=== PATIENT | male | born 1960 | race Hispanic/Latino ===

== ENCOUNTER 2016-07-17 11:05 | Emergency (ER) | payer SELFPAY ==
--- NOTE | 2016-07-17 11:41 | XRay Report ---
CHEST XRAY, 2 VIEWS: History: Shortness of breath. Findings: There is mild diffuse interstitial coarsening. The lungs are hyperexpanded but clear. No infiltrate, pleural fluid or pneumothorax is detected. The cardiac silhouette and pulmonary vasculature are within normal limits for technique. The bony thorax is unremarkable. IMPRESSION: Changes consistent with COPD. No acute cardiopulmonary process.
[2016-07-17 12:02] LABS: Basophils % (Auto) 0.7 % (0.0-1.8); Eosinophils % (Auto) 0.7 % (0.0-4.3); Hematocrit 52.5 % (35.5-45.6); Hemoglobin 17.2 gm/dl (11.8-15.2); Mean Corpuscular HGB Conc 33 % (32-34); Mean Corpuscular Hemoglobin 31 pg (28-32); Mean Corpuscular Volume 95 fl (84-94); Platelet Count 179 K/mm3 (140-440); Red Blood Count 5.54 M/mm3 (3.65-5.03); Red Cell Distribution Width 13.6 % (13.2-15.2); White Blood Count 4.6 K/mm3 (4.5-11.0)
[2016-07-17 12:12] LABS: Anion Gap 21 mmol/L; Blood Urea Nitrogen 8 mg/dL (9-20); Calcium 9.7 mg/dL (8.4-10.2); Carbon Dioxide 27 mmol/L (22-30); Chloride 93.1 mmol/L (98-107); Glucose 100 mg/dL (75-100); Potassium 4.7 mmol/L (3.6-5.0); Sodium 136 mmol/L (137-145)
[2016-07-17] MEDS ORDERED: DUONEB 0.5 MG-3 MG/3 ML SOLN IH ONE (17:40)
--- NOTE | 2016-07-17 17:43 | Emergency Department Report ---
HPI - General Chief Complaint: Dyspnea/Respdistress Time Seen by Provider: 07/17/16 17:26 - HPI HPI: This is a 55-year-old male who presents to the emergency department with complaint of acute on chronic shortness of breath. Has been going on for the past 1.5 years but has worsened over the past few months. Over the past few days patient is also complaining of some intermittent palpitations. He complains of his bilateral legs being "on fire." He has some intermittent chest pain when he takes deep breaths. Patient is a chronic tobacco smoker. He denies any illicit drug use or alcohol abuse. He does not have a primary care doctor. He has a past medical history of hypertension but is not on any medications for it. No recent travel or sick contacts at home. He denies any fever, nausea, vomiting, back pain. He has not taken anything for symptoms prior to presentation. ED Past Medical Hx - Past Medical History Hx Hypertension: Yes - Surgical History Additional Surgical History: murmur - Social History Smoking Status: Current Every Day Smoker Substance Use Type: None - Medications Home Medications: Home Medications Medication Instructions Recorded Confirmed Last Taken Type ALBUTEROL Inhaler [ProAir HFA 2 puff IH QID PRN #1 inhalation 07/17/16 Unknown Rx Inhaler] Aspirin [Aspirin BABY CHEW TAB] 81 mg PO QDAY 07/17/16 07/17/16 Unknown History Gabapentin [Neurontin] 300 mg PO BID #40 cap 07/17/16 Unknown Rx predniSONE [Deltasone] 20 mg PO QDAY #5 tab 07/17/16 Unknown Rx ED Review of Systems ROS: Stated complaint: EH Other details as noted in HPI Comment: All other systems reviewed and negative Constitutional: denies: chills, fever Eyes: denies: eye pain, eye discharge, vision change ENT: denies: ear pain, throat pain Respiratory: cough, shortness of breath Cardiovascular: palpitations. denies: edema Gastrointestinal: denies: abdominal pain, nausea, diarrhea Genitourinary: denies: urgency, dysuria Musculoskeletal: denies: back pain, joint swelling Skin: denies: rash, lesions Neurological: denies: headache, weakness, paresthesias Physical Exam - Physical Exam Vital Signs: Vital Signs 07/17/16 11:18 Temperature 97.4 F L Pulse Rate 90 Respiratory 26 H Rate Blood Pressure 149/115 O2 Sat by Pulse 91 Oximetry Physical Exam: GENERAL: The patient is well-developed well-nourished. HEENT: Normocephalic. Atraumatic. Extraocular motions are intact. Patient has moist mucous membranes. Pupils equal reactive to light bilaterally. NECK: Supple. Trachea is midline. CHEST/LUNGS: Mild wheezing throughout the chest. No cough heard during examination. Mild tachypnea but no accessory muscle use. There is no respiratory distress noted. HEART/CARDIOVASCULAR: Regular. There is no tachycardia. There is no gallop rub or murmur. ABDOMEN: Abdomen is soft, nontender. Patient has normal bowel sounds. There is no abdominal distention. SKIN: Skin is warm and dry. NEURO: The patient is awake, alert, and oriented. The patient is cooperative. The patient has no focal neurologic deficits. The patient has normal speech. MUSCULOSKELETAL: There is no tenderness or deformity. There is no limitation range of motion. There is no evidence of acute injury. ED Course Vital Signs 07/17/16 11:18 Temperature 97.4 F L Pulse Rate 90 Respiratory 26 H Rate Blood Pressure 149/115 O2 Sat by Pulse 91 Oximetry - ABG Interpretation Ph: 7.4 PCO2: 43 PO2: 65 Bicarbonate: 26 Interpretation: other (hypoxia) ED Medical Decision Making - Lab Data Result diagrams: 07/17/16 11:38 07/17/16 11:38 - EKG Data -: EKG Interpreted by [place] EKG shows normal: sinus rhythm, axis, intervals, QRS complexes, ST-T waves Rate: normal - EKG Data When compared to previous EKG there are: previous EKG unavailable Interpretation: normal EKG - Radiology Data Radiology results: image reviewed interpreted by me: Chest x-ray shows some hyperinflation of the lungs and flattening of the diaphragms consistent with COPD. No obvious pneumonia, pleural effusions and no pneumothorax. - Medical Decision Making This is a 55-year-old male who presents to the emergency department with complaint of acute on chronic shortness of breath as well as some burning sensation of the lower extremities. The burning sensation appears most consistent with some peripheral neuropathy. He has good cap refill and has good pedal pulses. There is no obvious rash. Patient's lungs have some mild wheezing throughout the chest that he does not appear to be in any respiratory distress. Patient had a EKG that did not show any signs of ST elevation NH or dysrhythmia. Chest x-ray appeared most consistent with COPD. ABG shows hypoxia or hypoxemia but no significant hypercapnia. Patient had a negative d- dimer so no CT of the chest was necessary. He was given a breathing treatment and some steroids and upon reevaluation he is feeling improved. Patient had some mild hypoxia when he first arrived with a pulse ox of 92% on room air. However his oxygenation improved without oxygen supplementation. Due to the patient's significant tobacco abuse history, his chest x-ray appearance and the rest of his ED course, the patient appears as if he could have COPD. However he does not appear to be in any acute distress and does not require admission at this time. He will be given a prescription for albuterol inhaler, steroids and some Neurontin for his probable peripheral neuropathy. He was given multiple primary care clinics for follow-up. He will return to the ER with any worsening of symptoms or any acute distress. - Differential Diagnosis COPD, asthma, PE, CHF, pneumonia Critical Care Time: No Critical care attestation.: If time is entered above; I have spent that time in minutes in the direct care of this critically ill patient, excluding procedure time. ED Disposition Clinical Impression: Neuropathy, Tobacco abuse COPD (chronic obstructive pulmonary disease) Qualifiers: COPD type: unspecified COPD Qualified Code(s): J44.9 - Chronic obstructive pulmonary disease, unspecified Disposition: DISCHARGED TO HOME OR SELFCARE Is pt being admited?: No Condition: Stable Instructions: Chronic Obstructive Pulmonary Disease (ED), Peripheral Neuropathy (ED) Additional Instructions: Please follow-up with a primary care doctor in the next few days. Return to the emergency department with any worsening of your symptoms or any acute distress. Prescriptions: ALBUTEROL Inhaler [ProAir HFA Inhaler] 2 puff IH QID PRN #1 inhalation PRN Reason: Shortness Of Breath Gabapentin [Neurontin] 300 mg PO BID #40 cap predniSONE [Deltasone] 20 mg PO QDAY #5 tab Referrals: PRIMARY CARE, [Primary Care Provider] - 3-5 Days [facility] [Outside] - 3-5 Days [facility] [Outside] - 3-5 Days [facility] [Outside] - 3-5 Days [facility] [Outside] - 3-5 Days Time of Disposition: 20:16
[2016-07-17 21:28] VITALS: BP 134/95
[2016-07-18 10:16] LABS: ISTAT Base Excess 2; ISTAT DEVICE 0; ISTAT HCO3 26.4; ISTAT PCO2 42.9 (35-45); ISTAT PH 7.397 (7.35-7.45); ISTAT PO2 65 (80-105); ISTAT SO2 92; ISTAT TCO2 28
== END 2016-07-17 20:25 | disposition home or self-care (01) ==
LOC: ED 11:05
DX: J44.9 Chronic obstructive pulmonary disease, unspecified (principal); G62.9 Polyneuropathy, unspecified; F17.200 Nicotine dependence, unspecified, uncomplicated; I10 Essential (primary) hypertension
CPT/HCPCS: 36415; 71020; 80048; 82803; 84484; 85025; 85379; 93005; 93010; 94640

== ENCOUNTER 2016-12-27 11:54 | Emergency (ER) | payer MEDICAID ==
[2016-12-27 12:40] LABS: Basophils % (Auto) 0.7 % (0.0-1.8); Eosinophils % (Auto) 0.2 % (0.0-4.3); Hematocrit 47.4 % (35.5-45.6); Hemoglobin 16.3 gm/dl (11.8-15.2); Mean Corpuscular HGB Conc 34 % (32-34); Mean Corpuscular Hemoglobin 33 pg (28-32); Mean Corpuscular Volume 95 fl (84-94); Platelet Count 152 K/mm3 (140-440); Red Blood Count 5.01 M/mm3 (3.65-5.03); Red Cell Distribution Width 13.3 % (13.2-15.2); White Blood Count 5.4 K/mm3 (4.5-11.0)
[2016-12-27 12:49] LABS: INR 1.11 (0.87-1.13)
[2016-12-27 12:50] LABS: Partial Thromboplastin Time 30.3 Sec. (24.2-36.6)
[2016-12-27 12:57] LABS: Anion Gap 18 mmol/L; BUN/Creatinine Ratio 8.75; Blood Urea Nitrogen 7 mg/dL (9-20); Calcium 9.2 mg/dL (8.4-10.2); Carbon Dioxide 28 mmol/L (22-30); Chloride 91.8 mmol/L (98-107); Glucose 127 mg/dL (75-100); Sodium 134 mmol/L (137-145)
[2016-12-27] MEDS ORDERED: NACL ONE (13:12)
--- NOTE | 2016-12-27 13:41 | XRay Report ---
AP CHEST: HISTORY: chest pain The lungs are hyperinflated. No evidence for infiltrate, pleural effusion or pneumothorax. Normal heart and mediastinal structures. Normal bony thorax. IMPRESSION: Emphysema.
--- NOTE | 2016-12-27 14:21 | Cat Scan Report ---
CT angiography of the chest including 3-D reconstructed images. History: Chest pain and shortness of breath. Findings: There is no evidence of pulmonary emboli. The lungs are free of acute infiltrates. No pulmonary nodules are seen. Centrilobular emphysematous changes are seen especially in the upper lobes. There is no pleural fluid. Impression: No evidence of pulmonary emboli. 2. COPD.
--- NOTE | 2016-12-27 15:28 | Emergency Department Report ---
HPI - General Chief Complaint: Chest Pain Time Seen by Provider: 12/27/16 12:38 - HPI HPI: Chest pain Onset 5 days prior to evaluation, onset while at rest, the pain is relieved with otc meds. patient states the pain does not get worse with exertion , or coughing, patient states no nausea/vomiting, no diaphoresis, no shortness of breath, no leg swelling, no recent prolong travel, no recent trauma. Associated Pain (0=none, 10=severe) Location: mid chest Radiation: none Severity now (0-10): 2 Severity at worst (0-10): 3 Duration: 5 minutes Characterized as: sharp. Pertinent PMH no <-- Coronary Disease no <-- Cerebrovascular disease no <-- Diabetes Mellitus no <-- Peptic Ulcer or GERD no <-- Chest injury or overuse Pertinent Medications: no <-- Aspirin was taken today no <-- Nitroglycerin ED Past Medical Hx - Past Medical History Previous Medical History?: Yes Hx Hypertension: Yes Hx COPD: Yes Additional medical history: A Fib - Surgical History Additional Surgical History: murmur - Social History Smoking Status: Current Every Day Smoker Substance Use Type: None - Medications Home Medications: Home Medications Medication Instructions Recorded Confirmed Last Taken Type ALBUTEROL Inhaler [ProAir HFA 2 puff IH QID PRN #1 inhalation 07/17/16 12/27/16 Unknown Rx Inhaler] Aspirin [Aspirin BABY CHEW TAB] 81 mg PO QDAY 07/17/16 12/27/16 12/27/16 History Acetaminophen [Non-Aspirin Pain 1,000 mg PO BID 12/27/16 12/27/16 12/26/16 History Relief] Fluticasone/Salmeterol [Advair 1 puff IH BID 12/27/16 12/27/16 Unknown History Diskus 250-50 mcg] Ketorolac [Toradol] 10 mg PO Q6H PRN #20 tablet 12/27/16 Unknown Rx Metoprolol [Lopressor] 12.5 mg PO BID 12/27/16 12/27/16 12/27/16 History Tiotropium Br/Olodaterol HCl 2 puff IH DAILY 12/27/16 12/27/16 Unknown History [Stiolto Respimat Inhal [place]] ED Review of Systems ROS: Stated complaint: CHEST PAIN Other details as noted in HPI Comment: All other systems reviewed and negative Constitutional: no symptoms reported Eyes: as per HPI ENT: as per HPI Respiratory: no symptoms reported Cardiovascular: chest pain Physical Exam - Physical Exam Vital Signs: Vital Signs 12/27/16 12/27/16 12/27/16 12:05 12:12 12:15 Temperature 97.8 F Pulse Rate 68 Respiratory 18 Rate Blood Pressure 133/84 133/84 133/84 O2 Sat by Pulse 98 98 Oximetry 12/27/16 12/27/16 12/27/16 12:31 12:45 13:00 Temperature Pulse Rate 65 70 Respiratory 20 20 Rate Blood Pressure 122/74 122/74 107/76 O2 Sat by Pulse 99 96 97 Oximetry 12/27/16 13:15 Temperature Pulse Rate 69 Respiratory 19 Rate Blood Pressure 107/76 O2 Sat by Pulse 97 Oximetry Physical Exam: Physical Exam: - General Limitations: No Limitations General appearance: alert, in no apparent distress, obese - Head Head exam: Present: atraumatic, normocephalic - Eye Eye exam: Present: normal appearance - ENT ENT exam: Present: mucous membranes moist - Neck Neck exam: Present: normal inspection - Respiratory Respiratory exam: Present: normal lung sounds bilaterally. Absent: respiratory distress - Cardiovascular Cardiovascular Exam: Present: normal rhythm, tachycardia. Absent: systolic murmur, diastolic murmur, rubs, gallop - GI/Abdominal GI/Abdominal exam: Present: soft, normal bowel sounds - Extremities Exam Extremities exam: Present: normal inspection - Back Exam Back exam: Present: normal inspection - Neurological Exam Neurological exam: Present: alert, oriented X3 - Psychiatric Psychiatric exam: normal affect and mood - Skin Skin exam: Present: warm, dry, intact, normal color. Absent: rash ED Course Vital Signs 12/27/16 12/27/16 12/27/16 12:05 12:12 12:15 Temperature 97.8 F Pulse Rate 68 Respiratory 18 Rate Blood Pressure 133/84 133/84 133/84 O2 Sat by Pulse 98 98 Oximetry 12/27/16 12/27/16 12/27/16 12:31 12:45 13:00 Temperature Pulse Rate 65 70 Respiratory 20 20 Rate Blood Pressure 122/74 122/74 107/76 O2 Sat by Pulse 99 96 97 Oximetry 12/27/16 13:15 Temperature Pulse Rate 69 Respiratory 19 Rate Blood Pressure 107/76 O2 Sat by Pulse 97 Oximetry ED Medical Decision Making - Lab Data Result diagrams: 12/27/16 12:24 12/27/16 12:24 Critical care attestation.: If time is entered above; I have spent that time in minutes in the direct care of this critically ill patient, excluding procedure time. ED Disposition Clinical Impression: Chest pain Qualifiers: Chest pain type: other chest pain Qualified Code(s): R07.89 - Other chest pain Disposition: - TO HOME OR SELFCARE Is pt being admited?: No Does the pt Need Aspirin: No Condition: Stable Instructions: Chest Pain (ED) Prescriptions: Ketorolac [Toradol] 10 mg PO Q6H PRN #20 tablet PRN Reason: Pain Referrals: PRIMARY CARE, [Primary Care Provider] - 3-5 Days
[2016-12-27 15:38] VITALS: BP 110/84
== END 2016-12-27 15:36 | disposition home or self-care (01) ==
LOC: ED 11:54
DX: R07.89 Other chest pain (principal); I10 Essential (primary) hypertension; F17.200 Nicotine dependence, unspecified, uncomplicated; J44.9 Chronic obstructive pulmonary disease, unspecified; Z79.82 Long term (current) use of aspirin
CPT/HCPCS: 36415; 71010; 71275; 80048; 84484; 85025; 85610; 85730; 93005; 93010; 99285; Q9967

== ENCOUNTER 2017-05-30 22:09 | Emergency (ER) | payer MEDICAID ==
[2017-05-31 02:28] LABS: Basophils % (Auto) 0.3 % (0.0-1.8); Eosinophils # (Auto) 0.1 K/mm3 (0.0-0.4); Eosinophils % (Auto) 0.7 % (0.0-4.3); Hematocrit 45.8 % (35.5-45.6); Hemoglobin 15.4 gm/dl (11.8-15.2); Lymphocytes # (Auto) 1.6 K/mm3 (1.2-5.4); Lymphocytes % (Auto) 22.5 % (13.4-35.0); Mean Corpuscular HGB Conc 34 % (32-34); Mean Corpuscular Hemoglobin 33 pg (28-32); Mean Corpuscular Volume 98 fl (84-94); Monocytes # (Auto) 0.5 K/mm3 (0.0-0.8); Monocytes % (Auto) 6.9 % (0.0-7.3); Platelet Count 145 K/mm3 (140-440); Red Blood Count 4.68 M/mm3 (3.65-5.03)
[2017-05-31 02:45] LABS: Alanine Aminotransferase 12 units/L (7-56); Albumin 4.6 g/dL (3.9-5); BUN/Creatinine Ratio 10; Blood Urea Nitrogen 8 mg/dL (9-20); Calcium 9.4 mg/dL (8.4-10.2); Hemolysis Index 39; Lipase 36 units/L (13-60)
[2017-05-31 03:14] LABS: Bilirubin,Urine NEG (Negative); Blood,Urine NEG (Negative); Color,Urine Yellow (Yellow); Mucus,Urine 1+ /HPF; Nitrite,Urine NEG (Negative); Protein,Urine <15 mg/dL mg/dL (Negative)
--- NOTE | 2017-05-31 07:21 | Emergency Department Report ---
ED Abdominal Pain HPI - General Chief Complaint: Abdominal Pain Stated Complaint: ABD PAIN Time Seen by Provider: 05/31/17 07:17 Source: patient, EMS Mode of arrival: Stretcher Limitations: Other - History of Present Illness Initial Comments: Patient has had recurrent episodes of abdominal pain for months. Seen [facility] for the same. He's had a recent colonoscopy that showed diverticulosis. He's been told he had an enlarged prostate. The abdomen pain was in the periumbilical to supraumbilical region. It was associated with a "knot" that is not visible now. Patient admitted that he did have a panic attack. He was breathing fast and short of breath despite his home oxygen. He states he's had a recent negative CT rule out pulmonary embolism and no issue found in his upper abdomen and apparently he is not having any symptoms at this time. The episode lasted for minutes. - Related Data Home Medications Medication Instructions Recorded Confirmed Last Taken Aspirin [Aspirin BABY CHEW TAB] 81 mg PO QDAY 07/17/16 03/09/17 03/08/17 Acetaminophen [Non-Aspirin Pain 500 mg PO BID 12/27/16 03/09/17 03/08/17 Relief] Fluticasone/Salmeterol [Advair 1 puff IH BID 12/27/16 03/09/17 03/09/17 Diskus 250-50 mcg] Metoprolol [Lopressor] 12.5 mg PO BID 12/27/16 03/09/17 03/09/17 Tiotropium Br/Olodaterol HCl 2 puff IH DAILY 12/27/16 03/09/17 03/08/17 [Stiolto Respimat Inhal [place]] Advair 250-50 Diskus 250 mcg INHALATION BID 03/09/17 03/09/17 03/09/17 Ventolin HFA 2 puff INHALATION PRN PRN 03/09/17 03/09/17 03/08/17 Previous Rx's Medication Instructions Recorded Last Taken Type Ketorolac [Toradol] 10 mg PO Q6H PRN #20 tablet 12/27/16 Unknown Rx traMADol [Ultram] 50 mg PO Q6HR PRN #10 tablet 05/31/17 Unknown Rx Allergies Allergy/AdvReac Type Severity Reaction Status Date / Time No Known Allergies Allergy Verified 03/08/17 14:16 ED Review of Systems ROS: Stated complaint: ABD PAIN Other details as noted in HPI ED Past Medical Hx - Past Medical History Hx Hypertension: Yes Hx COPD: Yes Additional medical history: A Fib - Surgical History Additional Surgical History: murmur - Social History Smoking Status: Current Every Day Smoker Substance Use Type: None - Medications Home Medications: Home Medications Medication Instructions Recorded Confirmed Last Taken Type Aspirin [Aspirin BABY CHEW TAB] 81 mg PO QDAY 07/17/16 03/09/17 03/08/17 History Acetaminophen [Non-Aspirin Pain 500 mg PO BID 12/27/16 03/09/17 03/08/17 History Relief] Fluticasone/Salmeterol [Advair 1 puff IH BID 12/27/16 03/09/17 03/09/17 History Diskus 250-50 mcg] Ketorolac [Toradol] 10 mg PO Q6H PRN #20 tablet 12/27/16 03/09/17 Unknown Rx Metoprolol [Lopressor] 12.5 mg PO BID 12/27/16 03/09/17 03/09/17 History Tiotropium Br/Olodaterol HCl 2 puff IH DAILY 12/27/16 03/09/17 03/08/17 History [Stiolto Respimat Inhal [place]] Advair 250-50 Diskus 250 mcg INHALATION BID 03/09/17 03/09/17 03/09/17 History Ventolin HFA 2 puff INHALATION PRN PRN 03/09/17 03/09/17 03/08/17 History traMADol [Ultram] 50 mg PO Q6HR PRN #10 tablet 05/31/17 Unknown Rx ED Physical Exam - General Limitations: Other ED Course Vital Signs 05/31/17 05/31/17 05/31/17 00:43 01:17 06:40 Temperature 98.0 F 98 F Pulse Rate 97 H 97 H 95 H Respiratory 18 18 20 Rate Blood Pressure 133/92 133/92 O2 Sat by Pulse 96 98 Oximetry 05/31/17 05/31/17 05/31/17 06:46 07:00 07:15 Temperature Pulse Rate 89 78 77 Respiratory 18 18 16 Rate Blood Pressure 124/73 114/85 115/79 O2 Sat by Pulse 96 Oximetry - Reevaluation(s) Reevaluation #1: Prior EKG was reviewed and it was completely normal. Patient is appropriate for outpatient follow-up 05/31/17 07:44 ED Medical Decision Making - Lab Data Result diagrams: 05/31/17 01:40 05/31/17 01:40 Laboratory Results - last 24 hr 05/31/17 05/31/17 05/31/17 01:40 01:40 Unknown WBC 7.1 RBC 4.68 Hgb 15.4 H Hct 45.8 H MCV 98 H MCH 33 H MCHC 34 RDW 13.0 L Plt Count 145 Lymph % (Auto) 22.5 [place] % (Auto) 6.9 Eos % (Auto) 0.7 Baso % (Auto) 0.3 Lymph # 1.6 [place] # 0.5 Eos # 0.1 Baso # 0.0 Seg Neutrophils % 69.6 Seg Neutrophils # 4.9 Sodium 138 Potassium 5.1 H Chloride 97.4 L Carbon Dioxide 30 Anion Gap 16 BUN 8 L Creatinine 0.8 Estimated GFR > 60 BUN/Creatinine Ratio 10 Glucose 96 Calcium 9.4 Total Bilirubin 0.40 AST 18 ALT 12 Alkaline Phosphatase 59 Total Protein 7.1 Albumin 4.6 Albumin/Globulin Ratio 1.8 Lipase 36 Urine Color Yellow Urine Turbidity Clear Urine pH 6.0 Ur Specific [place] 1.023 Urine Protein <15 mg/dl Urine Glucose (UA) Neg Urine Ketones Neg Urine Blood Neg Urine Nitrite Neg Urine Bilirubin Neg Urine Urobilinogen 4.0 Ur Leukocyte Esterase Neg Urine WBC (Auto) 1.0 Urine RBC (Auto) 3.0 U Epithel Cells (Auto) < 1.0 Urine Mucus 1+ - EKG Data -: EKG Interpreted by [place] EKG shows normal: sinus rhythm, axis, intervals, QRS complexes, ST-T waves Rate: normal - EKG Data Interpretation: nonspecific ST-T wave amisha, other (biatrial abnormality) Critical care attestation.: If time is entered above; I have spent that time in minutes in the direct care of this critically ill patient, excluding procedure time. ED Disposition Clinical Impression: Abdominal pain Qualifiers: Abdominal location: periumbilical Qualified Code(s): R10.33 - Periumbilical pain Disposition: - TO HOME OR SELFCARE Is pt being admited?: No Does the pt Need Aspirin: No Condition: Stable Instructions: Abdominal Pain (ED) Additional Instructions: Return any acute change or additional symptoms as needed. Follow-up with your usual physicians. Prescriptions: traMADol [Ultram] 50 mg PO Q6HR PRN #10 tablet PRN Reason: Pain Referrals: [facility] [Provider Group] - 3-5 Days [facility] [Provider Group] - 3-5 Days WANDA PANIAGUA MD [Primary Care Provider] - 24 Hours Time of Disposition: 08:04
[2017-05-31 09:29] VITALS: BP 125/79
== END 2017-05-31 09:38 | disposition home or self-care (01) ==
LOC: ED 22:09
DX: R10.33 Periumbilical pain (principal); Z79.82 Long term (current) use of aspirin; I10 Essential (primary) hypertension; J44.9 Chronic obstructive pulmonary disease, unspecified; I48.91 Unspecified atrial fibrillation; F17.200 Nicotine dependence, unspecified, uncomplicated
CPT/HCPCS: 36415; 80053; 81001; 83690; 85025; 93005; 93010; 99284

== ENCOUNTER 2017-06-28 08:49 | Outpatient (CLI) | payer MEDICAID ==
[2017-06-28 09:32] LABS: Blood Urea Nitrogen 10 mg/dL (9-20)
--- NOTE | 2017-06-28 22:22 | Cat Scan Report ---
FINAL REPORT PROCEDURE: CT ABDOMEN PELVIS W CON TECHNIQUE: Computerized axial tomography of the abdomen and pelvis was performed after the IV injection of iodinated nonionic contrast. HISTORY: ABDOMINAL PAIN COMPARISON: No prior studies are available for comparison. FINDINGS: Moderate degree centrilobular emphysematous changes are noted involving bilateral lungs. Liver, spleen and adrenal glands are within normal limits. Right kidney is unremarkable. Left kidney demonstrates irregular areas of scarring in the upper and mid portions. There is no obstructive uropathy. Urinary bladder is partially distended with normal outlines. Aorta is of normal caliber. There is no free fluid or free air. Gallbladder is unremarkable. Small bowel loops are within normal limits. Appendix is not distinctly visualized. There are no inflammatory changes in the right lower quadrant. IMPRESSION: This study is limited due to paucity of intra-abdominal fat. No acute intra-abdominal or pelvic pathology.
== END 2017-06-28 08:50 | disposition home or self-care (01) ==
LOC: CT 08:49
PROVIDERS: ATTEND Specialist
DX: N32.89 Other specified disorders of bladder (principal); J98.4 Other disorders of lung
CPT/HCPCS: 36415; 74177; 82565; 84520; Q9967

== ENCOUNTER 2017-11-06 09:46 | Inpatient (IN) | payer MEDICAID ==
[2017-11-06] MEDS ORDERED: ATROVENT IH ONE (10:40)
[2017-11-06] MEDS ORDERED: PROVENTIL IH ONE (10:40)
[2017-11-06 10:49] LABS: Basophils % (Auto) 0.7 % (0.0-1.8); Eosinophils % (Auto) 0.4 % (0.0-4.3); Hematocrit 43.5 % (35.5-45.6); Hemoglobin 14.8 gm/dl (11.8-15.2); Lymphocytes # (Auto) 0.9 K/mm3 (1.2-5.4); Lymphocytes % (Auto) 17.7 % (13.4-35.0); Mean Corpuscular HGB Conc 34 % (32-34); Mean Corpuscular Hemoglobin 33 pg (28-32); Mean Corpuscular Volume 97 fl (84-94); Monocytes # (Auto) 0.4 K/mm3 (0.0-0.8); Monocytes % (Auto) 8.5 % (0.0-7.3); Platelet Count 175 K/mm3 (140-440); Red Blood Count 4.48 M/mm3 (3.65-5.03); Red Cell Distribution Width 12.8 % (13.2-15.2)
[2017-11-06 11:02] LABS: BUN/Creatinine Ratio 14; Blood Urea Nitrogen 10 mg/dL (9-20); Calcium 9.4 mg/dL (8.4-10.2); Hemolysis Index 9
--- NOTE | 2017-11-06 11:59 | XRay Report ---
PA and lateral chest: SOB The lungs are hyperinflated but clear. No nodules and no infiltrates. The heart is normal in size. No vascular congestion. No obvious change compared to prior exam of December 27, 2016. Impression: COPD. No acute findings noted.
--- NOTE | 2017-11-06 12:13 | Emergency Department Report ---
ED General Adult HPI - General Chief complaint: Dyspnea/Respdistress Stated complaint: EH Time Seen by Provider: 11/06/17 10:04 Source: patient, EMS Mode of arrival: Stretcher Limitations: No Limitations - History of Present Illness Initial comments: Patient presents to [facility] department with increased shortness of breath 2 weeks. Patient states that his O2 machine at home has not been functioning correctly. Patient denies chest pain, Celestino-Pen, headache. Patient endorses that his shortness of breath is worse with exertion. -: Gradual Radiation: non-radiation Severity scale (0 -10): 0 Consistency: constant Improves with: none Worsens with: none Associated Symptoms: denies other symptoms Treatments Prior to Arrival: none - Related Data Home Medications Medication Instructions Recorded Confirmed Last Taken Aspirin [Aspirin BABY CHEW TAB] 81 mg PO QDAY 07/17/16 03/09/17 03/08/17 Acetaminophen [Non-Aspirin Pain 500 mg PO BID 12/27/16 03/09/17 03/08/17 Relief] Fluticasone/Salmeterol [Advair 1 puff IH BID 12/27/16 03/09/17 03/09/17 Diskus 250-50 mcg] Metoprolol [Lopressor] 12.5 mg PO BID 12/27/16 03/09/17 03/09/17 Tiotropium Br/Olodaterol HCl 2 puff IH DAILY 12/27/16 03/09/17 03/08/17 [Stiolto Respimat Inhal [place]] Advair 250-50 Diskus 250 mcg INHALATION BID 03/09/17 03/09/17 03/09/17 Ventolin HFA 2 puff INHALATION PRN PRN 03/09/17 03/09/17 03/08/17 Previous Rx's Medication Instructions Recorded Last Taken Type Ketorolac [Toradol] 10 mg PO Q6H PRN #20 tablet 12/27/16 Unknown Rx traMADol [Ultram] 50 mg PO Q6HR PRN #10 tablet 05/31/17 Unknown Rx Allergies Allergy/AdvReac Type Severity Reaction Status Date / Time No Known Allergies Allergy Verified 11/06/17 10:03 ED Review of Systems ROS: Stated complaint: EH Other details as noted in HPI Comment: All other systems reviewed and negative Constitutional: denies: chills, fever Eyes: denies: eye pain, eye discharge, vision change ENT: denies: ear pain, throat pain Respiratory: shortness of breath. denies: cough, wheezing Cardiovascular: denies: chest pain, palpitations Endocrine: no symptoms reported Gastrointestinal: denies: abdominal pain, nausea, diarrhea Genitourinary: denies: urgency, dysuria Musculoskeletal: denies: back pain, joint swelling, arthralgia Skin: denies: rash, lesions Neurological: denies: headache, weakness, paresthesias Psychiatric: denies: anxiety, depression Hematological/Lymphatic: denies: easy bleeding, easy bruising ED Past Medical Hx - Past Medical History Previous Medical History?: Yes Hx Hypertension: Yes Hx COPD: Yes Additional medical history: A Fib. AAA - Surgical History Additional Surgical History: murmur - Social History Smoking Status: Current Every Day Smoker Substance Use Type: None - Medications Home Medications: Home Medications Medication Instructions Recorded Confirmed Last Taken Type Aspirin [Aspirin BABY CHEW TAB] 81 mg PO QDAY 07/17/16 03/09/17 03/08/17 History Acetaminophen [Non-Aspirin Pain 500 mg PO BID 12/27/16 03/09/17 03/08/17 History Relief] Fluticasone/Salmeterol [Advair 1 puff IH BID 12/27/16 03/09/17 03/09/17 History Diskus 250-50 mcg] Ketorolac [Toradol] 10 mg PO Q6H PRN #20 tablet 12/27/16 03/09/17 Unknown Rx Metoprolol [Lopressor] 12.5 mg PO BID 12/27/16 03/09/17 03/09/17 History Tiotropium Br/Olodaterol HCl 2 puff IH DAILY 12/27/16 03/09/17 03/08/17 History [Stiolto Respimat Inhal [place]] Advair 250-50 Diskus 250 mcg INHALATION BID 03/09/17 03/09/17 03/09/17 History Ventolin HFA 2 puff INHALATION PRN PRN 03/09/17 03/09/17 03/08/17 History traMADol [Ultram] 50 mg PO Q6HR PRN #10 tablet 05/31/17 Unknown Rx ED Physical Exam - General Limitations: No Limitations General appearance: alert, in no apparent distress - Head Head exam: Present: atraumatic, normocephalic - Eye Eye exam: Present: normal appearance, PERRL - ENT ENT exam: Present: mucous membranes moist - Neck Neck exam: Present: normal inspection - Respiratory Respiratory exam: Present: respiratory distress, wheezes (and expiratory wheezing), other (mouth respiratory distress with diminished breath sounds) - Cardiovascular Cardiovascular Exam: Present: regular rate, normal rhythm. Absent: systolic murmur, diastolic murmur, rubs, gallop - GI/Abdominal GI/Abdominal exam: Present: soft, normal bowel sounds - Rectal Rectal exam: Present: deferred - Extremities Exam Extremities exam: Present: normal inspection - Back Exam Back exam: Present: normal inspection - Neurological Exam Neurological exam: Present: alert, oriented X3 - Psychiatric Psychiatric exam: Present: normal affect, normal mood - Skin Skin exam: Present: warm, dry, intact, normal color. Absent: rash ED Course Vital Signs 11/06/17 10:00 Pulse Rate 84 Respiratory 16 Rate Blood Pressure 130/89 O2 Sat by Pulse 94 Oximetry ED Medical Decision Making - Lab Data Result diagrams: 11/06/17 10:35 11/06/17 10:35 - Medical Decision Making Patient received a breathing treatment with albuterol and Atrovent and status post breathing treatment to patient began having more difficulty with breathing and use necessity muscles to breathe along with tripoding. At this time ABG was done and the patient was placed on BiPAP Critical care attestation.: If time is entered above; I have spent that time in minutes in the direct care of this critically ill patient, excluding procedure time. ED Disposition Clinical Impression: Respiratory distress Disposition: OP ADMIT IP TO THIS HOSP Is pt being admited?: Yes Does the pt Need Aspirin: No Condition: Fair Referrals: PRIMARY CARE,MD [Primary Care Provider] - 3-5 Days Time of Disposition: 12:45
[2017-11-06] MEDS ORDERED: XOPENEX IH PRN (22:18)
[2017-11-06] MEDS ORDERED: SODIUM CHLORIDE FLUSH SYRINGE 10 ML IV PRN (22:36)
[2017-11-06] MEDS ORDERED: TYLENOL PO PRN ×2 (22:36→22:40)
[2017-11-06] MEDS ORDERED: PROVENTIL IH PRN (22:36)
[2017-11-06] MEDS ORDERED: ATROVENT IH PRN (22:36)
[2017-11-06] MEDS ORDERED: MORPHINE IV PRN (22:36)
[2017-11-06] MEDS ORDERED: PERCOCET 5/325 PO PRN (22:36)
[2017-11-06] MEDS ORDERED: ZOFRAN IV PRN (22:36)
[2017-11-06] MEDS ORDERED: ULTRAM PO PRN (22:40)
[2017-11-06] MEDS ORDERED: PROAIR IH PRN (22:40)
[2017-11-06] MEDS ORDERED: NON-FORMULARY (Budesoni/Formotero 160-4.5(Nf) 2 PUFF) IH SCH (22:45)
--- NOTE | 2017-11-06 22:50 | Event Note ---
Date: 11/06/17 See dictated history and physical the reports Acute respiratory failure with hypercarbia COPD exacerbation
[2017-11-06] MEDS: DUONEB *Not for PRN Use IH SCH (22:55)
[2017-11-06] MEDS ORDERED: CALCIUM GLUCONATE 2,000 MG in NACL 0.9% 100 ML IV ONE (22:56)
[2017-11-06] MEDS ORDERED: CALCIUM CHLORIDE 1,000 MG in NACL 0.9% 100 ML IV ONE (23:15)
[2017-11-06] MEDS: LOPRESSOR PO SCH (23:41)
[2017-11-06] MEDS: PLETAL PO SCH (23:42)
--- NOTE | 2017-11-06 23:42 | History and Physical Report ---
Room number is 492. CHIEF COMPLAINT: Increasing shortness of breath for 2 weeks. HISTORY OF PRESENT ILLNESS: A 57-year-old male with history of COPD, still smoking, comes in for shortness of breath for 2 weeks' duration. The patient states that his oxygen machine at home is not functioning. The patient has been having cough productive of mucoid sputum. No fever or chills. Worsening shortness of breath over the last 2 weeks, today it is more and feels that he is not getting enough oxygen. No recent travel. Not using his oxygen machine properly. Exacerbating factor is his oxygen machine. PAST MEDICAL HISTORY: Significant for COPD, hypertension, peripheral arterial disease, atrial fibrillation and aortic aneurysm. SOCIAL HISTORY: Smokes a half a pack a day. PAST SURGICAL HISTORY: None. FAMILY HISTORY: Hypertension. REVIEW OF SYSTEMS: Significant for increasing shortness of breath and wheezing and cough productive of mucoid sputum. Otherwise, review of systems negative. A 14-point review of systems done. PHYSICAL EXAMINATION: GENERAL: Middle-aged male, cooperative during examination. VITAL SIGNS: Blood pressure 99/66, temperature is 98.8, respiratory rate is 22. Initial sats were low, which has improved with oxygen. Initial sats in the mid 80s, improved to 96 with oxygen and BiPAP machine. 84 was oxygen saturation at 12:30 p.m. HEENT: Unremarkable. Pupils equal and reactive. NECK: Supple. Accessory muscles of respiration are prominent. LUNGS: Scattered rhonchi bilaterally. Diminished air entry. Severe rhonchi on the posterior side. CARDIOVASCULAR: S1, S2 heard. No gallop, no murmur, no rub. Apical impulse in left fifth intercostal space and midclavicular line. ABDOMEN: Soft and benign. No hepatosplenomegaly. No guarding, no rigidity. Hernial orifices are normal. EXTREMITIES: Good pedal pulses. No pedal edema. CENTRAL NERVOUS SYSTEM: Alert and oriented x 4, nonfocal exam. SKIN: Normal. LABORATORY DATA: Significant for white count of 5100, H and H is 14.8 and 43.5, platelet count is 175,000. ABG significant for pH of 7.274, pCO2 of 77.4, pO2 of 116, bicarbonate of 35.9. Sodium is 138, potassium is 5.2, chloride is 95.7, bicarbonate is 34, BUN and creatinine 10 and 0.7. Chest x-ray shows COPD. Emphysematous lungs. Lungs are hyperinflated. No acute findings. EKG: Atrial fibrillation. ASSESSMENT AND PLAN: 1. Acute respiratory failure secondary to hypercarbia and hypoxia. The patient initiated on IV Solu-Medrol, IV Levaquin and DuoNebs p.r.n. 2. Acute chronic obstructive pulmonary disease exacerbation. Same as above. IV Solu-Medrol, IV Levaquin and DuoNebs. 3. Peripheral arterial disease. Continue Pletal. 4. Hypertension. Continue metoprolol. 5. Hyperkalemia. Calcium gluconate given. Should correct with IV fluids. Recheck potassium in the morning. 6. Deep venous thrombosis prophylaxis. Heparin 5000 q. 12h. JOB# [id number] SANTANA/LAURA
[2017-11-06] MEDS: HEPARIN SUB-Q SCH (23:43)
[2017-11-07] MEDS: MUCINEX ER PO SCH ×3 (00:57→21:15)
[2017-11-07] MEDS: DUONEB *Not for PRN Use IH SCH ×5 (01:38→21:23)
[2017-11-07] MEDS: BROVANA NEBU IH SCH ×3 (01:39→21:23)
[2017-11-07] MEDS: PULMICORT IH SCH ×3 (01:39→21:23)
[2017-11-07 07:26] LABS: Basophils % (Auto) 0.3 % (0.0-1.8); Eosinophils % (Auto) 0.5 % (0.0-4.3); Hematocrit 42.3 % (35.5-45.6); Hemoglobin 14.2 gm/dl (11.8-15.2); Lymphocytes # (Auto) 1.2 K/mm3 (1.2-5.4); Lymphocytes % (Auto) 17.5 % (13.4-35.0); Mean Corpuscular HGB Conc 34 % (32-34); Mean Corpuscular Hemoglobin 33 pg (28-32); Mean Corpuscular Volume 98 fl (84-94); Monocytes # (Auto) 0.7 K/mm3 (0.0-0.8); Monocytes % (Auto) 9.6 % (0.0-7.3); Platelet Count 177 K/mm3 (140-440); Red Blood Count 4.32 M/mm3 (3.65-5.03); Red Cell Distribution Width 12.8 % (13.2-15.2)
[2017-11-07 07:58] LABS: Alanine Aminotransferase 12 units/L (7-56); Albumin 4.7 g/dL (3.9-5); BUN/Creatinine Ratio 16; Blood Urea Nitrogen 11 mg/dL (9-20); Calcium 9.8 mg/dL (8.4-10.2); Hemolysis Index 3
[2017-11-07] MEDS ORDERED: SPIRIVA IH SCH (09:00)
[2017-11-07] MEDS: PLETAL PO SCH ×2 (09:33→21:15)
[2017-11-07] MEDS: LOPRESSOR PO SCH ×2 (09:33→21:14)
[2017-11-07] MEDS: HALFPRIN EC PO SCH (09:33)
[2017-11-07] MEDS: PEPCID PO SCH ×2 (09:33→21:15)
[2017-11-07] MEDS: SODIUM CHLORIDE FLUSH SYRINGE 10 ML IV SCH ×2 (09:34→21:14)
[2017-11-07] MEDS: HEPARIN SUB-Q SCH ×3 (09:34→21:19)
[2017-11-07] MEDS ORDERED: LOPRESSOR PO SCH (10:00)
[2017-11-07] MEDS ORDERED: TIOTROPIUM BROMIDE IH SCH (10:00)
[2017-11-07] MEDS ORDERED: LEVAQUIN 750MG/150ML 750 MG/150 ML BAG IV SCH (10:00)
--- NOTE | 2017-11-07 11:54 | Progress Note ---
Assessment and Plan Assessment and plan: Acute hypercapneic respiratory failure. Cont suportive care Acute COPD exacerbation. IV Abx, Duonebs, IV Solumedrol PVD. Cont Pletal HTN. Cont metoprolol Hyperkalemia. Resolved History Interval history: No new issues Hospitalist Physical - Constitutional Vitals: Temp Pulse Resp BP Pulse Ox 97.9 F 107 H 22 120/77 97 11/07/17 09:11 11/07/17 10:00 11/07/17 10:00 11/07/17 09:33 11/07/17 09:11 General appearance: Present: no acute distress, well-nourished - EENT Eyes: Present: PERRL, EOM intact ENT: hearing intact, clear oral mucosa, dentition normal - Neck Neck: Present: supple, normal ROM - Respiratory Respiratory effort: normal Respiratory: bilateral: CTA - Cardiovascular Rhythm: regular Heart Sounds: Present: S1 & S2. Absent: gallop, rub - Extremities Extremities: no ischemia, No edema, Full ROM - Abdominal General gastrointestinal: soft, non-tender, non-distended, normal bowel sounds - Integumentary Integumentary: Present: clear, warm, dry - Neurologic Neurologic: CNII-XII intact, moves all extremities Results - Labs CBC & Chem 7: 11/07/17 07:04 11/07/17 07:04 Labs: Laboratory Last Values WBC 7.1 K/mm3 (4.5-11.0) 11/07/17 07:04 RBC 4.32 M/mm3 (3.65-5.03) 11/07/17 07:04 Hgb 14.2 gm/dl (11.8-15.2) 11/07/17 07:04 Hct 42.3 % (35.5-45.6) 11/07/17 07:04 MCV 98 fl (84-94) H 11/07/17 07:04 MCH 33 pg (28-32) H 11/07/17 07:04 MCHC 34 % (32-34) 11/07/17 07:04 RDW 12.8 % (13.2-15.2) L 11/07/17 07:04 Plt Count 177 K/mm3 (140-440) 11/07/17 07:04 Lymph % (Auto) 17.5 % (13.4-35.0) 11/07/17 07:04 [place] % (Auto) 9.6 % (0.0-7.3) H 11/07/17 07:04 Eos % (Auto) 0.5 % (0.0-4.3) 11/07/17 07:04 Baso % (Auto) 0.3 % (0.0-1.8) 11/07/17 07:04 Lymph # 1.2 K/mm3 (1.2-5.4) 11/07/17 07:04 [place] # 0.7 K/mm3 (0.0-0.8) 11/07/17 07:04 Eos # 0.0 K/mm3 (0.0-0.4) 11/07/17 07:04 Baso # 0.0 K/mm3 (0.0-0.1) 11/07/17 07:04 Seg Neutrophils % 72.1 % (40.0-70.0) H 11/07/17 07:04 Seg Neutrophils # 5.1 K/mm3 (1.8-7.7) 11/07/17 07:04 POC ABG pH 7.274 (7.35-7.45) L 11/06/17 11:42 POC ABG pCO2 77.4 (35-45) H 11/06/17 11:42 POC ABG pO2 116 (80-105) H 11/06/17 11:42 POC ABG HCO3 35.9 11/06/17 11:42 POC ABG Total CO2 38 11/06/17 11:42 POC ABG O2 Sat 98 11/06/17 11:42 POC ABG Base Excess 9 11/06/17 11:42 FiO2 28 % 11/06/17 11:42 Sodium 142 mmol/L (137-145) 11/07/17 07:04 Potassium 4.1 mmol/L (3.6-5.0) D 11/07/17 07:04 Chloride 97.2 mmol/L (98-107) L 11/07/17 07:04 Carbon Dioxide 34 mmol/L (22-30) H 11/07/17 07:04 Anion Gap 15 mmol/L 11/07/17 07:04 BUN 11 mg/dL (9-20) 11/07/17 07:04 Creatinine 0.7 mg/dL (0.8-1.5) L 11/07/17 07:04 Estimated GFR > 60 ml/min 11/07/17 07:04 BUN/Creatinine Ratio 16 % 11/07/17 07:04 Glucose 117 mg/dL (75-100) H 11/07/17 07:04 Hemoglobin A1c 5.6 % (4-6) 11/06/17 23:01 Calcium 9.8 mg/dL (8.4-10.2) 11/07/17 07:04 Total Bilirubin 0.30 mg/dL (0.1-1.2) 11/07/17 07:04 AST 15 units/L (5-40) 11/07/17 07:04 ALT 12 units/L (7-56) 11/07/17 07:04 Alkaline Phosphatase 55 units/L (35-129) 11/07/17 07:04 Total Protein 6.7 g/dL (6.3-8.2) 11/07/17 07:04 Albumin 4.7 g/dL (3.9-5) 11/07/17 07:04 Albumin/Globulin Ratio 2.4 % 11/07/17 07:04
[2017-11-07] MEDS ORDERED: HABITROL TD ONE (16:50)
[2017-11-08] MEDS: DUONEB *Not for PRN Use IH SCH ×2 (01:41→10:38)
[2017-11-08 06:20] LABS: Basophils % (Auto) 0.2 % (0.0-1.8); Hemoglobin 13.7 gm/dl (11.8-15.2); Lymphocytes # (Auto) 0.5 K/mm3 (1.2-5.4); Lymphocytes % (Auto) 9.5 % (13.4-35.0); Mean Corpuscular HGB Conc 33 % (32-34); Mean Corpuscular Hemoglobin 32 pg (28-32); Mean Corpuscular Volume 96 fl (84-94); Monocytes # (Auto) 0.3 K/mm3 (0.0-0.8); Monocytes % (Auto) 5.9 % (0.0-7.3); Platelet Count 179 K/mm3 (140-440); Red Blood Count 4.25 M/mm3 (3.65-5.03); Red Cell Distribution Width 13.1 % (13.2-15.2)
[2017-11-08 06:49] LABS: BUN/Creatinine Ratio 20; Blood Urea Nitrogen 14 mg/dL (9-20); Calcium 9.4 mg/dL (8.4-10.2); Hemolysis Index 6
--- NOTE | 2017-11-08 09:11 | Discharge Summary ---
Providers - Providers Date of Admission: 11/06/17 13:47 Date of discharge: 11/08/17 Attending physician: BRIAN MCCANN Primary care physician: RAMSEY GEIGER MD Hospitalization Reason for admission: copd Condition: Fair Hospital course: This is a 57-year-old male with significant past medical history COPD, peripheral vascular disease and hypertension who presented with acute hyper Respiratory failure secondary to acute COPD exacerbation. Patient was treated with IV antibiotics, breathing treatments and IV steroids. Patient has significant improvement and return back to his baseline rest or status. Patient is on home oxygen and will be discharged with prescriptions for steroids by mouth antibiotics. Dedicated discharge time 32 minutes. Disposition: DC-01 TO HOME OR SELFCARE Time spent for discharge: 32 - Discharge Diagnoses (1) Acute hypercapnic respiratory failure Status: Acute (2) COPD exacerbation Status: Acute (3) Respiratory distress Status: Acute Core Measure Documentation - Palliative Care Palliative Care/ Comfort Measures: Not Applicable - Core Measures Any of the following diagnoses?: none Exam - Constitutional Vitals: Temp Pulse Resp BP Pulse Ox 98.6 F 85 18 126/72 94 11/08/17 07:56 11/08/17 07:56 11/08/17 07:56 11/08/17 07:56 11/08/17 07:56 General appearance: Present: no acute distress, well-nourished - EENT Eyes: Present: PERRL ENT: hearing intact, clear oral mucosa - Neck Neck: Present: supple, normal ROM - Respiratory Respiratory effort: normal Respiratory: bilateral: CTA - Cardiovascular Heart Sounds: Present: S1 & S2. Absent: rub, click - Extremities Extremities: pulses symmetrical, No edema Peripheral Pulses: within normal limits - Abdominal General gastrointestinal: Present: soft, non-tender, non-distended, normal bowel sounds Male genitourinary: Present: normal - Integumentary Integumentary: Present: clear, warm, dry - Musculoskeletal Musculoskeletal: gait normal, strength equal bilaterally - Psychiatric Psychiatric: appropriate mood/affect, intact judgment & insight - Neurologic Neurologic: CNII-XII intact, moves all extremities Plan Activity: no restrictions Weight Bearing Status: Full Weight Bearing Diet: regular Follow up with: PRIMARY CARE, [Primary Care Provider] - 3-5 Days Prescriptions: ALBUTEROL NEB's [Proventil 0.083% NEBS] 2.5 mg IH Q6H PRN #30 nebu PRN Reason: Wheezing Albuterol Sulfate [Proventil Hfa] 2 puff IH QID PRN #30 hfa.aer.ad PRN Reason: Shortness Of Breath Budesoni/Formotero 160-4.5(Nf) [Symbicort 160-4.5 (Nf)] 2 puff IH BID #30 inha Cilostazol [Pletal] 100 mg PO BID #60 tablet Levofloxacin [Levaquin TAB] 750 mg PO Q24HR #7 tablet methylPREDNISolone [Medrol] 4 mg PO QAM #1 tab.ds.pk Metoprolol [Lopressor TAB] 12.5 mg PO BID #60 tablet Nitroglycerin [Nitrostat] 0.4 mg SL Q5M PRN #30 tablet PRN Reason: Chest Pain Tiotropium [place] [Spiriva Respimat] 4 puff IH DAILY #30 mist.inhal
[2017-11-08] MEDS ORDERED: LEVAQUIN PO SCH (10:00)
[2017-11-08] MEDS: MUCINEX ER PO SCH (10:35)
[2017-11-08] MEDS: PLETAL PO SCH (10:35)
[2017-11-08] MEDS: HALFPRIN EC PO SCH (10:35)
[2017-11-08] MEDS: HEPARIN SUB-Q SCH (10:37)
[2017-11-08] MEDS: LOPRESSOR PO SCH (10:37)
[2017-11-08] MEDS: PULMICORT IH SCH (10:39)
[2017-11-08] MEDS: BROVANA NEBU IH SCH (10:39)
[2017-11-08 12:24] VITALS: BP 114/78
== END 2017-11-08 13:00 | disposition home or self-care (01) | DRG 189 ==
LOC: ED 09:46 → 4A 13:47
PROVIDERS: ADMIT Internal Medicine; ATTEND Hospitalist
PROC: 4A033R1 Measurement of Arterial Saturation, Peripheral, Percutaneous Approach (ICD-10-PCS; principal; 2017-11-06)
DX: J96.02 Acute respiratory failure with hypercapnia (principal); J44.1 Chronic obstructive pulmonary disease with (acute) exacerbation; I10 Essential (primary) hypertension; J96.01 Acute respiratory failure with hypoxia; I71.4 Abdominal aortic aneurysm, without rupture; I48.91 Unspecified atrial fibrillation; F17.210 Nicotine dependence, cigarettes, uncomplicated; I73.9 Peripheral vascular disease, unspecified; E87.5 Hyperkalemia; Z79.82 Long term (current) use of aspirin; Z79.899 Other long term (current) drug therapy; Z82.49 Family history of ischemic heart disease and other diseases of the circulatory system
CPT/HCPCS: 36415; 71046; 80048; 80053; 82803; 83036; 85025; 93005; 93010; 94640; 94760; J0610; J1644; J1956; J2920; J2930

== ENCOUNTER 2018-12-07 16:57 | Inpatient (IN) | payer MEDICAID ==
--- NOTE | 2018-12-07 17:49 | Emergency Department Report ---
ED Chest Pain HPI - General Chief Complaint: Dyspnea/Respdistress Stated Complaint: EH Time Seen by Provider: 12/07/18 17:27 Source: patient Mode of arrival: Ambulatory Limitations: No Limitations - History of Present Illness Initial Comments: 58 yo M with hx COPD presents to ED with complaint of right sided chest pain since yesterday. Pt thinks he may have pneumonia. Reports fever and chills, pleuritic pain on the right side, nausea and vomiting. Patient states he gave himself a breathing treatment prior to ED arrival. Called EMS for transport. Did not receive a neb treatment from them. Pt denies cough, leg pain or swelling. PCP/ Pulm: Shawn WEBSTER Complaint: chest pain -: days(s) (2) Onset: during rest Pain Location: right chest Pain Radiation: back Severity: moderate Quality: sharp Consistency: intermittent Improves With: nothing Worsens With: inspiration re: nausea, vomting Other Symptoms: fever. denies: cough, leg swelling - Related Data Home Medications Medication Instructions Recorded Confirmed Last Taken Acetaminophen [Acetaminophen TAB] 1,000 mg PO TID PRN 11/06/17 03/19/18 11/05/17 Aspirin [Adult Low Dose Aspirin EC] 81 mg PO DAILY 11/06/17 03/19/18 11/06/17 Previous Rx's Medication Instructions Recorded Last Taken Type traMADol [Ultram 50 MG tab] 50 mg PO Q6HR PRN #10 tablet 05/31/17 Unknown Rx ALBUTEROL NEB's [Proventil 0.083% 2.5 mg IH Q6H PRN #30 nebu 11/08/17 Unknown Rx NEBS] Albuterol Sulfate [Proventil Hfa] 2 puff IH QID PRN #30 hfa.aer.ad 11/08/17 Unknown Rx Budesoni/Formotero 160-4.5(Nf) 2 puff IH BID #30 inha 11/08/17 Unknown Rx [Symbicort 160-4.5 (Nf)] Cilostazol [Pletal] 100 mg PO BID #60 tablet 11/08/17 Unknown Rx Metoprolol [Lopressor TAB] 12.5 mg PO BID #60 tablet 11/08/17 Unknown Rx Nitroglycerin [Nitrostat] 0.4 mg SL Q5M PRN #30 tablet 11/08/17 Unknown Rx Tiotropium [place] [Spiriva 4 puff IH DAILY #30 mist.inhal 11/08/17 Unknown Rx Respimat] Azithromycin [Zithromax TAB] 500 mg PO QDAY #4 tablet 03/20/18 Unknown Rx Prednisone [predniSONE 5 mg (6-Day 5 mg PO .TAPER #1 tab.ds.pk 03/20/18 Unknown Rx Pack, 21 Tabs)] guaiFENesin ER [Mucinex ER] 600 mg PO BID #14 tablet 03/20/18 Unknown Rx Allergies Allergy/AdvReac Type Severity Reaction Status Date / Time No Known Allergies Allergy Verified 03/18/18 12:33 Heart Score - HEART Score History: Slightly suspicious EKG: Normal Age: 45-65 Risk factors: 1-2 risk factors Troponin: 1-3x normal limit HEART Score: 3 ED Review of Systems ROS: Stated complaint: EH Other details as noted in HPI Comment: All other systems reviewed and negative Constitutional: chills, fever Respiratory: shortness of breath. denies: cough Cardiovascular: chest pain Gastrointestinal: nausea, vomiting Musculoskeletal: other (denies leg pain or swelling) ED Past Medical Hx - Past Medical History Hx Hypertension: Yes Hx Congestive Heart Failure: No Hx Diabetes: No Hx Asthma: No (bronchitis) Hx COPD: Yes Additional medical history: A Fib. AAA - Surgical History Hx Appendectomy: Yes Additional Surgical History: murmur - Social History Smoking Status: Never Smoker Substance Use Type: None - Medications Home Medications: Home Medications Medication Instructions Recorded Confirmed Last Taken Type traMADol [Ultram 50 MG tab] 50 mg PO Q6HR PRN #10 tablet 05/31/17 03/19/18 Unknown Rx Acetaminophen [Acetaminophen TAB] 1,000 mg PO TID PRN 11/06/17 03/19/18 11/05/17 History Aspirin [Adult Low Dose Aspirin EC] 81 mg PO DAILY 11/06/17 03/19/18 11/06/17 History ALBUTEROL NEB's [Proventil 0.083% 2.5 mg IH Q6H PRN #30 nebu 11/08/17 03/19/18 Unknown Rx NEBS] Albuterol Sulfate [Proventil Hfa] 2 puff IH QID PRN #30 hfa.aer.ad 11/08/17 03/19/18 Unknown Rx Budesoni/Formotero 160-4.5(Nf) 2 puff IH BID #30 inha 11/08/17 03/19/18 Unknown Rx [Symbicort 160-4.5 (Nf)] Cilostazol [Pletal] 100 mg PO BID #60 tablet 11/08/17 03/19/18 Unknown Rx Metoprolol [Lopressor TAB] 12.5 mg PO BID #60 tablet 11/08/17 03/19/18 Unknown Rx Nitroglycerin [Nitrostat] 0.4 mg SL Q5M PRN #30 tablet 11/08/17 03/19/18 Unknown Rx Tiotropium [place] [Spiriva 4 puff IH DAILY #30 mist.inhal 11/08/17 03/19/18 Unknown Rx Respimat] Azithromycin [Zithromax TAB] 500 mg PO QDAY #4 tablet 03/20/18 Unknown Rx Prednisone [predniSONE 5 mg (6-Day 5 mg PO .TAPER #1 tab.ds.pk 03/20/18 Unknown Rx Pack, 21 Tabs)] guaiFENesin ER [Mucinex ER] 600 mg PO BID #14 tablet 03/20/18 Unknown Rx ED Physical Exam - General Limitations: No Limitations General appearance: alert, in no apparent distress - Head Head exam: Present: atraumatic, normocephalic - Eye Eye exam: Present: normal appearance, PERRL, EOMI - ENT ENT exam: Present: mucous membranes moist - Neck Neck exam: Present: normal inspection - Respiratory Respiratory exam: Present: normal lung sounds bilaterally. Absent: respiratory distress - Cardiovascular Cardiovascular Exam: Present: normal rhythm, tachycardia - GI/Abdominal GI/Abdominal exam: Present: soft. Absent: distended, tenderness - Extremities Exam Extremities exam: Present: normal inspection. Absent: pedal edema, calf tenderness - Neurological Exam Neurological exam: Present: alert, oriented X3 - Psychiatric Psychiatric exam: Present: normal affect, normal mood - Skin Skin exam: Present: warm, dry, intact, normal color ED Course Vital Signs 12/07/18 12/07/18 12/07/18 17:07 18:46 19:48 Temperature 98.5 F Pulse Rate 115 H 107 H Respiratory 16 16 Rate Blood Pressure 126/76 Blood Pressure 127/73 [Left] O2 Sat by Pulse 95 97 95 Oximetry 12/07/18 12/07/18 12/07/18 20:00 20:16 20:30 Temperature Pulse Rate Respiratory Rate Blood Pressure 131/75 131/75 131/75 Blood Pressure [Left] O2 Sat by Pulse 98 97 95 Oximetry 12/07/18 12/07/18 12/07/18 20:46 21:48 22:04 Temperature 100.1 F H Pulse Rate 103 H Respiratory Rate Blood Pressure 131/75 131/75 Blood Pressure [Left] O2 Sat by Pulse 96 92 Oximetry 12/07/18 12/07/18 12/07/18 22:16 22:30 22:46 Temperature Pulse Rate 137 H 135 H 125 H Respiratory 22 19 23 Rate Blood Pressure 143/81 114/74 112/74 Blood Pressure [Left] O2 Sat by Pulse 94 94 94 Oximetry 12/07/18 12/07/18 23:38 23:47 Temperature 99.7 F H Pulse Rate 126 H Respiratory 26 H Rate Blood Pressure 112/74 Blood Pressure [Left] O2 Sat by Pulse 93 Oximetry ED Medical Decision Making - Lab Data Result diagrams: 12/07/18 18:08 12/07/18 18:08 - EKG Data -: EKG Interpreted by [place] EKG shows normal: sinus rhythm, axis, intervals, QRS complexes, ST-T waves Rate: tachycardia (rate 109) - EKG Data Interpretation: no acute changes - Radiology Data Radiology results: report reviewed, image reviewed - Medical Decision Making 58 yo M w/ COPD presents to ED with right sided pleuritic chest pain x 1 day. Initially afebrile here in the ED. Mildly elevated WBCs at 13. CXR shows RUL infiltrate. Lactic acid normal. D-dimer elevated, so CTA Chest was obtained which was negative for PE. Pt given rocephin and azithromycin. Not hypoxic or in any resp distress. After being in the ED for several hours, pt then became tachycardic into the 120s-130s. Temp was checked and found to be 100.1, for which tylenol and 1L bolus IV fluids were given. Repeat temp was 99.7, however, pt remains tachycardic, so will admit to hospitalist for pneumonia and persistent tachycardia. - Differential Diagnosis PE, pneumonia, COPD, ACS Critical care attestation.: If time is entered above; I have spent that time in minutes in the direct care of this critically ill patient, excluding procedure time. ED Disposition Clinical Impression: Pneumonia, Tachycardia Disposition: DC- OP ADMIT IP TO THIS HOSP Is pt being admited?: Yes Condition: Stable Instructions: Bacterial Pneumonia (ED) Referrals: YAYO JOSE MD [Primary Care Provider] - 3-5 Days Time of Disposition: 23:41
--- NOTE | 2018-12-07 18:22 | XRay Report ---
CHEST 1 VIEW INDICATION: right chest pain. COMPARISON: 03/18/2018 FINDINGS: Support devices: None. Heart: Within normal limits. Lungs: Diffuse, chronic appearing interstitial disease. Focal parenchymal disease in the right upper lobe is very suggestive of pneumonia. Pleura: No significant pleural effusion. No pneumothorax. Additional findings: None. IMPRESSION: 1. Right upper lobe pneumonia. Signer Name: Gopal Ramos MD Signed: 12/07/2018 6:17 PM Workstation Name: [id number]
[2018-12-07 18:34] LABS: Basophils % (Auto) 0.3 % (0.0-1.8); Eosinophils % (Auto) 0.1 % (0.0-4.3); Hematocrit 41.9 % (35.5-45.6); Hemoglobin 13.8 gm/dl (11.8-15.2); Lymphocytes # (Auto) 0.9 K/mm3 (1.2-5.4); Lymphocytes % (Auto) 6.4 % (13.4-35.0); Mean Corpuscular HGB Conc 33 % (32-34); Mean Corpuscular Volume 93 fl (84-94); Monocytes # (Auto) 1.2 K/mm3 (0.0-0.8); Monocytes % (Auto) 9.3 % (0.0-7.3); Platelet Count 147 K/mm3 (140-440); Red Blood Count 4.51 M/mm3 (3.65-5.03); Red Cell Distribution Width 14.1 % (13.2-15.2)
[2018-12-07 18:45] LABS: INR 1.2 (0.87-1.13); Partial Thromboplastin Time 28.9 Sec. (24.2-36.6)
[2018-12-07 18:46] LABS: BUN/Creatinine Ratio 9; Blood Urea Nitrogen 9 mg/dL (9-20); Calcium 9.3 mg/dL (8.4-10.2); Hemolysis Index 1
[2018-12-07] MEDS ORDERED: ROCEPHIN/NS 1 GM/50 ML 1 GM/50 ML BAG IV ONE (21:48)
[2018-12-07] MEDS ORDERED: ZITHROMAX PO ONE (21:49)
[2018-12-07] MEDS ORDERED: TYLENOL PO ONE (21:49)
--- NOTE | 2018-12-07 22:03 | Cat Scan Report ---
CTA CHEST WITH IV CONTRAST INDICATION / CLINICAL INFORMATION: right chest pain, elevated d-dimer. TECHNIQUE: Axial CT images were obtained through the chest after injection of 100 mL Omnipaque 350 IV contrast. 3 plane MIP and/or 3D reconstructions were produced. All CT scans at this location are performed usin g CT dose reduction for ALARA by means of automated exposure control. COMPARISON: CT dated 12/27/16 FINDINGS: PULMONARY ARTERIES: No pulmonary emboli. THORACIC AORTA: Borderline ectasia of the ascending thoracic aorta measuring 4.0 cm in diameter. No c hange. No acute abnormality. HEART: No significant abnormality. CORONARY ARTERIES: Mild coronary artery calcification. PLEURA: No pleural effusion. No pneumothorax. LYMPH NODES: No significant adenopathy. LUNGS: Right upper lobe infiltrate likely representing pneumonia. Centrilobular pulmonary emphysema w ith prominence of interstitial lung markings which appear chronic. ADDITIONAL FINDINGS: None. UPPER ABDOMEN: No acute findings. SKELETAL STRUCTURES: No significant osseous abnormality. IMPRESSION: 1. No CT evidence for pulmonary embolism. 2. Right upper lobe pneumonia. 3. Emphysema with chronic interstitial lung disease. Signer Name: Marina Landa MD Signed: 12/07/2018 9:58 PM Workstation Name: [id number]
[2018-12-07] MEDS ORDERED: NACL 0.9% 1000 ML 1,000 ML IV ONE (22:06)
[2018-12-07] MEDS ORDERED: ZOFRAN ONE (22:33)
[2018-12-08] MEDS ORDERED: ZOFRAN IV PRN (00:30)
[2018-12-08] MEDS ORDERED: PROVENTIL IH PRN (00:31)
[2018-12-08] MEDS ORDERED: NITROSTAT SL PRN (00:37)
[2018-12-08] MEDS ORDERED: PREDNISONE 5 MG PO SCH (00:45)
[2018-12-08] MEDS ORDERED: ZOFRAN IV ONE (01:08)
--- NOTE | 2018-12-08 05:45 | History and Physical Report ---
CHIEF COMPLAINT: Fever. Other complaints include shortness of breath, chills, nausea and diarrhea. HISTORY OF PRESENT ILLNESS: The patient is a 58-year-old male who said he has been having fever going on for some days associated with chills and right-sided pleuritic chest pain. There was also history of nausea and diarrhea, but no vomiting. The patient denied history of cough and presented for evaluation. PAST MEDICAL HISTORY: Pertinent for hypertension, COPD on home O2, atrial fibrillation, abdominal aortic aneurysm. PAST SURGICAL HISTORY: Pertinent for appendectomy. FAMILY HISTORY: Reviewed and noncontributory. SOCIAL HISTORY: The patient does not smoke, does not drink alcohol and does not use illicit drugs. MEDICATIONS: The patient is on tramadol 50 mg by mouth every 6 hours, Tylenol 1000 mg by mouth 3 times daily, aspirin 81 mg daily, albuterol nebulizer 2.5 mg every 6 hours and also on albuterol inhaler 2 puffs q.i.d. The patient is also on Symbicort 160/4.5 two puffs by inhalation twice daily, cilostazol 100 mg by mouth twice daily. The patient is also on Lopressor 12.5 mg by mouth daily and Nitrostat 0.4 mg every 5 minutes as needed for chest pain. The patient is on Spiriva 4 puffs by inhalation daily and on Zithromax 500 mg by mouth daily. Also, the patient is on prednisone Dosepak 21 tablets, it is not certain whether the patient is still taking this medication and also the patient is on Mucinex or guaifenesin extended release 600 mg by mouth twice daily. ALLERGIES: There are no known drug allergies. REVIEW OF SYSTEMS: CONSTITUTIONAL: There is fever, there are chills, but no diaphoresis. HEENT: There is no headache or sore throat. CARDIOVASCULAR SYSTEM: There is right-sided pleuritic chest pain, but no orthopnea. RESPIRATORY SYSTEM: Shortness of breath is present. There is no cough. GASTROINTESTINAL SYSTEM: There is nausea, diarrhea, but no vomiting. There is no abdominal pain. NEUROLOGICAL SYSTEM: There is no numbness, no dizziness, no altered mental status. MUSCULOSKELETAL SYSTEM: There is no joint pain or swelling. DERMATOLOGICAL SYSTEM: There is no skin rash or itching. GENITOURINARY SYSTEM: There is no dysuria, hematuria, or flank pain. Rest of system review is normal. PHYSICAL EXAMINATION: GENERAL: At the time of exam, the patient was found to be alert, oriented x 3 and not in acute distress. VITAL SIGNS: At the initial time of presentation showed temperature of 98.5 degree Fahrenheit, pulse of 115, respirations 16, blood pressure 126/76, O2 sat of 95% on room air. HEENT: Showed pupils to be equal, round, reactive to light and accommodating. Extraocular muscles are intact. NECK: Supple with no JVD or carotid bruit. CARDIOVASCULAR SYSTEM: Showed normal first and second heart sounds with no gallops or murmurs. RESPIRATORY SYSTEM: Showed good air entry on both sides of the lungs with no abnormal breath sounds. GASTROINTESTINAL SYSTEM: Showed abdomen to be full, soft, nontender with no organomegaly or rigidity. NEUROLOGICAL: Exam shows no focal deficit. MUSCULOSKELETAL SYSTEM: Showed no joint swelling or tenderness. DERMATOLOGICAL SYSTEM: Showed no skin rash. GENITOURINARY SYSTEM: Showing no costovertebral angle tenderness. PERTINENT LABORATORY AND IMAGING STUDIES: The patient has CBC done with elevated white count and normal hemoglobin as well as normal hematocrit. CBC differential showed elevated segmented neutrophil count of 83.9%. The patient's chemistry showed low sodium of 136, low chloride of 95.2 and rest of chemistry was unremarkable including normal lactic acid. IMAGING STUDIES: The patient had chest x-ray done that shows right upper lobe pneumonia and also the patient has CT angiogram of the chest done that shows right upper lobe pneumonia, no PE. DIAGNOSIS: Right lung pneumonia. PLAN OF CARE: 1. The patient will be admitted to medical floor and will be on IV Zithromax 500 mg daily and IV Rocephin 1 gram daily. Also, the patient will be on DuoNeb q.i.d. and will be on Tylenol 650 mg by mouth every 4 hours for fever and headache and will be on IV Zofran 4 mg every 6 hours for nausea and vomiting. 2. The patient will be on his home medication as shown in the medication reconciliation section. JOB# [id number] OCN/NTS
[2018-12-08] MEDS: BROVANA NEBU IH SCH ×2 (07:28→20:06)
[2018-12-08] MEDS: PULMICORT IH SCH ×2 (07:28→20:06)
[2018-12-08] MEDS: ROBITUSSIN PO PRN (08:00)
[2018-12-08] MEDS: SPIRIVA IH SCH (08:10)
[2018-12-08] MEDS ORDERED: NON-FORMULARY (Budesoni/Formotero 160-4.5(Nf) 2 PUFF) IH SCH (10:00)
[2018-12-08] MEDS ORDERED: SPIRIVA IH SCH (10:00)
[2018-12-08] MEDS ORDERED: TIOTROPIUM BROMIDE IH SCH (10:00)
[2018-12-08] MEDS: ROCEPHIN/NS 1 GM/50 ML 1 GM/50 ML BAG IV SCH (10:42)
[2018-12-08] MEDS: HEPARIN SUB-Q SCH ×2 (10:43→22:42)
[2018-12-08] MEDS: PLETAL PO SCH ×2 (10:43→22:43)
[2018-12-08] MEDS: HALFPRIN EC PO SCH (10:44)
[2018-12-08] MEDS: LOPRESSOR PO SCH ×2 (10:46→22:42)
[2018-12-08] MEDS: ZITHROMAX 500 MG in NACL 0.9% 250ML 250 ML IV SCH (10:57)
[2018-12-08] MEDS: TYLENOL PO PRN (12:51)
[2018-12-08] MEDS: ZOFRAN IV PRN (12:55)
--- NOTE | 2018-12-08 16:37 | Event Note ---
Date: 12/08/18 Patient admitted this am. Imaging concerning for Right lobar Pneumonia. No pulmonary embolisim noted on CTA chest. Will continue abx and current therapy. May need additional fluids and check lactic acid level.
[2018-12-08] MEDS ORDERED: NACL 0.9% 1000 ML 1,000 ML IV ONE (17:00)
[2018-12-09] MEDS: BROVANA NEBU IH SCH ×2 (08:22→19:39)
[2018-12-09] MEDS: SPIRIVA IH SCH (08:22)
[2018-12-09] MEDS: PULMICORT IH SCH ×2 (08:22→19:39)
[2018-12-09] MEDS: ROCEPHIN/NS 1 GM/50 ML 1 GM/50 ML BAG IV SCH (12:11)
[2018-12-09] MEDS: PLETAL PO SCH ×2 (12:12→22:14)
[2018-12-09] MEDS: HALFPRIN EC PO SCH (12:13)
[2018-12-09] MEDS: LOPRESSOR PO SCH ×2 (12:17→22:14)
[2018-12-09] MEDS: HEPARIN SUB-Q SCH ×2 (12:31→22:14)
--- NOTE | 2018-12-09 12:56 | Progress Note ---
Assessment and Plan Assessment and plan: Patient is a a 58-year-old male with past medical history of COPD admitted with sepsis secondary to right lobar pneumonia. CTA: NO PE, BUT NOTED PNEUMONIA Sepsis secondary to Right lobar Pneumonia HTN COPD With mild exacerbation AFIB CHRONIC HYPOXIA AAA GERD PLAN Continue current abx regimen supportive care nebs scheduled and prn anti-tussinex may need chest pt if no improvement monitor additional 24 hrs and if no resolution will obtain ID consult cultures negative till date. dvt/gi prophy History Interval history: Patient has not examined this morning and reports improvement in symptoms although still with pleuritic chest discomfort. No overt effusion noted of the night. He still has cough with yellow phlegm production. Hospitalist Physical - Physical exam Narrative exam: VITAL SIGNS: Reviewed. GENERAL: The patient appears normally developed, Vital signs as documented. HEAD: No signs of head trauma. EYES: Pupils are equal. Extraocular motions intact. EARS: Hearing grossly intact. MOUTH: Oropharynx is normal. NECK: No adenopathy, no JVD. CHEST: Chest with diminished right lobar breath sounds . No wheezes, rales, or rhonchi. CARDIAC: Regular rate and rhythm. S1 and S2, without murmurs, gallops, or rubs. VASCULAR: No Edema. Peripheral pulses normal and equal in all extremities. ABDOMEN: Soft, non tender and non distended. No rebound or guarding, and no masses palpated. Bowel Sounds normal. MUSCULOSKELETAL: Good range of motion of all major joints. Extremities without clubbing, cyanosis or edema. NEUROLOGIC EXAM: Alert and oriented x 3 No focal sensory or strength deficits. Speech normal. Follows commands. PSYCHIATRIC: Mood normal. SKIN: detail exam as documented in skin assessment, warm to touch otherwise - Constitutional Vitals: Temp Pulse Resp BP Pulse Ox 98.6 F 103 H 20 106/67 95 12/09/18 11:41 12/09/18 11:41 12/09/18 11:41 12/09/18 11:41 12/09/18 11:41 Results - Labs CBC & Chem 7: 12/07/18 18:08 12/07/18 18:08 Labs: Laboratory Last Values WBC 13.3 K/mm3 (4.5-11.0) H 12/07/18 18:08 RBC 4.51 M/mm3 (3.65-5.03) 12/07/18 18:08 Hgb 13.8 gm/dl (11.8-15.2) 12/07/18 18:08 Hct 41.9 % (35.5-45.6) 12/07/18 18:08 MCV 93 fl (84-94) 12/07/18 18:08 MCH 31 pg (28-32) 12/07/18 18:08 MCHC 33 % (32-34) 12/07/18 18:08 RDW 14.1 % (13.2-15.2) 12/07/18 18:08 Plt Count 147 K/mm3 (140-440) 12/07/18 18:08 Lymph % (Auto) 6.4 % (13.4-35.0) L 12/07/18 18:08 [place] % (Auto) 9.3 % (0.0-7.3) H 12/07/18 18:08 Eos % (Auto) 0.1 % (0.0-4.3) 12/07/18 18:08 Baso % (Auto) 0.3 % (0.0-1.8) 12/07/18 18:08 Lymph # 0.9 K/mm3 (1.2-5.4) L 12/07/18 18:08 [place] # 1.2 K/mm3 (0.0-0.8) H 12/07/18 18:08 Eos # 0.0 K/mm3 (0.0-0.4) 12/07/18 18:08 Baso # 0.0 K/mm3 (0.0-0.1) 12/07/18 18:08 Seg Neutrophils % 83.9 % (40.0-70.0) H 12/07/18 18:08 Seg Neutrophils # 11.2 K/mm3 (1.8-7.7) H 12/07/18 18:08 PT 14.9 Sec. (12.2-14.9) 12/07/18 18:08 INR 1.20 (0.87-1.13) H 12/07/18 18:08 APTT 28.9 Sec. (24.2-36.6) 12/07/18 18:08 314.63 ng/mlDDU (0-234) H 12/07/18 18:08 Sodium 136 mmol/L (137-145) L 12/07/18 18:08 Potassium 4.7 mmol/L (3.6-5.0) 12/07/18 18:08 Chloride 95.2 mmol/L (98-107) L 12/07/18 18:08 Carbon Dioxide 31 mmol/L (22-30) H 12/07/18 18:08 15 mmol/L 12/07/18 18:08 BUN 9 mg/dL (9-20) 12/07/18 18:08 1.0 mg/dL (0.8-1.5) 12/07/18 18:08 Estimated GFR > 60 ml/min 12/07/18 18:08 9 % 12/07/18 18:08 Glucose 121 mg/dL (75-100) H 12/07/18 18:08 Lactic Acid 0.90 mmol/L (0.7-2.0) 12/07/18 19:54 Calcium 9.3 mg/dL (8.4-10.2) 12/07/18 18:08 0.022 ng/mL (0.00-0.029) 12/07/18 18:08 NT-Pro-B Natriuret Pep 316.9 pg/mL (0-900) 12/07/18 18:08 Active Medications - Current Medications Current Medications: Generic Name Dose Route Start Last Admin Trade Name Freq PRN Reason Stop Dose Admin Acetaminophen 650 mg 12/08/18 00:29 12/08/18 12:51 Tylenol PO 650 mg Q4H PRN Administration Fever >101 Albuterol 2.5 mg 12/08/18 00:31 Proventil IH Q6H PRN Shortness Of Breath Arformoterol Tartrate 15 mcg 12/08/18 08:00 12/09/18 08:22 Brovana Nebu IH 15 mcg Q12HRT JESSICA Administration Aspirin 81 mg 12/08/18 10:00 12/09/18 12:13 Halfprin Ec PO 81 mg DAILY JESSICA Administration Budesonide 1 mg 12/08/18 08:00 12/09/18 08:22 Pulmicort IH 1 mg Q12HRT JESSIAC Administration Cilostazol 100 mg 12/08/18 10:00 12/09/18 12:12 Pletal PO 100 mg BID JESSICA Administration Guaifenesin 200 mg 12/08/18 00:33 12/08/18 08:00 Robitussin PO 200 mg Q4H PRN Administration Cough Heparin Sodium (Porcine) 5,000 unit 12/08/18 10:00 12/09/18 12:31 Heparin SUB-Q 5,000 unit Q12HR JESSICA Administration Ceftriaxone Sodium 1 gm in 50 mls @ 100 mls/hr 12/08/18 10:00 12/09/18 12:11 Rocephin/Ns 1 Gm/50 Ml IV 100 mls/hr Q24HR JESSICA Administration Protocol Azithromycin 500 mg/ Sodium 250 mls @ 250 mls/hr 12/08/18 10:00 12/08/18 10:57 Chloride IV 12/12/18 10:59 250 mls/hr Q24HR JESSICA Administration Protocol Sodium Chloride 1,000 mls @ 999 mls/hr 12/09/18 13:00 Nacl 0.9% 1000 Ml IV 12/09/18 14:00 BOLUS ONE Metoprolol Tartrate 12.5 mg 12/08/18 10:00 12/09/18 12:17 Lopressor PO Not Given BID JESSICA Nitroglycerin 0.4 mg 12/08/18 00:37 Nitrostat SL Q5M PRN Chest Pain Ondansetron HCl 4 mg 12/08/18 09:01 12/08/18 12:55 Zofran IV 4 mg Q4H PRN Administration nausea and vomitng Pantoprazole Sodium 40 mg 12/09/18 13:00 Protonix IV QDAY [facility] Tiotropium [place] 1 puff 12/08/18 09:00 12/09/18 08:22 Spiriva IH 1 puff Q24HRT JESSICA Administration
[2018-12-09] MEDS ORDERED: NACL 0.9% 1000 ML 1,000 ML IV ONE (13:00)
[2018-12-09] MEDS: ZITHROMAX 500 MG in NACL 0.9% 250ML 250 ML IV SCH (14:09)
[2018-12-09] MEDS: PROTONIX IV SCH (14:09)
[2018-12-09] MEDS: ROBITUSSIN PO PRN (17:15)
[2018-12-09] MEDS: TYLENOL PO PRN (18:27)
[2018-12-10 05:58] LABS: Hematocrit 33.4 % (35.5-45.6); Hemoglobin 11.4 gm/dl (11.8-15.2); Mean Corpuscular HGB Conc 34 % (32-34); Mean Corpuscular Volume 92 fl (84-94); Platelet Count 151 K/mm3 (140-440); Red Blood Count 3.64 M/mm3 (3.65-5.03); Red Cell Distribution Width 13.7 % (13.2-15.2)
[2018-12-10 06:17] LABS: BUN/Creatinine Ratio 7; Blood Urea Nitrogen 5 mg/dL (9-20); Calcium 8.4 mg/dL (8.4-10.2); Hemolysis Index 6
[2018-12-10] MEDS: BROVANA NEBU IH SCH ×2 (07:57→21:02)
[2018-12-10] MEDS: PULMICORT IH SCH ×2 (07:57→21:02)
[2018-12-10] MEDS: SPIRIVA IH SCH (08:02)
[2018-12-10] MEDS: ROBITUSSIN PO PRN (08:42)
[2018-12-10] MEDS: ROCEPHIN/NS 1 GM/50 ML 1 GM/50 ML BAG IV SCH (11:08)
[2018-12-10] MEDS: LOPRESSOR PO SCH ×2 (11:09→22:02)
[2018-12-10] MEDS: HEPARIN SUB-Q SCH ×2 (11:09→22:03)
[2018-12-10] MEDS: HALFPRIN EC PO SCH (11:09)
[2018-12-10] MEDS: PROTONIX IV SCH (11:10)
[2018-12-10] MEDS: ZITHROMAX 500 MG in NACL 0.9% 250ML 250 ML IV SCH (12:08)
[2018-12-10] MEDS: ZOFRAN IV PRN (12:26)
[2018-12-10] MEDS: PLETAL PO SCH ×2 (14:03→22:02)
--- NOTE | 2018-12-10 17:06 | Progress Note ---
Assessment and Plan Assessment and plan: Patient is a a 58-year-old male with past medical history of COPD admitted with sepsis secondary to right lobar pneumonia. CTA: NO PE, BUT NOTED PNEUMONIA on RML Sepsis secondary to Right lobar Pneumonia HTN COPD With mild exacerbation AFIB CHRONIC HYPOXIA AAA GERD PLAN Continue current abx regimen supportive care, if no improvement in am, WILL NEED Pulmonary and ID consult cultures remain negative will obtain sputum culture and mycoplasma studies nebs scheduled and prn anti-tussinex chest PT monitor additional 24 hrs and if no resolution will obtain ID consult cultures negative till date. dvt/gi prophy History Interval history: Patient seen and examined this morning still with pleuritic chest discomfort. No overt effusion noted of the night. He still has cough with yellow phlegm production. Hospitalist Physical - Physical exam Narrative exam: VITAL SIGNS: Reviewed. GENERAL: The patient appears normally developed, Vital signs as documented. HEAD: No signs of head trauma. EYES: Pupils are equal. Extraocular motions intact. EARS: Hearing grossly intact. MOUTH: Oropharynx is normal. NECK: No adenopathy, no JVD. CHEST: Chest with diminished right lobar breath sounds . No wheezes, rales, or rhonchi. CARDIAC: Regular rate and rhythm. S1 and S2, without murmurs, gallops, or rubs. VASCULAR: No Edema. Peripheral pulses normal and equal in all extremities. ABDOMEN: Soft, non tender and non distended. No rebound or guarding, and no masses palpated. Bowel Sounds normal. MUSCULOSKELETAL: Good range of motion of all major joints. Extremities without clubbing, cyanosis or edema. NEUROLOGIC EXAM: Alert and oriented x 3 No focal sensory or strength deficits. Speech normal. Follows commands. PSYCHIATRIC: Mood normal. SKIN: detail exam as documented in skin assessment, warm to touch otherwise - Constitutional Vitals: Temp Pulse Resp BP Pulse Ox 98.5 F 109 H 18 104/67 96 12/10/18 12:32 12/10/18 12:32 12/10/18 12:32 12/10/18 12:32 12/10/18 12:32 Results - Labs CBC & Chem 7: 12/10/18 05:35 12/10/18 05:35 Labs: Laboratory Last Values WBC 6.3 K/mm3 (4.5-11.0) 12/10/18 05:35 RBC 3.64 M/mm3 (3.65-5.03) L 12/10/18 05:35 Hgb 11.4 gm/dl (11.8-15.2) L 12/10/18 05:35 Hct 33.4 % (35.5-45.6) L D 12/10/18 05:35 MCV 92 fl (84-94) 12/10/18 05:35 MCH 31 pg (28-32) 12/10/18 05:35 MCHC 34 % (32-34) 12/10/18 05:35 RDW 13.7 % (13.2-15.2) 12/10/18 05:35 Plt Count 151 K/mm3 (140-440) 12/10/18 05:35 Lymph % (Auto) 6.4 % (13.4-35.0) L 12/07/18 18:08 [place] % (Auto) 9.3 % (0.0-7.3) H 12/07/18 18:08 Eos % (Auto) 0.1 % (0.0-4.3) 12/07/18 18:08 Baso % (Auto) 0.3 % (0.0-1.8) 12/07/18 18:08 Lymph # 0.9 K/mm3 (1.2-5.4) L 12/07/18 18:08 [place] # 1.2 K/mm3 (0.0-0.8) H 12/07/18 18:08 Eos # 0.0 K/mm3 (0.0-0.4) 12/07/18 18:08 Baso # 0.0 K/mm3 (0.0-0.1) 12/07/18 18:08 Seg Neutrophils % 83.9 % (40.0-70.0) H 12/07/18 18:08 Seg Neutrophils # 11.2 K/mm3 (1.8-7.7) H 12/07/18 18:08 PT 14.9 Sec. (12.2-14.9) 12/07/18 18:08 INR 1.20 (0.87-1.13) H 12/07/18 18:08 APTT 28.9 Sec. (24.2-36.6) 12/07/18 18:08 314.63 ng/mlDDU (0-234) H 12/07/18 18:08 Sodium 137 mmol/L (137-145) 12/10/18 05:35 Potassium 4.3 mmol/L (3.6-5.0) 12/10/18 05:35 Chloride 96.5 mmol/L (98-107) L 12/10/18 05:35 Carbon Dioxide 31 mmol/L (22-30) H 12/10/18 05:35 14 mmol/L 12/10/18 05:35 BUN 5 mg/dL (9-20) L 12/10/18 05:35 0.7 mg/dL (0.8-1.5) L 12/10/18 05:35 Estimated GFR > 60 ml/min 12/10/18 05:35 7 % 12/10/18 05:35 Glucose 118 mg/dL (75-100) H 12/10/18 05:35 Lactic Acid 0.90 mmol/L (0.7-2.0) 12/07/18 19:54 Calcium 8.4 mg/dL (8.4-10.2) 12/10/18 05:35 0.022 ng/mL (0.00-0.029) 12/07/18 18:08 NT-Pro-B Natriuret Pep 316.9 pg/mL (0-900) 12/07/18 18:08 Active Medications - Current Medications Current Medications: Generic Name Dose Route Start Last Admin Trade Name Freq PRN Reason Stop Dose Admin Acetaminophen 650 mg 12/08/18 00:29 12/09/18 18:27 Tylenol PO 650 mg Q4H PRN Administration Fever >101 Albuterol 2.5 mg 12/08/18 00:31 Proventil IH Q6H PRN Shortness Of Breath Arformoterol Tartrate 15 mcg 12/08/18 08:00 12/10/18 07:57 Brovana Nebu IH 15 mcg Q12HRT JESSICA Administration Aspirin 81 mg 12/08/18 10:00 12/10/18 11:09 Halfprin Ec PO 81 mg DAILY JESSICA Administration Budesonide 0.5 mg 12/09/18 20:00 12/10/18 07:57 Pulmicort IH 0.5 mg Q12HRT JESSICA Administration Cilostazol 100 mg 12/08/18 10:00 12/10/18 14:03 Pletal PO 100 mg BID JESSICA Administration Guaifenesin 200 mg 12/08/18 00:33 12/10/18 08:42 Robitussin PO 200 mg Q4H PRN Administration Cough Heparin Sodium (Porcine) 5,000 unit 12/08/18 10:00 12/10/18 11:09 Heparin SUB-Q 5,000 unit Q12HR JESSICA Administration Ceftriaxone Sodium 1 gm in 50 mls @ 100 mls/hr 12/08/18 10:00 12/10/18 11:08 Rocephin/Ns 1 Gm/50 Ml IV 100 mls/hr Q24HR JESSICA Administration Protocol Azithromycin 500 mg/ Sodium 250 mls @ 250 mls/hr 12/08/18 10:00 12/10/18 12:08 Chloride IV 12/12/18 10:59 250 mls/hr Q24HR JESSICA Administration Protocol Metoprolol Tartrate 12.5 mg 12/08/18 10:00 12/10/18 11:09 Lopressor PO 12.5 mg BID JESSICA Administration Nitroglycerin 0.4 mg 12/08/18 00:37 Nitrostat SL Q5M PRN Chest Pain Ondansetron HCl 4 mg 12/08/18 09:01 12/10/18 12:26 Zofran IV 4 mg Q4H PRN Administration nausea and vomitng Pantoprazole Sodium 40 mg 12/09/18 13:00 12/10/18 11:10 Protonix IV 40 mg QDAY JESSICA Administration Tiotropium [place] 1 puff 12/08/18 09:00 12/10/18 08:02 Spiriva IH 1 puff Q24HRT JESSICA Administration
[2018-12-11] MEDS: PULMICORT IH SCH ×2 (07:30→19:43)
[2018-12-11] MEDS: SPIRIVA IH SCH ×2 (07:30→09:41)
[2018-12-11] MEDS: BROVANA NEBU IH SCH ×2 (07:30→19:43)
[2018-12-11] MEDS: PLETAL PO SCH ×2 (10:16→22:26)
[2018-12-11] MEDS: HALFPRIN EC PO SCH (10:16)
[2018-12-11] MEDS: HEPARIN SUB-Q SCH ×2 (10:16→22:27)
[2018-12-11] MEDS: ROCEPHIN/NS 1 GM/50 ML 1 GM/50 ML BAG IV SCH (10:16)
[2018-12-11] MEDS: LOPRESSOR PO SCH ×2 (10:17→22:27)
[2018-12-11] MEDS: PROTONIX IV SCH (10:26)
[2018-12-11] MEDS: ROBITUSSIN PO PRN ×2 (12:06→20:42)
[2018-12-11] MEDS: ZITHROMAX 500 MG in NACL 0.9% 250ML 250 ML IV SCH (12:08)
--- NOTE | 2018-12-11 12:21 | Progress Note ---
Assessment and Plan Assessment and plan: CTA: NO PE, BUT NOTED PNEUMONIA on RML --Sepsis secondary to Right lobar Pneumonia; Community-acquired pneumonia Continue Rocephin and Zithromax, supportive care Follow-up chest x-ray today, consider pulmonary consult --Acute exacerbation of COPD; oxygen, nebulizers, IV steroids IV antibiotics, inhalation steroids, supportive care --HTN ; moderate control, continue current antihypertensives and When necessary medications --Acute on chronic hypoxic respiratory failure; Multifactorial, secondary to COPD exacerbation, right-sided pneumonia Oxygen titrate O2 sats to more than 90%, nebulizers and antibiotic steroids --Gastroesophageal reflux disease; Protonix --DVT prophylaxis; Lovenox --Full CODE STATUS Monitor closely and adjust management as needed Follow up repeat chest x-ray, consider pulmonary evaluation if no improvement Plan of care reviewed with the patient and his nurse History Interval history: Patient is a a 58-year-old male with past medical history of COPD admitted with sepsis secondary to right lobar pneumonia., Patient is on IV Rocephin and Zithromax, patient continues to have shortness of breath,productive cough and wheezing Patient is alert awake oriented 3 Mild distress, Vital signs reviewed Hospitalist Physical - Constitutional Vitals: Temp Pulse Resp BP Pulse Ox 98.2 F 111 H 20 127/73 91 12/11/18 11:45 12/11/18 11:45 12/11/18 11:45 12/11/18 11:45 12/11/18 11:45 General appearance: Present: mild distress, well-nourished - EENT Eyes: Present: PERRL, EOM intact - Neck Neck: Present: supple, normal ROM - Respiratory Respiratory effort: normal Respiratory: bilateral: diminished, rhonchi, wheezing - Cardiovascular Rhythm: regular Heart Sounds: Present: S1 & S2 - Extremities Extremities: no ischemia, No edema - Abdominal General gastrointestinal: soft, non-tender, non-distended, normal bowel sounds - Integumentary Integumentary: Present: clear, warm - Psychiatric Psychiatric: appropriate mood/affect, cooperative - Neurologic Neurologic: CNII-XII intact, moves all extremities Results - Labs CBC & Chem 7: 12/10/18 05:35 12/10/18 05:35 Labs: Laboratory Last Values WBC 6.3 K/mm3 (4.5-11.0) 12/10/18 05:35 RBC 3.64 M/mm3 (3.65-5.03) L 12/10/18 05:35 Hgb 11.4 gm/dl (11.8-15.2) L 12/10/18 05:35 Hct 33.4 % (35.5-45.6) L D 12/10/18 05:35 MCV 92 fl (84-94) 12/10/18 05:35 MCH 31 pg (28-32) 12/10/18 05:35 MCHC 34 % (32-34) 12/10/18 05:35 RDW 13.7 % (13.2-15.2) 12/10/18 05:35 Plt Count 151 K/mm3 (140-440) 12/10/18 05:35 Lymph % (Auto) 6.4 % (13.4-35.0) L 12/07/18 18:08 [place] % (Auto) 9.3 % (0.0-7.3) H 12/07/18 18:08 Eos % (Auto) 0.1 % (0.0-4.3) 12/07/18 18:08 Baso % (Auto) 0.3 % (0.0-1.8) 12/07/18 18:08 Lymph # 0.9 K/mm3 (1.2-5.4) L 12/07/18 18:08 [place] # 1.2 K/mm3 (0.0-0.8) H 12/07/18 18:08 Eos # 0.0 K/mm3 (0.0-0.4) 12/07/18 18:08 Baso # 0.0 K/mm3 (0.0-0.1) 12/07/18 18:08 Seg Neutrophils % 83.9 % (40.0-70.0) H 12/07/18 18:08 Seg Neutrophils # 11.2 K/mm3 (1.8-7.7) H 12/07/18 18:08 PT 14.9 Sec. (12.2-14.9) 12/07/18 18:08 INR 1.20 (0.87-1.13) H 12/07/18 18:08 APTT 28.9 Sec. (24.2-36.6) 12/07/18 18:08 314.63 ng/mlDDU (0-234) H 12/07/18 18:08 Sodium 137 mmol/L (137-145) 12/10/18 05:35 Potassium 4.3 mmol/L (3.6-5.0) 12/10/18 05:35 Chloride 96.5 mmol/L (98-107) L 12/10/18 05:35 Carbon Dioxide 31 mmol/L (22-30) H 12/10/18 05:35 14 mmol/L 12/10/18 05:35 BUN 5 mg/dL (9-20) L 12/10/18 05:35 0.7 mg/dL (0.8-1.5) L 12/10/18 05:35 Estimated GFR > 60 ml/min 12/10/18 05:35 7 % 12/10/18 05:35 Glucose 118 mg/dL (75-100) H 12/10/18 05:35 POC Glucose 113 (70-105) H 12/11/18 07:36 Lactic Acid 0.90 mmol/L (0.7-2.0) 12/07/18 19:54 Calcium 8.4 mg/dL (8.4-10.2) 12/10/18 05:35 0.022 ng/mL (0.00-0.029) 12/07/18 18:08 NT-Pro-B Natriuret Pep 316.9 pg/mL (0-900) 12/07/18 18:08 Active Medications - Current Medications Current Medications: Generic Name Dose Route Start Last Admin Trade Name Freq PRN Reason Stop Dose Admin Acetaminophen 650 mg 12/08/18 00:29 12/09/18 18:27 Tylenol PO 650 mg Q4H PRN Administration Fever >101 Albuterol 2.5 mg 12/08/18 00:31 Proventil IH Q6H PRN Shortness Of Breath Arformoterol Tartrate 15 mcg 12/08/18 08:00 12/11/18 07:30 Brovana Nebu IH 15 mcg Q12HRT JESSICA Administration Aspirin 81 mg 12/08/18 10:00 12/11/18 10:16 Halfprin Ec PO 81 mg DAILY JESSICA Administration Budesonide 0.5 mg 12/09/18 20:00 12/11/18 07:30 Pulmicort IH 0.5 mg Q12HRT JESSICA Administration Cilostazol 100 mg 12/08/18 10:00 12/11/18 10:16 Pletal PO 100 mg BID JESSICA Administration Guaifenesin 200 mg 12/08/18 00:33 12/11/18 12:06 Robitussin PO 200 mg Q4H PRN Administration Cough Heparin Sodium (Porcine) 5,000 unit 12/08/18 10:00 12/11/18 10:16 Heparin SUB-Q 5,000 unit Q12HR [facility] Administration Ceftriaxone Sodium 1 gm in 50 mls @ 100 mls/hr 12/08/18 10:00 12/11/18 10:16 Rocephin/Ns 1 Gm/50 Ml IV 100 mls/hr Q24HR [facility] Administration Protocol Azithromycin 500 mg/ Sodium 250 mls @ 250 mls/hr 12/08/18 10:00 12/11/18 12:08 Chloride IV 12/12/18 10:59 250 mls/hr Q24HR [facility] Administration Protocol Metoprolol Tartrate 12.5 mg 12/08/18 10:00 12/11/18 10:17 Lopressor PO 12.5 mg BID JESSICA Administration Nitroglycerin 0.4 mg 12/08/18 00:37 Nitrostat SL Q5M PRN Chest Pain Ondansetron HCl 4 mg 12/08/18 09:01 12/10/18 12:26 Zofran IV 4 mg Q4H PRN Administration nausea and vomitng Pantoprazole Sodium 40 mg 12/09/18 13:00 12/11/18 10:26 Protonix IV 40 mg QDAY [facility] Administration Tiotropium [place] 1 puff 12/08/18 09:00 12/11/18 09:41 Spiriva IH Not Given Q24HRT [facility]
--- NOTE | 2018-12-11 12:28 | XRay Report ---
CHEST 2 VIEWS INDICATION / CLINICAL INFORMATION: Follow-up pneumonia. COMPARISON: 12/07/2018. FINDINGS: SUPPORT DEVICES: None. HEART / MEDIASTINUM: No significant abnormality. LUNGS / PLEURA: Patchy consolidation in the right upper and middle lobes has increased significantly. There is a minimal right pleural effusion which is new. The left lung is clear. No pneumothorax. ADDITIONAL FINDINGS: No significant additional findings. IMPRESSION: Increasing right upper and middle lobe pneumonia. Trace right pleural effusion. Signer Name: Bobo Keyes MD Signed: 12/11/2018 12:24 PM Workstation Name: [id number]
[2018-12-11] MEDS ORDERED: VANCOMYCIN/NS 1 GM/250 ML 1 GM/250 ML BAG IV SCH (19:00)
[2018-12-11] MEDS ORDERED: VANCOMYCIN 1,750 MG in NACL 0.9% 500 ML 500 ML IV ONE (19:00)
[2018-12-11] MEDS ORDERED: VANCOMYCIN PHARMACY TO DOSE IV SCH (19:00)
--- NOTE | 2018-12-11 19:25 | Consultation ---
History of Present Illness Consult date: 12/11/18 Reason for consult: dyspnea, cough, chest pain, COPD History of present illness: PULMONARY AND CRITICAL CARE CONSULTATION DR. ALEXIS CRAWFORD THANK YOU FOR ASKING US TO PARTICIPATE IN THE CARE OF THIS PATIENT. 58 yo M with hx COPD presents to ED with complaint of right sided chest pain since yesterday. Pt thinks he may have pneumonia. Reports fever and chills, pleuritic pain on the right side, nausea and vomiting. Patient states he gave himself a breathing treatment prior to ED arrival. Called EMS for transport. Did not receive a neb treatment from them. Pt denies cough, leg pain or s welling. Patient has heavy history of smoking. 2 packsx 45 years. Stopped smoking last march. Denies alcohol or drug abuse. Patient coughing up brown yellow sputum. On 3 litres o2. O2 saturation 94%. Chest xray right upper lobe infiltrate. Angio CT of chest No PE. Right upper lobe infiltrate. Changes of COPD. Past History Past Medical History: CAD, COPD, hypertension, other (PAD.) Medications and Allergies Allergies Allergy/AdvReac Type Severity Reaction Status Date / Time ciprofloxacin Allergy Rash Verified 12/09/18 16:13 Home Medications Medication Instructions Recorded Confirmed Last Taken Type traMADol [Ultram 50 MG tab] 50 mg PO Q6HR PRN #10 tablet 05/31/17 03/19/18 Unknown Rx Acetaminophen [Acetaminophen TAB] 1,000 mg PO TID PRN 11/06/17 03/19/18 11/05/17 History Aspirin [Adult Low Dose Aspirin EC] 81 mg PO DAILY 11/06/17 03/19/18 11/06/17 History ALBUTEROL NEB's [Proventil 0.083% 2.5 mg IH Q6H PRN #30 nebu 11/08/17 03/19/18 Unknown Rx NEBS] Albuterol Sulfate [Proventil Hfa] 2 puff IH QID PRN #30 hfa.aer.ad 11/08/17 03/19/18 Unknown Rx Budesoni/Formotero 160-4.5(Nf) 2 puff IH BID #30 inha 11/08/17 03/19/18 Unknown Rx [Symbicort 160-4.5 (Nf)] Cilostazol [Pletal] 100 mg PO BID #60 tablet 11/08/17 03/19/18 Unknown Rx Metoprolol [Lopressor TAB] 12.5 mg PO BID #60 tablet 11/08/17 03/19/18 Unknown Rx Nitroglycerin [Nitrostat] 0.4 mg SL Q5M PRN #30 tablet 11/08/17 03/19/18 Unknown Rx Tiotropium [place] [Spiriva 4 puff IH DAILY #30 mist.inhal 11/08/17 03/19/18 Unknown Rx Respimat] Azithromycin [Zithromax TAB] 500 mg PO QDAY #4 tablet 03/20/18 Unknown Rx Prednisone [predniSONE 5 mg (6-Day 5 mg PO .TAPER #1 tab.ds.pk 03/20/18 Unknown Rx Pack, 21 Tabs)] guaiFENesin ER [Mucinex ER] 600 mg PO BID #14 tablet 03/20/18 Unknown Rx Active Meds: Active Medications Acetaminophen (Tylenol) 650 mg PO Q4H PRN PRN Reason: Fever >101 Last Admin: 12/09/18 18:27 Dose: 650 mg Documented by: Albuterol (Proventil) 2.5 mg IH Q6H PRN PRN Reason: Shortness Of Breath Arformoterol Tartrate (Brovana Nebu) 15 mcg IH Q12HRT [facility] Last Admin: 12/11/18 07:30 Dose: 15 mcg Documented by: Aspirin (Halfprin Ec) 81 mg PO DAILY [facility] Last Admin: 12/11/18 10:16 Dose: 81 mg Documented by: Budesonide (Pulmicort) 0.5 mg IH Q12HRT [facility] Last Admin: 12/11/18 07:30 Dose: 0.5 mg Documented by: Cilostazol (Pletal) 100 mg PO BID [facility] Last Admin: 12/11/18 10:16 Dose: 100 mg Documented by: Guaifenesin (Robitussin) 200 mg PO Q4H PRN PRN Reason: Cough Last Admin: 12/11/18 12:06 Dose: 200 mg Documented by: Heparin Sodium (Porcine) (Heparin) 5,000 unit SUB-Q Q12HR [facility] Last Admin: 12/11/18 10:16 Dose: 5,000 unit Documented by: Cefepime HCl (Maxipime/Ns 1 Gm/100 Ml) 1 gm in 100 mls @ 200 mls/hr IV Q8HR [facility]; Protocol Vancomycin HCl 1,750 mg/ (Sodium Chloride) 535 mls @ 333.333 mls/hr IV ONCE ONE Stop: 12/11/18 20:36 Vancomycin HCl 1,250 mg/ (Sodium Chloride) 275 mls @ 166.667 mls/hr IV Q12H [facility] Metoprolol Tartrate (Lopressor) 12.5 mg PO BID [facility] Last Admin: 12/11/18 10:17 Dose: 12.5 mg Documented by: Nitroglycerin (Nitrostat) 0.4 mg SL Q5M PRN PRN Reason: Chest Pain Ondansetron HCl (Zofran) 4 mg IV Q4H PRN PRN Reason: nausea and vomitng Last Admin: 12/10/18 12:26 Dose: 4 mg Documented by: Pantoprazole Sodium (Protonix) 40 mg PO DAILY [facility] Tiotropium [place] (Spiriva) 1 puff IH Q24HRT [facility] Last Admin: 12/11/18 09:41 Dose: Not Given Documented by: Review of Systems All systems: negative Physical Examination Vital signs: Vital Signs Temp Pulse Resp BP Pulse Ox 98.5 F 115 H 16 126/76 95 12/07/18 17:07 12/07/18 17:07 12/07/18 17:07 12/07/18 17:07 12/07/18 17:07 General appearance: no acute distress, alert Eyes: non-icteric ENT: oropharynx moist Neck: supple, no JVD Ascultation: Right: rhonchi, Bilateral: diminished breath sounds Cardiovascular: regular rate and rhythm Gastrointestinal: normoactive bowel sounds, soft Integumentary: normal Extremities: no cyanosis, no edema Musculoskeletal: no deformities Gait: other (Patient resting in bed at this time.) normal mental status, non-focal exam, pupils equal and round, CN II-XII normal mood appropriate Results - Laboratory Findings CBC and BMP: 12/10/18 05:35 12/10/18 05:35 PT/INR, D-dimer PT 14.9 Sec. (12.2-14.9) 12/07/18 18:08 INR 1.20 (0.87-1.13) H 12/07/18 18:08 314.63 ng/mlDDU (0-234) H 12/07/18 18:08 Abnormal lab findings: Abnormal Labs 12/07/18 12/07/18 12/07/18 18:08 18:08 18:08 WBC 13.3 H RBC Hgb Hct Lymph % (Auto) 6.[address] [place] % (Auto) 9.3 H Lymph # 0.[address] [place] # 1.2 H Seg Neutrophils % 83.9 H Seg Neutrophils # 11.2 H INR 1.20 H D-Dimer 314.63 H Sodium 136 L Chloride 95.2 L Carbon Dioxide 31 H BUN Creatinine Glucose 121 H POC Glucose 12/10/18 12/10/18 12/11/18 05:35 05:35 07:36 WBC RBC 3.64 L Hgb 11.4 L Hct 33.4 L D Lymph % (Auto) [place] % (Auto) Lymph # [place] # Seg Neutrophils % Seg Neutrophils # INR D-Dimer Sodium Chloride 96.5 L Carbon Dioxide 31 H BUN 5 L Creatinine 0.7 L Glucose 118 H POC Glucose 113 H - Diagnostic Findings Chest x-ray: report reviewed (Right upper lobe pneumonia.), image reviewed CT scan - chest: report reviewed, image reviewed Additional studies: Angio CT of chest done 12/07/18 MPRESSION: 1. No CT evidence for pulmonary embolism. 2. Right upper lobe pneumonia. 3. Emphysema with chronic interstitial lung disease. Assessment and Plan 58 yo M with hx COPD presents to ED with complaint of right sided chest pain since yesterday. Pt thinks he may have pneumonia. Reports fever and chills, pleuritic pain on the right side, nausea and vomiting. Patient states he gave himself a breathing treatment prior to ED arrival. Called EMS for transport. Did not receive a neb treatment from them. Pt denies cough, leg pain or swelling. Patient has heavy history of smoking. 2 packsx 45 years. Stopped smoking last march. Denies alcohol or drug abuse. Patient coughing up brown yellow sputum. On 3 litres o2. O2 saturation 94%. Chest xray right upper lobe infiltrate. Angio CT of chest No PE. Right upper lobe infiltrate. Changes of COPD. - Patient Problems (1) Acute hypercapnic respiratory failure Current Visit: No Status: Acute Plan to address problem: O2 2 litres via nasal canula. Albuterol/atrovent aerosol treatments q 6 hours. Continue I/V solumedrol. Continue cefepime and vancomycin. Continue S/C Heparin. Continue Protonix. ABGs on room air. (2) COPD exacerbation Current Visit: No Status: Acute Plan to address problem: O2 2 litres via nasal canula. Albuterol/atrovent aerosol treatments q 6 hours. Continue I/V solumedrol. Continue cefepime and vancomycin. Continue S/C Heparin. Continue Protonix. ABGs on room air (3) Pneumonia Current Visit: Yes Status: Acute Qualifiers: Laterality: right Lung location: upper lobe of lung Plan to address problem: Patient is on cefepime and vancomycin. (4) CAD (coronary artery disease) Current Visit: No Status: Chronic Qualifiers: Coronary Disease-Associated Artery/Lesion type: [place] artery [place] vs. transplanted heart: [place] heart Plan to address problem: Management as per primary care and cardiology. (5) HTN (hypertension) Current Visit: No Status: Chronic Qualifiers: Hypertension type: essential hypertension Qualified Code(s): I10 - Essential (primary) hypertension Plan to address problem: Management as per primary care. (6) PAD (peripheral artery disease) Current Visit: No Status: Chronic Plan to address problem: Management as per primary care and vascular.
[2018-12-11] MEDS: TYLENOL PO PRN (20:41)
[2018-12-12 05:20] LABS: BUN/Creatinine Ratio 10; Blood Urea Nitrogen 6 mg/dL (9-20); Hemolysis Index 0
[2018-12-12] MEDS: TYLENOL PO PRN (06:48)
[2018-12-12] MEDS: ROBITUSSIN PO PRN (06:49)
[2018-12-12] MEDS: ZOFRAN IV PRN (06:51)
[2018-12-12] MEDS ORDERED: VANCOMYCIN 1,250 MG in NACL 0.9% 250ML 250 ML IV SCH (07:00)
[2018-12-12] MEDS: BROVANA NEBU IH SCH ×2 (08:49→19:37)
[2018-12-12] MEDS: PULMICORT IH SCH ×2 (08:49→19:37)
[2018-12-12] MEDS: SPIRIVA IH SCH (08:49)
--- NOTE | 2018-12-12 11:08 | Progress Note ---
Assessment and Plan Assessment and plan: --Sepsis secondary to worsening right-sided Pneumonia; Community-acquired ID adjusted antibiotics to Rocephin and Zyvox s/p Rocephin and Zithromax DC Cefepime and Vanco, follow cultures Pulmonary and ID consult noted and appreciated CTA: NO PE, BUT NOTED PNEUMONIA on RML Chest x-ray; 12/07/2018 Right upper lobe pneumonia F/U chest x-ray 12/11/2018 Increasing right upper and middle lobe pneumonia trace right pleural effusion --Acute exacerbation of COPD; oxygen, nebulizers, IV steroids IV antibiotics, inhalation steroids, supportive care --HTN ; moderate control, continue current antihypertensives and When necessary medications --Acute on chronic hypoxic respiratory failure; Multifactorial, secondary to COPD exacerbation, right-sided pneumonia Oxygen titrate O2 sats to more than 90%, nebulizers and antibiotic steroids --Gastroesophageal reflux disease; Protonix --DVT prophylaxis; Lovenox --Full CODE STATUS Monitor closely and adjust management as needed Continue inpatient care Plan of care reviewed with the patient his nurse discuss with ID History Interval history: Patient seen and examined medical records reviewed Patient feels slightly better however complains of cough Blood-tinged, mild shortness of breath Denies chest pain Denies nausea vomiting or abdominal pain Alert awake oriented 3 Vital signs noted Hospitalist Physical - Constitutional Vitals: Temp Pulse Resp BP Pulse Ox 98.2 F 103 H 18 123/82 96 12/12/18 05:23 12/12/18 08:49 12/12/18 08:49 12/12/18 05:23 12/12/18 08:51 General appearance: Present: mild distress, well-nourished - EENT Eyes: Present: PERRL, EOM intact - Neck Neck: Present: supple, normal ROM - Respiratory Respiratory effort: normal Respiratory: bilateral: diminished, rhonchi, wheezing, negative: rales - Cardiovascular Rhythm: regular Heart Sounds: Present: S1 & S2 - Extremities Extremities: no ischemia, No edema - Abdominal General gastrointestinal: soft, non-tender, non-distended, normal bowel sounds - Integumentary Integumentary: Present: clear, warm - Psychiatric Psychiatric: appropriate mood/affect, cooperative - Neurologic Neurologic: CNII-XII intact, moves all extremities Results - Labs CBC & Chem 7: 12/10/18 05:35 12/12/18 04:39 Labs: Laboratory Last Values WBC 6.3 K/mm3 (4.5-11.0) 12/10/18 05:35 RBC 3.64 M/mm3 (3.65-5.03) L 12/10/18 05:35 Hgb 11.4 gm/dl (11.8-15.2) L 12/10/18 05:35 Hct 33.4 % (35.5-45.6) L D 12/10/18 05:35 MCV 92 fl (84-94) 12/10/18 05:35 MCH 31 pg (28-32) 12/10/18 05:35 MCHC 34 % (32-34) 12/10/18 05:35 RDW 13.7 % (13.2-15.2) 12/10/18 05:35 Plt Count 151 K/mm3 (140-440) 12/10/18 05:35 Lymph % (Auto) 6.4 % (13.4-35.0) L 12/07/18 18:08 [place] % (Auto) 9.3 % (0.0-7.3) H 12/07/18 18:08 Eos % (Auto) 0.1 % (0.0-4.3) 12/07/18 18:08 Baso % (Auto) 0.3 % (0.0-1.8) 12/07/18 18:08 Lymph # 0.9 K/mm3 (1.2-5.4) L 12/07/18 18:08 [place] # 1.2 K/mm3 (0.0-0.8) H 12/07/18 18:08 Eos # 0.0 K/mm3 (0.0-0.4) 12/07/18 18:08 Baso # 0.0 K/mm3 (0.0-0.1) 12/07/18 18:08 Seg Neutrophils % 83.9 % (40.0-70.0) H 12/07/18 18:08 Seg Neutrophils # 11.2 K/mm3 (1.8-7.7) H 12/07/18 18:08 PT 14.9 Sec. (12.2-14.9) 12/07/18 18:08 INR 1.20 (0.87-1.13) H 12/07/18 18:08 APTT 28.9 Sec. (24.2-36.6) 12/07/18 18:08 314.63 ng/mlDDU (0-234) H 12/07/18 18:08 Sodium 141 mmol/L (137-145) 12/12/18 04:39 Potassium 4.3 mmol/L (3.6-5.0) 12/12/18 04:39 Chloride 97.3 mmol/L (98-107) L 12/12/18 04:39 Carbon Dioxide 36 mmol/L (22-30) H 12/12/18 04:39 12 mmol/L 12/12/18 04:39 BUN 6 mg/dL (9-20) L 12/12/18 04:39 0.6 mg/dL (0.8-1.5) L 12/12/18 04:39 Estimated GFR > 60 ml/min 12/12/18 04:39 10 % 12/12/18 04:39 Glucose 123 mg/dL (75-100) H 12/12/18 04:39 POC Glucose 113 (70-105) H 12/11/18 07:36 Lactic Acid 0.90 mmol/L (0.7-2.0) 12/07/18 19:54 Calcium 9.0 mg/dL (8.4-10.2) 12/12/18 04:39 0.022 ng/mL (0.00-0.029) 12/07/18 18:08 NT-Pro-B Natriuret Pep 316.9 pg/mL (0-900) 12/07/18 18:08 Active Medications - Current Medications Current Medications: Generic Name Dose Route Start Last Admin Trade Name Freq PRN Reason Stop Dose Admin Acetaminophen 650 mg 12/08/18 00:29 12/12/18 06:48 Tylenol PO 650 mg Q4H PRN Administration Fever >101 Albuterol 2.5 mg 12/08/18 00:31 Proventil IH Q6H PRN Shortness Of Breath Arformoterol Tartrate 15 mcg 12/08/18 08:00 12/12/18 08:49 Brovana Nebu IH 15 mcg Q12HRT [facility] Administration Aspirin 81 mg 12/08/18 10:00 12/11/18 10:16 Halfprin Ec PO 81 mg DAILY [facility] Administration Budesonide 0.5 mg 12/09/18 20:00 12/12/18 08:49 Pulmicort IH 0.5 mg Q12HRT [facility] Administration Cilostazol 100 mg 12/08/18 10:00 12/11/18 22:26 Pletal PO 100 mg BID [facility] Administration Guaifenesin 200 mg 12/08/18 00:33 12/12/18 06:49 Robitussin PO 200 mg Q4H PRN Administration Cough Heparin Sodium (Porcine) 5,000 unit 12/08/18 10:00 12/11/18 22:27 Heparin SUB-Q 5,000 unit Q12HR [facility] Administration Vancomycin HCl 1,250 mg/ 275 mls @ 166.667 mls/hr 12/12/18 07:00 Sodium Chloride IV Q12H [facility] Cefepime HCl 1 gm in 100 mls @ 200 mls/hr 12/12/18 12:00 Maxipime/Ns 1 Gm/100 Ml IV Q8HR [facility] Protocol Metoprolol Tartrate 12.5 mg 12/08/18 10:00 12/11/18 22:27 Lopressor PO 12.5 mg BID [facility] Administration Nitroglycerin 0.4 mg 12/08/18 00:37 Nitrostat SL Q5M PRN Chest Pain Ondansetron HCl 4 mg 12/08/18 09:01 12/12/18 06:51 Zofran IV 4 mg Q4H PRN Administration nausea and vomitng Pantoprazole Sodium 40 mg 12/12/18 10:00 Protonix PO DAILY [facility] Tiotropium [place] 1 puff 12/08/18 09:00 12/12/18 08:49 Spiriva IH 1 puff Q24HRT [facility] Administration
[2018-12-12] MEDS: HALFPRIN EC PO SCH (11:39)
[2018-12-12] MEDS: PLETAL PO SCH ×2 (11:39→22:36)
[2018-12-12] MEDS: PROTONIX PO SCH (11:39)
--- NOTE | 2018-12-12 11:39 | Consultation ---
History of Present Illness - Reason for Consult Consult date: 12/12/18 Worsening pneumonia Requesting physician: ALEXIS CRAWFORD - History of Present Illness The patient is a 58-year-old male with COPD who presented to the emergency room on 12/07/2018 with complaints of right-sided pleuritic chest pain." O week to 10 days prior to admission, he was having on and off worsening shortness of breath. 2 days prior to admission, he also started developing fever with chills and a right-sided pleuritic chest pain. He has been coughing up bloody sputum as well. He came to the ER, CT chest showed a right-sided pneumonia. He was started on empiric antibiotics: Ceftriaxone and azithromycin. Due to persistent symptoms, infectious diseases was consulted. Reports having some nausea today. States he quit smoking 9 months ago. He reports having received the pneumonia and flu vaccination during his previous hospitalization in March last year. Review of Systems: General: fever, chills + HEENT: no new visual disturbance Respiratory: + cough, sputum, hemoptysis and shortness of breath Cardiovascular: R pleuritic chest pain, no syncope Gastrointestinal: No nausea, vomiting or diarrhea Genitourinary: No dysuria or hematuria Musculoskeletal: No new or worsening neck pain or back pain Neurologic: No headaches, seizures Hematologic: No easy bruising or bleeding Endocrine: No night sweats or acute weight loss Skin: negative for rash, jaundice Psychiatric: No suicidal or homicidal ideation Past History Past Medical History: CAD, COPD, hypertension, other (PAD.) Medications and Allergies Allergies Allergy/AdvReac Type Severity Reaction Status Date / Time ciprofloxacin Allergy Rash Verified 12/09/18 16:13 Home Medications Medication Instructions Recorded Confirmed Last Taken Type traMADol [Ultram 50 MG tab] 50 mg PO Q6HR PRN #10 tablet 05/31/17 03/19/18 Unknown Rx Acetaminophen [Acetaminophen TAB] 1,000 mg PO TID PRN 11/06/17 03/19/18 11/05/17 History Aspirin [Adult Low Dose Aspirin EC] 81 mg PO DAILY 11/06/17 03/19/18 11/06/17 History ALBUTEROL NEB's [Proventil 0.083% 2.5 mg IH Q6H PRN #30 nebu 11/08/17 03/19/18 Unknown Rx NEBS] Albuterol Sulfate [Proventil Hfa] 2 puff IH QID PRN #30 hfa.aer.ad 11/08/17 03/19/18 Unknown Rx Budesoni/Formotero 160-4.5(Nf) 2 puff IH BID #30 inha 11/08/17 03/19/18 Unknown Rx [Symbicort 160-4.5 (Nf)] Cilostazol [Pletal] 100 mg PO BID #60 tablet 11/08/17 03/19/18 Unknown Rx Metoprolol [Lopressor TAB] 12.5 mg PO BID #60 tablet 11/08/17 03/19/18 Unknown Rx Nitroglycerin [Nitrostat] 0.4 mg SL Q5M PRN #30 tablet 11/08/17 03/19/18 Unknown Rx Tiotropium [place] [Spiriva 4 puff IH DAILY #30 mist.inhal 11/08/17 03/19/18 Unknown Rx Respimat] Azithromycin [Zithromax TAB] 500 mg PO QDAY #4 tablet 03/20/18 Unknown Rx Prednisone [predniSONE 5 mg (6-Day 5 mg PO .TAPER #1 tab.ds.pk 03/20/18 Unknown Rx Pack, 21 Tabs)] guaiFENesin ER [Mucinex ER] 600 mg PO BID #14 tablet 03/20/18 Unknown Rx Active Meds: Active Medications Acetaminophen (Tylenol) 650 mg PO Q4H PRN PRN Reason: Fever >101 Last Admin: 12/12/18 06:48 Dose: 650 mg Documented by: Albuterol (Proventil) 2.5 mg IH Q6H PRN PRN Reason: Shortness Of Breath Arformoterol Tartrate (Brovana Nebu) 15 mcg IH Q12HRT [facility] Last Admin: 12/12/18 08:49 Dose: 15 mcg Documented by: Aspirin (Halfprin Ec) 81 mg PO DAILY [facility] Last Admin: 12/11/18 10:16 Dose: 81 mg Documented by: Budesonide (Pulmicort) 0.5 mg IH Q12HRT [facility] Last Admin: 12/12/18 08:49 Dose: 0.5 mg Documented by: Cilostazol (Pletal) 100 mg PO BID [facility] Last Admin: 12/11/18 22:26 Dose: 100 mg Documented by: Guaifenesin (Robitussin) 200 mg PO Q4H PRN PRN Reason: Cough Last Admin: 12/12/18 06:49 Dose: 200 mg Documented by: Heparin Sodium (Porcine) (Heparin) 5,000 unit SUB-Q Q12HR [facility] Last Admin: 12/11/18 22:27 Dose: 5,000 unit Documented by: Vancomycin HCl 1,250 mg/ (Sodium Chloride) 275 mls @ 166.667 mls/hr IV Q12H [facility] Cefepime HCl (Maxipime/Ns 1 Gm/100 Ml) 1 gm in 100 mls @ 200 mls/hr IV Q8HR [facility]; Protocol Methylprednisolone Sodium Succinate (Solu-Medrol) 40 mg IV Q8HR [facility] Metoprolol Tartrate (Lopressor) 12.5 mg PO BID [facility] Last Admin: 12/11/18 22:27 Dose: 12.5 mg Documented by: Nitroglycerin (Nitrostat) 0.4 mg SL Q5M PRN PRN Reason: Chest Pain Ondansetron HCl (Zofran) 4 mg IV Q4H PRN PRN Reason: nausea and vomitng Last Admin: 12/12/18 06:51 Dose: 4 mg Documented by: Pantoprazole Sodium (Protonix) 40 mg PO DAILY [facility] Tiotropium [place] (Spiriva) 1 puff IH Q24HRT [facility] Last Admin: 12/12/18 08:49 Dose: 1 puff Documented by: Physical Examination - Physical Exam Narrative exam: Physical Exam: Constitutional: Alert, cooperative. No acute distress Head, Ears, Nose: Normocephalic, atraumatic. External ears, nose normal Eyes: Conjunctivae/corneas clear. No icterus. No ptosis. Neck: Supple, no meningeal signs Oral: no thrush Cardiovascular: S1, S2 normal. Respiratory: Right-sided crackles, bilateral diffuse wheezing present GI: Soft, non-tender; bowel sounds normal. No peritoneal signs Musculoskeletal: No pedal edema, no cyanosis. Skin: No rash or abscess Hem/Lymphatic: No palpable cervical or supraclavicular nodes. No lymphangitis Psych: Mood ok. Affect normal Neurological: Awake, alert, oriented. No gross abnormality - Constitutional Vitals: Vital Signs Temp Pulse Resp BP Pulse Ox 98.2 F 103 H 18 123/82 96 12/12/18 05:23 12/12/18 08:49 12/12/18 08:49 12/12/18 05:23 12/12/18 08:51 Temperature -Last 24 Hours Temperature 98.2 F Temperature 98.7 F Temperature 98.2 F Temperature 98.2 F Results - Labs CBC & Chem 7: 12/10/18 05:35 12/12/18 04:39 Labs: Abnormal lab results 12/12/18 Range/Units 04:39 Chloride 97.3 L (98-107) mmol/L Carbon Dioxide 36 H (22-30) mmol/L BUN 6 L (9-20) mg/dL Creatinine 0.6 L (0.8-1.5) mg/dL Glucose 123 H (75-100) mg/dL - Imaging and Cardiology Chest x-ray: report reviewed, image reviewed (R sided pneumonia) CT scan - chest: report reviewed, image reviewed (extensive emphysematous changes, right-sided infiltrate present) Assessment and Plan Cultures: 12/08/2018 blood culture: No growth 12/08/2018 MRSA nasal culture: Negative A/P: 58-year-old male with COPD admitted with: 1) Right-sided pneumonia with acute respiratory failure and COPD exacerbation: Gradual improvement in symptoms. Fever and leukocytosis have resolved. Given expectoration of bloody sputum, continue staph aureus coverage. Sputum culture results are available. Recs: Started IV ceftriaxone 2 g every 24 hours daily Started PO linezolid 600 mg twice a day Follow-up sputum culture Continue treatment of COPD exacerbation d/w Dr. Crawford. Pantera Perez MD, FACP [facility] C: [phone] O: [phone] F: [phone]
[2018-12-12] MEDS: HEPARIN SUB-Q SCH ×2 (11:40→22:37)
[2018-12-12] MEDS ORDERED: MAXIPIME/NS 1 GM/100 ML 1 GM/100 ML BAG IV SCH ×2 (12:00→19:30)
[2018-12-12 13:25] LABS: ABG Base Excess 7.2 mmol/L (-2.0-3.0); ABG Methemoglobin 0.6 % (0.0-1.5); ABG Oxygen Saturation 94.4 % (95.0-99.0); ABG PCO2 58.2 mm Hg; ABG PH 7.384 pH Units (7.350-7.450); ABG PO2 65.3 mm Hg (80.0-90.0)
[2018-12-12] MEDS: ROCEPHIN/NS 2 GM/100 ML 2 GM/100 ML BAG IV SCH (14:04)
[2018-12-12] MEDS: ZYVOX PO SCH ×2 (14:10→22:36)
[2018-12-12] MEDS: SOLU-Medrol IV SCH ×2 (14:10→22:44)
[2018-12-12] MEDS: LOPRESSOR PO SCH ×2 (14:11→22:37)
--- NOTE | 2018-12-12 14:22 | Progress Note ---
Assessment and Plan Patient awake. Still complaining shortness of breath. On 3 litres o2. O2 saturation 96%. Patient afebrile. No leukocytosis. Repeating chest xray . Solumedrol added. Patient is on Zyvox and Ceftrioxone. - Patient Problems (1) Acute hypercapnic respiratory failure Current Visit: No Status: Acute Plan to address problem: O2 3 litres via nasal canula. Albuterol/atrovent aerosol treatments q 6 hours. Continue I/V solumedrol. Continue ceftrioxone and Zyvox. Continue S/C Heparin. Continue Protonix. (2) COPD exacerbation Current Visit: No Status: Acute Plan to address problem: O2 3 litres via nasal canula. Albuterol/atrovent aerosol treatments q 6 hours. Continue I/V solumedrol. Continue ceftioxone and Zyvox. Continue S/C Heparin. Continue Protonix. (3) Pneumonia Current Visit: Yes Status: Acute Qualifiers: Laterality: right Lung location: upper lobe of lung Plan to address problem: Patient is on cefTrioxone and Zyvox. (4) CAD (coronary artery disease) Current Visit: No Status: Chronic Qualifiers: Coronary Disease-Associated Artery/Lesion type: [place] artery [place] vs. transplanted heart: [place] heart Plan to address problem: Management as per primary care and cardiology. (5) HTN (hypertension) Current Visit: No Status: Chronic Qualifiers: Hypertension type: essential hypertension Qualified Code(s): I10 - Essential (primary) hypertension Plan to address problem: Management as per primary care. (6) PAD (peripheral artery disease) Current Visit: No Status: Chronic Plan to address problem: Management as per primary care and vascular. Subjective Date of service: 12/12/18 Interval history: Patient awake. Still complaining shortness of breath. On 3 litres o2. O2 saturation 96%. Patient afebrile. No leukocytosis. Repeating chest xray . Solumedrol added. Patient is on Zyvox and Ceftrioxone. Objective Vital Signs - 12hr 12/12/18 12/12/18 12/12/18 05:23 06:48 08:49 Temperature 98.2 F Pulse Rate 106 H Pulse Rate [ 103 H Posterior Bilateral Throughout] Respiratory 20 22 Rate Respiratory 18 Rate [Posterior Bilateral Throughout] Blood Pressure 123/82 O2 Sat by Pulse 92 Oximetry 12/12/18 08:51 Temperature Pulse Rate Pulse Rate [ Posterior Bilateral Throughout] Respiratory Rate Respiratory Rate [Posterior Bilateral Throughout] Blood Pressure O2 Sat by Pulse 96 Oximetry Constitutional: no acute distress, alert Eyes: non-icteric ENT: oropharynx moist Neck: supple, no JVD Ascultation: Right: rhonchi, Bilateral: diminished breath sounds Cardiovascular: regular rate and rhythm Gastrointestinal: normoactive bowel sounds, soft Integumentary: normal Extremities: no cyanosis, no edema Neurologic: normal mental status, non-focal exam, pupils equal and round, CN II- XII normal Psychiatric: mood appropriate CBC and BMP: 12/10/18 05:35 12/12/18 04:39 ABG, PT/INR, D-dimer: ABG ABG pH 7.384 pH Units (7.350-7.450) 12/12/18 Unknown ABG pCO2 58.2 mm Hg 12/12/18 Unknown ABG pO2 65.3 mm Hg (80.0-90.0) L 12/12/18 Unknown ABG O2 Saturation 94.4 % (95.0-99.0) L 12/12/18 Unknown PT/INR, D-dimer PT 14.9 Sec. (12.2-14.9) 12/07/18 18:08 INR 1.20 (0.87-1.13) H 12/07/18 18:08 314.63 ng/mlDDU (0-234) H 12/07/18 18:08 Abnormal lab findings: Abnormal Labs 12/07/18 12/07/18 12/07/18 18:08 18:08 18:08 WBC 13.3 H RBC Hgb Hct Lymph % (Auto) 6.4 L [place] % (Auto) 9.3 H Lymph # 0.9 L [place] # 1.2 H Seg Neutrophils % 83.9 H Seg Neutrophils # 11.2 H INR 1.20 H D-Dimer 314.63 H ABG pO2 ABG HCO3 ABG O2 Saturation ABG Base Excess ABG Hemoglobin Oxyhemoglobin Sodium 136 L Chloride 95.2 L Carbon Dioxide 31 H BUN Creatinine Glucose 121 H POC Glucose 12/10/18 12/10/18 12/11/18 05:35 05:35 07:36 WBC RBC 3.64 L Hgb 11.4 L Hct 33.4 L D Lymph % (Auto) [place] % (Auto) Lymph # [place] # Seg Neutrophils % Seg Neutrophils # INR D-Dimer ABG pO2 ABG HCO3 ABG O2 Saturation ABG Base Excess ABG Hemoglobin Oxyhemoglobin Sodium Chloride 96.5 L Carbon Dioxide 31 H BUN 5 L Creatinine 0.7 L Glucose 118 H POC Glucose 113 H 12/12/18 12/12/18 04:39 Unknown WBC RBC Hgb Hct Lymph % (Auto) [place] % (Auto) Lymph # [place] # Seg Neutrophils % Seg Neutrophils # INR D-Dimer ABG pO2 65.3 L ABG HCO3 34.0 H ABG O2 Saturation 94.4 L ABG Base Excess 7.2 H ABG Hemoglobin 12.7 L Oxyhemoglobin 92.3 L Sodium Chloride 97.3 L Carbon Dioxide 36 H BUN 6 L Creatinine 0.6 L Glucose 123 H POC Glucose
[2018-12-13] MEDS: SOLU-Medrol IV SCH ×3 (05:59→21:49)
[2018-12-13] MEDS: BROVANA NEBU IH SCH ×2 (07:31→21:29)
[2018-12-13] MEDS: PULMICORT IH SCH ×2 (07:31→21:29)
--- NOTE | 2018-12-13 08:25 | XRay Report ---
CHEST 2 VIEWS INDICATION: Follow up on pneumonia. COMPARISON: 12/11/2018 FINDINGS: Support devices: None. Heart: Within normal limits. Lungs/pleura: Right upper lobe infiltrate has decreased by 25% since 12/11/2018. The remainder of the lungs are clear. Underlying emphysema is again noted. No pleural effusion or pneumothorax. The bony thorax is intact. Additional findings: None. IMPRESSION: 25% decrease in the right upper lobe pneumonia since the exam 2 days ago. Signer Name: Rakan Farah Jr, MD Signed: 12/13/2018 8:21 AM Workstation Name: [id number]
[2018-12-13] MEDS: SPIRIVA IH SCH (08:32)
--- NOTE | 2018-12-13 09:03 | Progress Note ---
Assessment and Plan Cultures: 12/08/2018 blood culture: No growth 12/08/2018 MRSA nasal culture: Negative 12/08/2018 sputum: in progress A/P: 58-year-old male with COPD admitted with: 1) Right-sided pneumonia with acute respiratory failure and COPD exacerbation: Gradual improvement in symptoms. Fever and leukocytosis have resolved. Given expectoration of bloody sputum, continue staph aureus coverage. Sputum culture results are available. Repeat CXR shows 25% decrease in the right upper lobe pneumonia. Recs: Continue IV ceftriaxone 2 g every 24 hours daily, D2 Continue PO linezolid 600 mg twice a da, D2 Follow-up sputum culture Continue treatment of COPD exacerbation [facility] M: [phone] O:[phone] Subjective Date of service: 12/13/18 Interval history: Patient seen and examined. Sitting on the side of bed with increased SOB. No fevers. Objective - Exam Narrative Exam: Constitutional: Alert, cooperative. Mild respiratory distress Head, Ears, Nose: Normocephalic, atraumatic. External ears, nose normal Eyes: Conjunctivae/corneas clear. No icterus. No ptosis. Neck: Supple, no meningeal signs Oral: no thrush Cardiovascular: S1, S2 normal. Respiratory: Right-sided crackles, bilateral diffuse wheezing present GI: Soft, non-tender; bowel sounds normal. No peritoneal signs Musculoskeletal: No pedal edema, no cyanosis. Skin: No rash or abscess Hem/Lymphatic: No palpable cervical or supraclavicular nodes. No lymphangitis Psych: Mood ok. Affect normal Neurological: Awake, alert, oriented. No gross abnormality - Constitutional Vitals: Vital Signs Temp Pulse Resp BP Pulse Ox 98.7 F 91 H 18 109/75 95 12/13/18 06:33 12/13/18 07:32 12/13/18 07:32 12/13/18 06:33 12/13/18 07:33 Temperature -Last 24 Hours Temperature 98.7 F Temperature 97.8 F Temperature 98.7 F - Labs CBC & Chem 7: 12/10/18 05:35 12/12/18 04:39 Labs: Abnormal lab results 12/12/18 Range/Units Unknown ABG pO2 65.3 L (80.0-90.0) mm Hg ABG HCO3 34.0 H (20.0-26.0) mmol/L ABG O2 Saturation 94.4 L (95.0-99.0) % ABG Base Excess 7.2 H (-2.0-3.0) mmol/L ABG Hemoglobin 12.7 L (14.0-18.0) gm/dl Oxyhemoglobin 92.3 L (95.0-99.0) %
[2018-12-13] MEDS: HALFPRIN EC PO SCH (09:08)
[2018-12-13] MEDS: ZYVOX PO SCH ×2 (09:08→21:49)
[2018-12-13] MEDS: PROTONIX PO SCH (09:09)
[2018-12-13] MEDS: LOPRESSOR PO SCH ×2 (09:09→21:48)
[2018-12-13] MEDS: PLETAL PO SCH ×2 (09:10→21:48)
[2018-12-13] MEDS: ROCEPHIN/NS 2 GM/100 ML 2 GM/100 ML BAG IV SCH (09:10)
[2018-12-13] MEDS: HEPARIN SUB-Q SCH ×2 (09:11→21:49)
[2018-12-13] MEDS: ROBITUSSIN PO PRN (09:27)
--- NOTE | 2018-12-13 09:36 | Progress Note ---
Assessment and Plan (1) Acute hypercapnic respiratory failure Current Visit: No Status: Acute Plan to address problem: O2 3 litres via nasal canula. Albuterol/atrovent aerosol treatments q 6 hours. Continue I/V solumedrol. Continue ceftrioxone and Zyvox. Continue S/C Heparin. Continue Protonix. (2) COPD exacerbation Current Visit: No Status: Acute Plan to address problem: O2 3 litres via nasal canula. Albuterol/atrovent aerosol treatments q 6 hours. Continue I/V solumedrol. Continue ceftioxone and Zyvox. Continue S/C Heparin. Continue Protonix. (3) Pneumonia Current Visit: Yes Status: Acute Qualifiers: Laterality: right Lung location: upper lobe of lung Plan to address problem: Patient is on cefTrioxone and Zyvox. (4) CAD (coronary artery disease) Current Visit: No Status: Chronic Qualifiers: Coronary Disease-Associated Artery/Lesion type: [place] artery [place] vs. transplanted heart: [place] heart Plan to address problem: Management as per primary care and cardiology. (5) HTN (hypertension) Current Visit: No Status: Chronic Qualifiers: Hypertension type: essential hypertension Qualified Code(s): I10 - Essen tial (primary) hypertension Plan to address problem: Management as per primary care. (6) PAD (peripheral artery disease) Current Visit: No Status: Chronic Plan to address problem: Management as per primary care and vascular. Subjective Date of service: 12/13/18 Interval history: Patient is seen today for: Seen and examined at bedside; 24hour events reviewed; nursing and respiratory care staff consulted; no adverse overnight events reported to me; Objective Vital Signs - 12hr 12/12/18 12/13/18 12/13/18 22:37 00:04 06:33 Temperature 98.7 F Pulse Rate 114 H 96 H 91 H Pulse Rate [ Posterior Bilateral Throughout] Respiratory 19 18 Rate Respiratory Rate [Posterior Bilateral Throughout] Blood Pressure 134/77 119/74 109/75 O2 Sat by Pulse 96 95 Oximetry 12/13/18 12/13/18 12/13/18 07:32 07:33 09:09 Temperature Pulse Rate 91 H Pulse Rate [ 91 H Posterior Bilateral Throughout] Respiratory Rate Respiratory 18 Rate [Posterior Bilateral Throughout] Blood Pressure O2 Sat by Pulse 95 Oximetry Constitutional: no acute distress, alert Eyes: non-icteric ENT: oropharynx moist Neck: supple, no JVD Ascultation: Right: rhonchi, Bilateral: diminished breath sounds Cardiovascular: regular rate and rhythm Gastrointestinal: normoactive bowel sounds, soft Integumentary: normal Extremities: no cyanosis, no edema Neurologic: normal mental status, non-focal exam, pupils equal and round, CN II- XII normal Psychiatric: mood appropriate CBC and BMP: 12/10/18 05:35 12/12/18 04:39 ABG, PT/INR, D-dimer: ABG ABG pH 7.384 pH Units (7.350-7.450) 12/12/18 Unknown ABG pCO2 58.2 mm Hg 12/12/18 Unknown ABG pO2 65.3 mm Hg (80.0-90.0) L 12/12/18 Unknown ABG O2 Saturation 94.4 % (95.0-99.0) L 12/12/18 Unknown PT/INR, D-dimer PT 14.9 Sec. (12.2-14.9) 12/07/18 18:08 INR 1.20 (0.87-1.13) H 12/07/18 18:08 314.63 ng/mlDDU (0-234) H 12/07/18 18:08 Abnormal lab findings: Abnormal Labs 12/07/18 12/07/18 12/07/18 18:08 18:08 18:08 WBC 13.3 H RBC Hgb Hct Lymph % (Auto) 6.4 L [place] % (Auto) 9.3 H Lymph # 0.9 L [place] # 1.2 H Seg Neutrophils % 83.9 H Seg Neutrophils # 11.2 H INR 1.20 H D-Dimer 314.63 H ABG pO2 ABG HCO3 ABG O2 Saturation ABG Base Excess ABG Hemoglobin Oxyhemoglobin Sodium 136 L Chloride 95.2 L Carbon Dioxide 31 H BUN Creatinine Glucose 121 H POC Glucose 12/10/18 12/10/18 12/11/18 05:35 05:35 07:36 WBC RBC 3.64 L Hgb 11.4 L Hct 33.4 L D Lymph % (Auto) [place] % (Auto) Lymph # [place] # Seg Neutrophils % Seg Neutrophils # INR D-Dimer ABG pO2 ABG HCO3 ABG O2 Saturation ABG Base Excess ABG Hemoglobin Oxyhemoglobin Sodium Chloride 96.5 L Carbon Dioxide 31 H BUN 5 L Creatinine 0.7 L Glucose 118 H POC Glucose 113 H 12/12/18 12/12/18 04:39 Unknown WBC RBC Hgb Hct Lymph % (Auto) [place] % (Auto) Lymph # [place] # Seg Neutrophils % Seg Neutrophils # INR D-Dimer ABG pO2 65.3 L ABG HCO3 34.0 H ABG O2 Saturation 94.4 L ABG Base Excess 7.2 H ABG Hemoglobin 12.7 L Oxyhemoglobin 92.3 L Sodium Chloride 97.3 L Carbon Dioxide 36 H BUN 6 L Creatinine 0.6 L Glucose 123 H POC Glucose
--- NOTE | 2018-12-13 09:39 | Progress Note ---
Assessment and Plan Assessment and plan: --Sepsis secondary to worsening right-sided Pneumonia; Community-acquired , and feels slightly better ID adjusted antibiotics to Rocephin and Zyvox s/p Rocephin and Zithromax ID pulmonary evaluation and recommendations noted and appreciated CTA: NO PE, BUT NOTED PNEUMONIA on RML Chest x-ray; 12/07/2018 Right upper lobe pneumonia F/U chest x-ray 12/11/2018 Increasing right upper and middle lobe pneumonia trace right pleural effusion F/U Chest x-ray; 12/13/2018; 25% decrease in the right upper lobe pneumonia since 12/11/2018 --Acute exacerbation of COPD; oxygen, nebulizers, IV steroids IV antibiotics, inhalation steroids, supportive care --HTN ; moderate control, continue current antihypertensives and When necessary medications --Acute on chronic hypoxic respiratory failure; Multifactorial, secondary to COPD exacerbation, right-sided pneumonia Oxygen titrate O2 sats to more than 90%, nebulizers and antibiotic steroids --Gastroesophageal reflux disease; Protonix --DVT prophylaxis; Lovenox --Full CODE STATUS Monitor closely and adjust management as needed Continue inpatient care Plan of care reviewed with the patient his nurse discuss with ID and pulmonary Disposition; discharged in 1-2 days on oral antibiotics per ID and pulmonology History Interval history: Patient seen and examined medical records reviewed Patient feels slightly better continues to have mild cough and shortness of breath Significantly improved since last 2 days Alert awake oriented Vital signs noted, afebrile Hospitalist Physical - Constitutional Vitals: Temp Pulse Resp BP Pulse Ox 98.7 F 91 H 18 109/75 95 12/13/18 06:33 12/13/18 09:09 12/13/18 07:32 12/13/18 06:33 12/13/18 07:33 General appearance: Present: no acute distress, well-nourished - EENT Eyes: Present: PERRL, EOM intact - Neck Neck: Present: supple, normal ROM - Respiratory Respiratory effort: normal Respiratory: right: diminished, rhonchi, bilateral: wheezing, negative: rales - Cardiovascular Rhythm: regular Heart Sounds: Present: S1 & S2 - Extremities Extremities: no ischemia, pulses intact - Abdominal General gastrointestinal: soft, non-tender, non-distended, normal bowel sounds - Integumentary Integumentary: Present: clear, warm - Psychiatric Psychiatric: appropriate mood/affect, cooperative - Neurologic Neurologic: CNII-XII intact, moves all extremities Results - Labs CBC & Chem 7: 12/10/18 05:35 12/12/18 04:39 Labs: Laboratory Last Values WBC 6.3 K/mm3 (4.5-11.0) 12/10/18 05:35 RBC 3.64 M/mm3 (3.65-5.03) L 12/10/18 05:35 Hgb 11.4 gm/dl (11.8-15.2) L 12/10/18 05:35 Hct 33.4 % (35.5-45.6) L D 12/10/18 05:35 MCV 92 fl (84-94) 12/10/18 05:35 MCH 31 pg (28-32) 12/10/18 05:35 MCHC 34 % (32-34) 12/10/18 05:35 RDW 13.7 % (13.2-15.2) 12/10/18 05:35 Plt Count 151 K/mm3 (140-440) 12/10/18 05:35 Lymph % (Auto) 6.4 % (13.4-35.0) L 12/07/18 18:08 [place] % (Auto) 9.3 % (0.0-7.3) H 12/07/18 18:08 Eos % (Auto) 0.1 % (0.0-4.3) 12/07/18 18:08 Baso % (Auto) 0.3 % (0.0-1.8) 12/07/18 18:08 Lymph # 0.9 K/mm3 (1.2-5.4) L 12/07/18 18:08 [place] # 1.2 K/mm3 (0.0-0.8) H 12/07/18 18:08 Eos # 0.0 K/mm3 (0.0-0.4) 12/07/18 18:08 Baso # 0.0 K/mm3 (0.0-0.1) 12/07/18 18:08 Seg Neutrophils % 83.9 % (40.0-70.0) H 12/07/18 18:08 Seg Neutrophils # 11.2 K/mm3 (1.8-7.7) H 12/07/18 18:08 PT 14.9 Sec. (12.2-14.9) 12/07/18 18:08 INR 1.20 (0.87-1.13) H 12/07/18 18:08 APTT 28.9 Sec. (24.2-36.6) 12/07/18 18:08 314.63 ng/mlDDU (0-234) H 12/07/18 18:08 ABG pH 7.384 pH Units (7.350-7.450) 12/12/18 Unknown ABG pCO2 58.2 mm Hg 12/12/18 Unknown ABG pO2 65.3 mm Hg (80.0-90.0) L 12/12/18 Unknown ABG HCO3 34.0 mmol/L (20.0-26.0) H 12/12/18 Unknown ABG O2 Saturation 94.4 % (95.0-99.0) L 12/12/18 Unknown ABG O2 Content 16.5 (0.0-44) 12/12/18 Unknown ABG Base Excess 7.2 mmol/L (-2.0-3.0) H 12/12/18 Unknown ABG Hemoglobin 12.7 gm/dl (14.0-18.0) L 12/12/18 Unknown ABG Carboxyhemoglobin 1.6 % (0.0-5.0) 12/12/18 Unknown ABG Methemoglobin 0.6 % (0.0-1.5) 12/12/18 Unknown 92.3 % (95.0-99.0) L 12/12/18 Unknown 21 % 12/12/18 Unknown Sodium 141 mmol/L (137-145) 12/12/18 04:39 Potassium 4.3 mmol/L (3.6-5.0) 12/12/18 04:39 Chloride 97.3 mmol/L (98-107) L 12/12/18 04:39 Carbon Dioxide 36 mmol/L (22-30) H 12/12/18 04:39 12 mmol/L 12/12/18 04:39 BUN 6 mg/dL (9-20) L 12/12/18 04:39 0.6 mg/dL (0.8-1.5) L 12/12/18 04:39 Estimated GFR > 60 ml/min 12/12/18 04:39 10 % 12/12/18 04:39 Glucose 123 mg/dL (75-100) H 12/12/18 04:39 POC Glucose 113 (70-105) H 12/11/18 07:36 Lactic Acid 0.90 mmol/L (0.7-2.0) 12/07/18 19:54 Calcium 9.0 mg/dL (8.4-10.2) 12/12/18 04:39 0.022 ng/mL (0.00-0.029) 12/07/18 18:08 NT-Pro-B Natriuret Pep 316.9 pg/mL (0-900) 12/07/18 18:08 Urine Legionella Ag Not detected (Not Detected) 12/09/18 Unknown Active Medications - Current Medications Current Medications: Generic Name Dose Route Start Last Admin Trade Name Freq PRN Reason Stop Dose Admin Acetaminophen 650 mg 12/08/18 00:29 12/12/18 06:48 Tylenol PO 650 mg Q4H PRN Administration Fever >101 Albuterol 2.5 mg 12/08/18 00:31 Proventil IH Q6H PRN Shortness Of Breath Arformoterol Tartrate 15 mcg 12/08/18 08:00 12/13/18 07:31 Brovana Nebu IH 15 mcg Q12HRT JESSICA Administration Aspirin 81 mg 12/08/18 10:00 12/13/18 09:08 Halfprin Ec PO 81 mg DAILY JESSICA Administration Budesonide 0.5 mg 12/09/18 20:00 12/13/18 07:31 Pulmicort IH 0.5 mg Q12HRT JESSICA Administration Cilostazol 100 mg 12/08/18 10:00 12/13/18 09:10 Pletal PO 100 mg BID JESSICA Administration Guaifenesin 200 mg 12/08/18 00:33 12/13/18 09:27 Robitussin PO 200 mg Q4H PRN Administration Cough Heparin Sodium (Porcine) 5,000 unit 12/08/18 10:00 12/13/18 09:11 Heparin SUB-Q 5,000 unit Q12HR JESSICA Administration Ceftriaxone Sodium 2 gm in 100 mls @ 200 mls/hr 12/12/18 13:00 12/13/18 09:10 Rocephin/Ns 2 Gm/100 Ml IV 200 mls/hr Q24HR JESSICA Administration Protocol Linezolid 600 mg 12/12/18 13:00 12/13/18 09:08 Zyvox PO 600 mg Q12HR JESSICA Administration Protocol Methylprednisolone Sodium Succinate 40 mg 12/12/18 14:00 12/13/18 05:59 Solu-Medrol IV 40 mg Q8HR JESSICA Administration Metoprolol Tartrate 12.5 mg 12/08/18 10:00 12/13/18 09:09 Lopressor PO 12.5 mg BID JESSICA Administration Nitroglycerin 0.4 mg 12/08/18 00:37 Nitrostat SL Q5M PRN Chest Pain Ondansetron HCl 4 mg 12/08/18 09:01 12/12/18 06:51 Zofran IV 4 mg Q4H PRN Administration nausea and vomitng Pantoprazole Sodium 40 mg 12/12/18 10:00 12/13/18 09:09 Protonix PO 40 mg DAILY JESSICA Administration Tiotropium [place] 1 puff 12/08/18 09:00 12/13/18 08:32 Spiriva IH 1 puff Q24HRT JESSICA Administration
[2018-12-13] MEDS: TYLENOL PO PRN (14:43)
[2018-12-14] MEDS: SOLU-Medrol IV SCH ×3 (05:10→22:30)
--- NOTE | 2018-12-14 08:08 | Progress Note ---
Assessment and Plan Cultures: 12/08/2018 blood culture: No growth 12/08/2018 MRSA nasal culture: Negative 12/08/2018 sputum: no growth to date A/P: 58-year-old male with COPD admitted with: 1) Right-sided pneumonia with acute respiratory failure and COPD exacerbation: Gradual improvement in symptoms. Fever and leukocytosis have resolved. Given expectoration of bloody sputum, continue staph aureus coverage. Repeat CXR shows 25% decrease in the right upper lobe pneumonia. 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 Please call for questions. Elke Bond NP [facility] M: [phone] O:[phone] Subjective Date of service: 12/14/18 Interval history: Patient seen and examined. Improved respiratory symptoms. On 3L 02. No fevers. Objective - Exam Narrative Exam: Constitutional: Alert, cooperative. No acute distress Head, Ears, Nose: Normocephalic, atraumatic. External ears, nose normal Eyes: Conjunctivae/corneas clear. No icterus. No ptosis. Neck: Supple, no meningeal signs Oral: no thrush Cardiovascular: S1, S2 normal. Respiratory: Right-sided crackles, bilateral diffuse wheezing present. 02 3L GI: Soft, non-tender; bowel sounds normal. No peritoneal signs Musculoskeletal: No pedal edema, no cyanosis. Skin: No rash or abscess Hem/Lymphatic: No palpable cervical or supraclavicular nodes. No lymphangitis Psych: Mood ok. Affect normal Neurological: Awake, alert, oriented. No gross abnormality - Constitutional Vitals: Vital Signs Temp Pulse Resp BP Pulse Ox 98.0 F 101 H 20 127/86 93 12/14/18 04:50 12/14/18 04:50 12/14/18 04:50 12/14/18 04:50 12/14/18 04:50 Temperature -Last 24 Hours Temperature 98.0 F Temperature 98.2 F Temperature 98.2 F Temperature 98.1 F - Labs CBC & Chem 7: 12/10/18 05:35 12/12/18 04:39
[2018-12-14] MEDS: ROBITUSSIN PO PRN (08:14)
[2018-12-14] MEDS: BROVANA NEBU IH SCH ×2 (08:41→20:28)
[2018-12-14] MEDS: PULMICORT IH SCH ×2 (08:41→20:28)
[2018-12-14] MEDS: SPIRIVA IH SCH (08:42)
[2018-12-14] MEDS: HALFPRIN EC PO SCH (10:37)
[2018-12-14] MEDS: LOPRESSOR PO SCH ×2 (10:37→22:31)
[2018-12-14] MEDS: ROCEPHIN/NS 2 GM/100 ML 2 GM/100 ML BAG IV SCH (10:37)
[2018-12-14] MEDS: ZYVOX PO SCH (10:37)
[2018-12-14] MEDS: PROTONIX PO SCH (10:39)
[2018-12-14] MEDS: PLETAL PO SCH ×2 (10:39→22:31)
[2018-12-14] MEDS: HEPARIN SUB-Q SCH ×2 (10:40→22:32)
--- NOTE | 2018-12-14 12:53 | Progress Note ---
Assessment and Plan /Sepsis secondary to worsening right-sided Pneumonia; Community-acquired , and feels slightly better ID adjusted antibiotics to Rocephin and Zyvox s/p Rocephin and Zithromax ID pulmonary evaluation and recommendations noted and appreciated /-Acute exacerbation of COPD; oxygen, nebulizers, IV steroids IV antibiotics, inhalation steroids, supportive care /-HTN ; moderate control, continue current antihypertensives and When necessary medications /-Acute on chronic hypoxic respiratory failure; pt on home O2 Multifactorial, secondary to COPD exacerbation, right-sided pneumonia Oxygen titrate O2 sats to more than 90%, nebulizers and antibiotic steroids /-Gastroesophageal reflux disease; Protonix /-DVT prophylaxis; Lovenox /Full CODE STATUS Monitor closely and adjust management as needed Consulted PT Plan of care reviewed with the patient his nurse discuss with ID and pulmonary Disposition; discharged in 1-2 days on oral antibiotics per ID and pulmonology once PT clears Brief History The patient is a 58-year-old male with COPD who presented to the emergency room on 12/07/2018 with complaints of right-sided pleuritic chest pain." with on and off worsening shortness of breath. CT chest showed a right-sided pneumonia. He was started on empiric antibiotics: Ceftriaxone and azithromycin. Due to persistent symptoms, infectious diseases was consulted. PT consulted for physical debility. CTA: NO PE, BUT NOTED PNEUMONIA on RML Chest x-ray; 12/07/2018 Right upper lobe pneumonia F/U chest x-ray 12/11/2018 Increasing right upper and middle lobe pneumonia trace right pleural effusion F/U Chest x-ray; 12/13/2018; 25% decrease in the right upper lobe pneumonia since 12/11/2018 Hospitalist Physical General appearance: Present: no acute distress, well-nourished - EENT Eyes: Present: PERRL, EOM intact - Neck Neck: Present: supple, normal ROM - Respiratory Respiratory effort: normal Respiratory: right: diminished, rhonchi, bilateral: wheezing, negative: rales - Cardiovascular Rhythm: regular Heart Sounds: Present: S1 & S2 - Extremities Extremities: no ischemia, pulses intact - Abdominal General gastrointestinal: soft, non-tender, non-distended, normal bowel sounds - Integumentary Integumentary: Present: clear, warm - Psychiatric Psychiatric: appropriate mood/affect, cooperative - Neurologic Neurologic: CNII-XII intact, moves all extremities Subjective Date of service: 12/14/18 Interval history: Patient seen and examined medical records reviewed Patient feels slightly better but states that feels very weak to even walk continues to have mild cough and shortness of breath Alert awake oriented Vital signs noted, afebrile Objective - Constitutional Vitals: Vital Signs - 12hr 12/14/18 12/14/18 12/14/18 04:50 07:41 08:41 Temperature 98.0 F Pulse Rate 101 H Pulse Rate [ 96 H Anterior Bilateral Throughout] Respiratory 20 Rate Respiratory 20 Rate [Anterior Bilateral Throughout] Blood Pressure 127/86 O2 Sat by Pulse 93 96 Oximetry 12/14/18 12/14/18 12/14/18 10:00 10:37 11:29 Temperature 98.1 F Pulse Rate 101 H 97 H Pulse Rate [ Anterior Bilateral Throughout] Respiratory 22 Rate Respiratory Rate [Anterior Bilateral Throughout] Blood Pressure 127/86 147/80 O2 Sat by Pulse 101 H 94 Oximetry - Labs CBC & Chem 7: 12/10/18 05:35 12/12/18 04:39
--- NOTE | 2018-12-14 13:44 | Progress Note ---
Assessment and Plan (1) Acute hypercapnic respiratory failure Current Visit: No Status: Acute Plan to address problem: O2 3 litres via nasal canula. Albuterol/atrovent aerosol treatments q 6 hours. Continue I/V solumedrol. Continue ceftrioxone and Zyvox. Continue S/C Heparin. Continue Protonix. (2) COPD exacerbation Current Visit: No Status: Acute Plan to address problem: O2 3 litres via nasal canula. Albuterol/atrovent aerosol treatments q 6 hours. Continue I/V solumedrol. Continue ceftioxone and Zyvox. Continue S/C Heparin. Continue Protonix. (3) Pneumonia Current Visit: Yes Status: Acute Qualifiers: Laterality: right Lung location: upper lobe of lung Plan to address problem: Patient is on cefTrioxone and Zyvox. (4) CAD (coronary artery disease) Current Visit: No Status: Chronic Qualifiers: Coronary Disease-Associated Artery/Lesion type: [place] artery [place] vs. transplanted heart: [place] heart Plan to address problem: Management as per primary care and cardiology. (5) HTN (hypertension) Current Visit: No Status: Chronic Qualifiers: Hypertension type: essential hypertension Qualified Code(s): I10 - Essen tial (primary) hypertension Plan to address problem: Management as per primary care. (6) PAD (peripheral artery disease) Current Visit: No Status: Chronic Plan to address problem: Management as per primary care and vascular. Subjective Date of service: 12/14/18 Interval history: Patient is seen today for: Seen and examined at bedside; 24hour events reviewed; nursing and respiratory care staff consulted; no adverse overnight events reported to me; Objective Vital Signs - 12hr 12/14/18 12/14/18 12/14/18 04:50 07:41 08:41 Temperature 98.0 F Pulse Rate 101 H Pulse Rate [ 96 H Anterior Bilateral Throughout] Respiratory 20 Rate Respiratory 20 Rate [Anterior Bilateral Throughout] Blood Pressure 127/86 O2 Sat by Pulse 93 96 Oximetry 12/14/18 12/14/18 12/14/18 10:00 10:37 11:29 Temperature 98.1 F Pulse Rate 101 H 97 H Pulse Rate [ Anterior Bilateral Throughout] Respiratory 22 Rate Respiratory Rate [Anterior Bilateral Throughout] Blood Pressure 127/86 147/80 O2 Sat by Pulse 101 H 94 Oximetry Constitutional: no acute distress, alert Eyes: non-icteric ENT: oropharynx moist Neck: supple, no JVD Ascultation: Right: rhonchi, Bilateral: diminished breath sounds Cardiovascular: regular rate and rhythm Gastrointestinal: normoactive bowel sounds, soft Integumentary: normal Extremities: no cyanosis, no edema Neurologic: normal mental status, non-focal exam, pupils equal and round, CN II- XII normal Psychiatric: mood appropriate CBC and BMP: 12/10/18 05:35 12/12/18 04:39 ABG, PT/INR, D-dimer: ABG ABG pH 7.384 pH Units (7.350-7.450) 12/12/18 Unknown ABG pCO2 58.2 mm Hg 12/12/18 Unknown ABG pO2 65.3 mm Hg (80.0-90.0) L 12/12/18 Unknown ABG O2 Saturation 94.4 % (95.0-99.0) L 12/12/18 Unknown PT/INR, D-dimer PT 14.9 Sec. (12.2-14.9) 12/07/18 18:08 INR 1.20 (0.87-1.13) H 12/07/18 18:08 314.63 ng/mlDDU (0-234) H 12/07/18 18:08 Abnormal lab findings: Abnormal Labs 12/07/18 12/07/18 12/07/18 18:08 18:08 18:08 WBC 13.3 H RBC Hgb Hct Lymph % (Auto) 6.4 L [place] % (Auto) 9.3 H Lymph # 0.9 L [place] # 1.2 H Seg Neutrophils % 83.9 H Seg Neutrophils # 11.2 H INR 1.20 H D-Dimer 314.63 H ABG pO2 ABG HCO3 ABG O2 Saturation ABG Base Excess ABG Hemoglobin Oxyhemoglobin Sodium 136 L Chloride 95.2 L Carbon Dioxide 31 H BUN Creatinine Glucose 121 H POC Glucose 12/10/18 12/10/18 12/11/18 05:35 05:35 07:36 WBC RBC 3.64 L Hgb 11.4 L Hct 33.4 L D Lymph % (Auto) [place] % (Auto) Lymph # [place] # Seg Neutrophils % Seg Neutrophils # INR D-Dimer ABG pO2 ABG HCO3 ABG O2 Saturation ABG Base Excess ABG Hemoglobin Oxyhemoglobin Sodium Chloride 96.5 L Carbon Dioxide 31 H BUN 5 L Creatinine 0.7 L Glucose 118 H POC Glucose 113 H 12/12/18 12/12/18 04:39 Unknown WBC RBC Hgb Hct Lymph % (Auto) [place] % (Auto) Lymph # [place] # Seg Neutrophils % Seg Neutrophils # INR D-Dimer ABG pO2 65.3 L ABG HCO3 34.0 H ABG O2 Saturation 94.4 L ABG Base Excess 7.2 H ABG Hemoglobin 12.7 L Oxyhemoglobin 92.3 L Sodium Chloride 97.3 L Carbon Dioxide 36 H BUN 6 L Creatinine 0.6 L Glucose 123 H POC Glucose
[2018-12-14] MEDS: TYLENOL PO PRN (17:01)
[2018-12-15] MEDS: SOLU-Medrol IV SCH ×2 (06:15→13:21)
[2018-12-15] MEDS: PULMICORT IH SCH (08:08)
[2018-12-15] MEDS: BROVANA NEBU IH SCH (08:08)
[2018-12-15] MEDS: HALFPRIN EC PO SCH (09:33)
[2018-12-15] MEDS: PROTONIX PO SCH (09:33)
[2018-12-15] MEDS: HEPARIN SUB-Q SCH (09:33)
[2018-12-15] MEDS: ROCEPHIN/NS 2 GM/100 ML 2 GM/100 ML BAG IV SCH (09:33)
[2018-12-15] MEDS: LOPRESSOR PO SCH (09:34)
[2018-12-15] MEDS: PLETAL PO SCH (09:35)
[2018-12-15] MEDS: ROBITUSSIN PO PRN (10:16)
[2018-12-15] MEDS: SPIRIVA IH SCH (10:28)
--- NOTE | 2018-12-15 11:11 | Progress Note ---
Assessment and Plan Acute hypercapnic hypoxemic respiratory failure SIRS Pneumonia (CAP) Acute COPD exacerbation Pneumonia CAD (coronary artery disease) HTN (hypertension) PAD (peripheral artery disease) GERD - continue Rocephin and Zyvox; de-escalate per ID rec's - continue supplemental oxygen as needed to keep O2 sat's > 90% - continue systemic steroids with taper - continue ICS - continue bronchodilators(MAXIME & LABA) with pulmonary hygiene per RT - tobacco abstinence counseled at bedside - GI % VTE prophylaxis - outpatient pulmonary clinic f/up - continue other care per attending / other consultants ... re-evaluate in am and prn .. d/c planning ongoing concurrently Subjective Date of service: 12/15/18 Principal diagnosis: Ac hypercapnic hypoxemic resp failure; SIRS; Pneumonia (CAP); AE-COPD Interval history: Patient is seen today for: Acute hypercapnic hypoxemicrespiratory failure; SIRS; Pneumonia (CAP); Acute COPD exacerbation; CAD (coronary artery disease); HTN (hypertension); PAD (peripheral artery disease); GERD Seen and examined at bedside; 24hour events reviewed; nursing and respiratory care staff consulted; no adverse overnight events reported to me; resting peacefully sitting in bed; looks and feels much better; + yellowish colored phlegm and no hemoptysis noted; + intermittent right lower chest wall pain; No N/V/F/C Objective Vital Signs - 12hr 12/15/18 12/15/18 12/15/18 05:03 08:08 09:34 Temperature 99.1 F Pulse Rate 90 85 Pulse Rate [ 98 H Anterior Bilateral Throughout] Respiratory 20 Rate Respiratory 20 Rate [Anterior Bilateral Throughout] Blood Pressure 117/77 O2 Sat by Pulse 96 95 Oximetry Constitutional: alert, other (elderly looking CM, normocephalic and atraumatic with mildly increased respiratory effort at rest) Eyes: non-icteric ENT: oropharynx moist, other (mallampati 2) Neck: supple, no lymphadenopathy, no JVD Effort: mildly labored Ascultation: Right: rhonchi, Bilateral: diminished breath sounds Percussion: Bilateral: not dull Cardiovascular: regular rate and rhythm, other (No R/M) Gastrointestinal: normoactive bowel sounds, soft, non-tender, non-distended Integumentary: normal Extremities: no cyanosis, no edema, pink and warm, pulses normal Neurologic: normal mental status, non-focal exam, pupils equal and round, CN II- XII normal, motor strength normal and Psychiatric: mood appropriate, affect normal CBC and BMP: 12/10/18 05:35 12/12/18 04:39 ABG, PT/INR, D-dimer: ABG ABG pH 7.384 pH Units (7.350-7.450) 12/12/18 Unknown ABG pCO2 58.2 mm Hg 12/12/18 Unknown ABG pO2 65.3 mm Hg (80.0-90.0) L 12/12/18 Unknown ABG O2 Saturation 94.4 % (95.0-99.0) L 12/12/18 Unknown PT/INR, D-dimer PT 14.9 Sec. (12.2-14.9) 12/07/18 18:08 INR 1.20 (0.87-1.13) H 12/07/18 18:08 314.63 ng/mlDDU (0-234) H 12/07/18 18:08 Abnormal lab findings: Abnormal Labs 12/07/18 12/07/18 12/07/18 18:08 18:08 18:08 WBC 13.3 H RBC Hgb Hct Lymph % (Auto) 6.4 L [place] % (Auto) 9.3 H Lymph # 0.9 L [place] # 1.2 H Seg Neutrophils % 83.9 H Seg Neutrophils # 11.2 H INR 1.20 H D-Dimer 314.63 H ABG pO2 ABG HCO3 ABG O2 Saturation ABG Base Excess ABG Hemoglobin Oxyhemoglobin Sodium 136 L Chloride 95.2 L Carbon Dioxide 31 H BUN Creatinine Glucose 121 H POC Glucose 12/10/18 12/10/18 12/11/18 05:35 05:35 07:36 WBC RBC 3.64 L Hgb 11.4 L Hct 33.4 L D Lymph % (Auto) [place] % (Auto) Lymph # [place] # Seg Neutrophils % Seg Neutrophils # INR D-Dimer ABG pO2 ABG HCO3 ABG O2 Saturation ABG Base Excess ABG Hemoglobin Oxyhemoglobin Sodium Chloride 96.5 L Carbon Dioxide 31 H BUN 5 L Creatinine 0.7 L Glucose 118 H POC Glucose 113 H 12/12/18 12/12/18 04:39 Unknown WBC RBC Hgb Hct Lymph % (Auto) [place] % (Auto) Lymph # [place] # Seg Neutrophils % Seg Neutrophils # INR D-Dimer ABG pO2 65.3 L ABG HCO3 34.0 H ABG O2 Saturation 94.4 L ABG Base Excess 7.2 H ABG Hemoglobin 12.7 L Oxyhemoglobin 92.3 L Sodium Chloride 97.3 L Carbon Dioxide 36 H BUN 6 L Creatinine 0.6 L Glucose 123 H POC Glucose Chest x-ray: image reviewed (RUL posterior infiltrate) Allied health notes reviewed: nursing
--- NOTE | 2018-12-15 11:45 | Discharge Summary ---
Providers - Providers Date of Admission: 12/08/18 00:24 Date of discharge: 12/15/18 Attending physician: JON FINNEGAN 12/11/18 18:39 Consult to Physician [CONS] Routine Comment: Consulting Provider: YOLA LINO Physician Instructions: Reason For Exam: Ac on Chr Resp failure/worsening Pneumonia 12/11/18 18:46 Consult to Physician [CONS] Routine Comment: Consulting Provider: JOE VILLASEÑOR Physician Instructions: Reason For Exam: worsening Pneumonia 12/14/18 12:52 Physical Therapy Evaluation and Treat [CONS] Routine Comment: Reason For Exam: placement Primary care physician: YAYO JOSE Hospitalization Condition: Stable Hospital course: The patient is a 58-year-old male with COPD who presented to the emergency room on 12/07/2018 with complaints of right-sided pleuritic chest pain." with on and off worsening shortness of breath. CT chest showed a right-sided pneumonia. He was started on empiric antibiotics: Ceftriaxone and azithromycin. Due to persistent symptoms, infectious diseases was consulted. PT consulted for physical debility. CTA: NO PE, BUT NOTED PNEUMONIA on RML Chest x-ray; 12/07/2018 Right upper lobe pneumonia F/U chest x-ray 12/11/2018 Increasing right upper and middle lobe pneumonia trace right pleural effusion F/U Chest x-ray; 12/13/2018; 25% decrease in the right upper lobe pneumonia since 12/11/2018 Discharge diagnosis and management: /Sepsis secondary to worsening right-sided Pneumonia; Community-acquired , and feels better ID adjusted antibiotics to Rocephin and Zyvox will comple regimen with ceftin till 12/16/18 /-Acute exacerbation of COPD; oxygen, nebulizers, IV steroids IV antibiotics, inhalation steroids, supportive care /-HTN ; moderate control, continue current antihypertensives and When necessary medications /-Acute on chronic hypoxic respiratory failure; pt on home O2 Multifactorial, secondary to COPD exacerbation, right-sided pneumonia Oxygen titrate O2 sats to more than 90%, nebulizers and antibiotic steroids /-Gastroesophageal reflux disease; Protonix /-DVT prophylaxis; Lovenox /Full CODE STATUS Monitor closely and adjust management as needed Consulted PT Plan of care reviewed with the patient his nurse discuss with ID and pulmonary Disposition; discharged with Hospitalist Physical General appearance: Present: no acute distress, well-nourished - EENT Eyes: Present: PERRL, EOM intact - Neck Neck: Present: supple, normal ROM - Respiratory Respiratory effort: normal Respiratory: right: diminished, rhonchi, bilateral: wheezing, negative: rales - Cardiovascular Rhythm: regular Heart Sounds: Present: S1 & S2 - Extremities Extremities: no ischemia, pulses intact - Abdominal General gastrointestinal: soft, non-tender, non-distended, normal bowel sounds - Integumentary Integumentary: Present: clear, warm - Psychiatric Psychiatric: appropriate mood/affect, cooperative - Neurologic Neurologic: CNII-XII intact, moves all extremities Disposition: [id number]/[place]-[id number] HOME UNDER HOME [facility] Time spent for discharge: 34 minutes Exam - Constitutional Vitals: Temp Pulse Resp BP Pulse Ox 99.1 F 85 20 117/77 95 12/15/18 05:03 12/15/18 09:34 12/15/18 08:08 12/15/18 05:03 12/15/18 08:08 Plan Activity: advance as tolerated Weight Bearing Status: Non-Weight Bearing Diet: low fat, low salt Special Instructions: home health RN Follow up with: YAYO JOSE MD [Primary Care Provider] - 3-5 Days Prescriptions: cefUROXime [Ceftin] 250 mg PO Q12H #4 tablet traMADol [Ultram 50 MG tab] 50 mg PO Q6HR PRN #7 tablet PRN Reason: Pain
[2018-12-15 16:03] VITALS: BP 121/76
== END 2018-12-15 15:45 | disposition home health service (06) | DRG 871 ==
LOC: ED 16:57 → 3A 12-08 00:24
PROVIDERS: ADMIT Internal Medicine; ATTEND Internal Medicine
PROC: 4A033R1 Measurement of Arterial Saturation, Peripheral, Percutaneous Approach (ICD-10-PCS; principal; 2018-12-12)
DX: A41.9 Sepsis, unspecified organism (principal); J96.21 Acute and chronic respiratory failure with hypoxia; J18.1 Lobar pneumonia, unspecified organism; J44.1 Chronic obstructive pulmonary disease with (acute) exacerbation; I48.91 Unspecified atrial fibrillation; I25.10 Atherosclerotic heart disease of native coronary artery without angina pectoris; J44.0 Chronic obstructive pulmonary disease with (acute) lower respiratory infection; K21.9 Gastro-esophageal reflux disease without esophagitis; I71.4 Abdominal aortic aneurysm, without rupture; I73.9 Peripheral vascular disease, unspecified; I10 Essential (primary) hypertension; Z99.81 Dependence on supplemental oxygen; Z90.49 Acquired absence of other specified parts of digestive tract; Z88.1 Allergy status to other antibiotic agents; Z87.891 Personal history of nicotine dependence; Z79.82 Long term (current) use of aspirin; Z79.899 Other long term (current) drug therapy
CPT/HCPCS: 36415; 36600; 71045; 71046; 71275; 80048; 82140; 82803; 82962; 83880; 84484; 85025; 85027; 85379; 85610; 85730; 86738; 87040; 87070; 87116; 87205; 87449; 93005; 93010; 94640; 94760; 96365; 96375; G0378; C9113; J0456; J0692; J0696; J1644; J2405; J2920; J3370; J7030; J7040; J7050; Q9967

== ENCOUNTER 2019-10-23 15:00 | Inpatient (IN) | payer MEDICAID ==
--- NOTE | 2019-10-23 15:08 | Emergency Department Report ---
ED Shortness of Breath HPI - General Chief Complaint: Dyspnea/Respdistress Stated Complaint: EH Time Seen by Provider: 10/23/19 15:06 Source: patient, EMS Mode of arrival: Stretcher Limitations: No Limitations - History of Present Illness Initial Comments: Patient is a 58-year-old male that presents emergency room with complaints of shortness of breath and cough and fever. Patient states his fever started this morning. Patient states his shortness of breath been going on for 2 weeks but today became unbearable. Patient states he has a history of CHF and COPD. 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 Patient states that his shortness breath is better with rest and worse with exertion. Patient denies chest pain. Patient denies body aches. Patient denies nausea vomiting. Patient denies diarrhea. Patient states his cough is dry. MD Complaint: shortness of breath, cough -: Sudden Severity: severe - Related Data Home Medications Medication Instructions Recorded Confirmed Last Taken Aspirin [Adult Low Dose Aspirin EC] 81 mg PO DAILY 11/06/17 10/23/19 11/06/17 Previous Rx's Medication Instructions Recorded Last Taken Type ALBUTEROL NEB's [Proventil 0.083% 2.5 mg IH Q6H PRN #30 nebu 11/08/17 Unknown Rx NEBS] Albuterol Sulfate [Proventil Hfa] 2 puff IH QID PRN #30 hfa.aer.ad 11/08/17 Unknown Rx Budesoni/Formotero 160-4.5(Nf) 2 puff IH BID #30 inha 11/08/17 Unknown Rx [Symbicort 160-4.5 (Nf)] Metoprolol [Lopressor TAB] 12.5 mg PO BID #60 tablet 11/08/17 Unknown Rx Nitroglycerin [Nitrostat] 0.4 mg SL Q5M PRN #30 tablet 11/08/17 Unknown Rx Tiotropium [place] [Spiriva 4 puff IH DAILY #30 mist.inhal 11/08/17 Unknown Rx Respimat] cilostazoL [Pletal] 100 mg PO BID #60 tablet 11/08/17 Unknown Rx guaiFENesin ER [Mucinex ER] 600 mg PO BID #14 tablet 03/20/18 Unknown Rx cefUROXime [Ceftin] 250 mg PO Q12H #4 tablet 12/15/18 Unknown Rx predniSONE [Deltasone] 50 mg PO QDAY #5 tab 12/15/18 Unknown Rx traMADoL [Ultram 50 MG tab] 50 mg PO Q6HR PRN #7 tablet 12/15/18 Unknown Rx Meloxicam [Qmiiz Odt] 15 mg PO DAILY #7 tab.rapdis 01/18/19 Unknown Rx methOCARBAMOL [Robaxin TAB] 750 mg PO Q8H PRN #14 tablet 01/18/19 Unknown Rx Allergies Allergy/AdvReac Type Severity Reaction Status Date / Time ciprofloxacin Allergy Rash Verified 12/09/18 16:13 ED Review of Systems ROS: Stated complaint: EH Other details as noted in HPI Constitutional: fever Eyes: denies: eye pain, eye discharge, vision change ENT: denies: ear pain, throat pain Respiratory: cough, shortness of breath, SOB with exertion, SOB at rest. denies: wheezing Cardiovascular: denies: chest pain, palpitations Endocrine: no symptoms reported Gastrointestinal: denies: abdominal pain, nausea, diarrhea Genitourinary: denies: urgency, dysuria Musculoskeletal: denies: back pain, joint swelling, arthralgia Skin: denies: rash, lesions Neurological: denies: headache, weakness, paresthesias Psychiatric: denies: anxiety, depression Hematological/Lymphatic: denies: easy bleeding, easy bruising ED Past Medical Hx - Past Medical History Previous Medical History?: Yes Hx Hypertension: Yes Hx Congestive Heart Failure: Yes Hx Diabetes: No Hx Asthma: No (bronchitis) Hx COPD: Yes Additional medical history: A Fib. AAA - Surgical History Hx Appendectomy: Yes Additional Surgical History: murmur - Social History Smoking Status: Former Smoker Substance Use Type: None - Medications Home Medications: Home Medications Medication Instructions Recorded Confirmed Last Taken Type Aspirin [Adult Low Dose Aspirin EC] 81 mg PO DAILY 11/06/17 10/23/19 11/06/17 History ALBUTEROL NEB's [Proventil 0.083% 2.5 mg IH Q6H PRN #30 nebu 11/08/17 10/23/19 Unknown Rx NEBS] Albuterol Sulfate [Proventil Hfa] 2 puff IH QID PRN #30 hfa.aer.ad 11/08/17 10/23/19 Unknown Rx Budesoni/Formotero 160-4.5(Nf) 2 puff IH BID #30 inha 11/08/17 10/23/19 Unknown Rx [Symbicort 160-4.5 (Nf)] Metoprolol [Lopressor TAB] 12.5 mg PO BID #60 tablet 11/08/17 10/23/19 Unknown Rx Nitroglycerin [Nitrostat] 0.4 mg SL Q5M PRN #30 tablet 11/08/17 10/23/19 Unknown Rx Tiotropium [place] [Spiriva 4 puff IH DAILY #30 mist.inhal 11/08/17 10/23/19 Unknown Rx Respimat] cilostazoL [Pletal] 100 mg PO BID #60 tablet 11/08/17 10/23/19 Unknown Rx guaiFENesin ER [Mucinex ER] 600 mg PO BID #14 tablet 03/20/18 10/23/19 Unknown Rx cefUROXime [Ceftin] 250 mg PO Q12H #4 tablet 12/15/18 10/23/19 Unknown Rx predniSONE [Deltasone] 50 mg PO QDAY #5 tab 12/15/18 10/23/19 Unknown Rx traMADoL [Ultram 50 MG tab] 50 mg PO Q6HR PRN #7 tablet 12/15/18 10/23/19 Unknown Rx Meloxicam [Qmiiz Odt] 15 mg PO DAILY #7 tab.rapdis 01/18/19 10/23/19 Unknown Rx methOCARBAMOL [Robaxin TAB] 750 mg PO Q8H PRN #14 tablet 01/18/19 10/23/19 Unknown Rx ED Physical Exam - General Limitations: No Limitations General appearance: alert, in distress - Head Head exam: Present: atraumatic, normocephalic - Eye Eye exam: Present: normal appearance - ENT ENT exam: Present: mucous membranes dry - Neck Neck exam: Present: normal inspection - Respiratory Respiratory exam: Present: respiratory distress, decreased breath sounds - Cardiovascular Cardiovascular Exam: Present: regular rate, normal rhythm. Absent: systolic murmur, diastolic murmur, rubs, gallop - GI/Abdominal GI/Abdominal exam: Present: soft, normal bowel sounds - Rectal Rectal exam: Present: deferred - Extremities Exam Extremities exam: Present: normal inspection - Back Exam Back exam: Present: normal inspection - Neurological Exam Neurological exam: Present: alert, oriented X3 - Psychiatric Psychiatric exam: Present: normal affect, normal mood - Skin Skin exam: Present: warm, dry, intact, normal color. Absent: rash ED Course Vital Signs 10/23/19 10/23/19 10/23/19 15:35 15:40 15:46 Temperature 98.1 F Pulse Rate 99 H 97 H Pulse Rate [ Bilateral] Respiratory 20 18 Rate Respiratory Rate [Bilateral ] Blood Pressure 145/94 O2 Sat by Pulse 98 97 Oximetry 10/23/19 10/23/19 10/23/19 16:00 16:30 17:00 Temperature Pulse Rate 93 H 96 H 100 H Pulse Rate [ Bilateral] Respiratory 15 18 16 Rate Respiratory Rate [Bilateral ] Blood Pressure 118/72 145/94 132/87 O2 Sat by Pulse 96 96 96 Oximetry 10/23/19 10/23/19 10/23/19 17:30 17:47 18:00 Temperature Pulse Rate 103 H 102 H Pulse Rate [ 90 Bilateral] Respiratory 20 16 Rate Respiratory 18 Rate [Bilateral ] Blood Pressure 132/87 116/79 O2 Sat by Pulse 97 97 Oximetry 10/23/19 10/23/19 18:46 19:00 Temperature Pulse Rate 101 H 95 H Pulse Rate [ Bilateral] Respiratory 16 17 Rate Respiratory Rate [Bilateral ] Blood Pressure 132/87 117/83 O2 Sat by Pulse 98 98 Oximetry - Reevaluation(s) Reevaluation #1: Initial evaluation done immediately upon arrival with EMS. Patient found to be hypoxic and placed on oxygen. Patient responded well to 3 L of oxygen. Patient is currently 96% on 3 L. 10/23/19 15:06 Reevaluation #2: I discussed all results with patient. I discussed plan of care with patient. Patient agrees with plan of care and admission. Patient to be admitted to the hospitalist service. 10/23/19 17:52 - Consultations Consultation #1: Discussed case with Dr. Polanco. Dr. Polanco recommends admission and COVID work-up. 10/23/19 17:44 Consultation #2: Hospitalist consulted for admission. Hospitalist to admit patient. 10/23/19 17:53 ED Medical Decision Making - Lab Data Result diagrams: 10/23/19 15:17 10/23/19 17:44 - EKG Data -: EKG Interpreted by Me EKG shows normal: sinus rhythm, axis, intervals, QRS complexes, ST-T waves Rate: normal - Radiology Data Radiology results: report reviewed, image reviewed CHEST 1 VIEW INDICATION / CLINICAL INFORMATION: sob. COMPARISON: 12/13/2018 FINDINGS: SUPPORT DEVICES: None. HEART / MEDIASTINUM: No significant abnormality. LUNGS / PLEURA: No significant pulmonary or pleural abnormality. No pneumothorax. ADDITIONAL FINDINGS: No significant additional findings. IMPRESSION: 1. No acute findings. - Medical Decision Making Patient is a 58-year-old male that presents emergency room with complaints of shortness of breath, cough and fever. Patient states his fever started today. He states his shortness of breath been going on for little while. They states he has a history of COPD. Patient found to have a COPD exacerbation. Based on the patient's fever, I consulted ID and Dr. Polanco recommended admission for COVID work-up and hypoxia. Patient was found to be hypoxic and placed on oxygen which brought his O2 sat from 88 to 94-96%. Patient's chest x-ray was negative. Patient was given Solu-Medrol and a DuoNeb and his symptoms improved. Patient admitted to the hospitalist service. - Differential Diagnosis COVID, fever, shortness of breath, chest pain, ACS, COPD Critical Care Time: Yes Critical care time in (mins) excluding proc time.: 35 Critical care attestation.: If time is entered above; I have spent that time in minutes in the direct care of this critically ill patient, excluding procedure time. Critical Care Time: 35 minutes ED Disposition Clinical Impression: Hypoxia, COPD exacerbation, SOB (shortness of breath), Cough, Suspected COVID- 19 virus infection Fever Qualifiers: Fever type: unspecified Qualified Code(s): R50.9 - Fever, unspecified Disposition: DC-09 OP ADMIT IP TO THIS HOSP Is pt being admited?: Yes Does the pt Need Aspirin: No Condition: Critical Time of Disposition: 17:49
[2019-10-23 15:49] LABS: Basophils % (Auto) 0.6 % (0.0-1.8); Eosinophils # (Auto) 0.1 K/mm3 (0.0-0.4); Eosinophils % (Auto) 2.6 % (0.0-4.3); Hemoglobin 13.2 gm/dl (11.8-15.2); Lymphocytes # (Auto) 1.3 K/mm3 (1.2-5.4); Lymphocytes % (Auto) 24.1 % (13.4-35.0); Mean Corpuscular HGB Conc 35 % (32-34); Mean Corpuscular Volume 92 fl (84-94); Monocytes # (Auto) 0.7 K/mm3 (0.0-0.8); Monocytes % (Auto) 12.3 % (0.0-7.3); Platelet Count 200 K/mm3 (140-440); Red Blood Count 4.14 M/mm3 (3.65-5.03); Red Cell Distribution Width 14.4 % (13.2-15.2)
--- NOTE | 2019-10-23 15:56 | XRay Report ---
CHEST 1 VIEW INDICATION / CLINICAL INFORMATION: sob. COMPARISON: 12/13/2018 FINDINGS: SUPPORT DEVICES: None. HEART / MEDIASTINUM: No significant abnormality. LUNGS / PLEURA: No significant pulmonary or pleural abnormality. No pneumothorax. ADDITIONAL FINDINGS: No significant additional findings. IMPRESSION: 1. No acute findings. Signer Name: Anuj Birmingham MD Signed: 10/23/2019 3:51 PM Workstation Name: [id number]
[2019-10-23 15:59] LABS: Bilirubin,Urine NEG (Negative); Blood,Urine NEG (Negative); Color,Urine Yellow (Yellow); Mucus,Urine FEW /HPF; Protein,Urine <15 mg/dL mg/dL (Negative); Urobilinogen,Urine < 2.0 mg/dL (<2.0); WBC,Urine < 1.0 /HPF (0.0-6.0)
[2019-10-23 16:17] LABS: Alanine Aminotransferase 19 units/L (7-56); Albumin 4.5 g/dL (3.9-5); BUN/Creatinine Ratio 8; Blood Urea Nitrogen 6 mg/dL (9-20); Calcium 9.1 mg/dL (8.4-10.2); Hemolysis Index 5
[2019-10-23] MEDS ORDERED: dexAMETHasone 4 MG/ML VIAL IV ONE (17:05)
[2019-10-23] MEDS ORDERED: IPRATROPIUM/ALBUTEROL SULFATE 3 ML AMPUL.NEB IH ONE (17:05)
[2019-10-23 18:28] LABS: C-Reactive Protein 0.1 mg/dL (0.00-1.30)
[2019-10-23] MEDS ORDERED: ONDANSETRON 4 MG/2 ML INJ IV PRN (22:31)
[2019-10-23] MEDS ORDERED: MAGNESIUM HYDROXIDE (MOM) ORAL LIQD UDC PO PRN (22:31)
--- NOTE | 2019-10-24 01:01 | History and Physical Report ---
History of Present Illness Date of examination: 10/23/19 Date of admission: 10/23/19 19:29 Chief complaint: Shortness of breath Cough Fever History of present illness: 58-year-old male with known history of CHF, A. fib and COPD presenting to the emergency room today complaining of shortness of breath, cough and fever. Fever was said to have started earlier this morning. Shortness of breath has been ongoing for about 2 weeks and got worse today. 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 He denies any chest pain, no nausea or vomiting, no abdominal pain, no diarrhea, no headache or dizziness. Shortness of breath is said to be worse on exertion and gets better on resting. Cough has been nonproductive. He denies any sick contacts or recent travel and denies any contact with anyone with COVID-19. Upon arrival in the emergency room was slightly hypoxic. He was given some nebulizer treatments and IV steroids with significant improvement. Infectious disease physician was consulted and recommendation was to start patient on IV Decadron 6 mg daily. Patient will be ruled out for COVID-19. Work-up so far in the emergency room has been unremarkable. Past History Past Medical History: atrial fib, heart failure, hypertension, other (History of AAA) Past Surgical History: appendectomy Social history: smoking (Patient is a former smoker) Family history: no significant family history Medications and Allergies Allergies Allergy/AdvReac Type Severity Reaction Status Date / Time ciprofloxacin Allergy Rash Verified 12/09/18 16:13 Home Medications Medication Instructions Recorded Confirmed Last Taken Type Aspirin [Adult Low Dose Aspirin EC] 81 mg PO DAILY 11/06/17 10/23/19 11/06/17 History ALBUTEROL NEB's [Proventil 0.083% 2.5 mg IH Q6H PRN #30 nebu 11/08/17 10/23/19 Unknown Rx NEBS] Albuterol Sulfate [Proventil Hfa] 2 puff IH QID PRN #30 hfa.aer.ad 11/08/17 10/23/19 Unknown Rx Budesoni/Formotero 160-4.5(Nf) 2 puff IH BID #30 inha 11/08/17 10/23/19 Unknown Rx [Symbicort 160-4.5 (Nf)] Metoprolol [Lopressor TAB] 12.5 mg PO BID #60 tablet 11/08/17 10/23/19 Unknown Rx Nitroglycerin [Nitrostat] 0.4 mg SL Q5M PRN #30 tablet 11/08/17 10/23/19 Unknown Rx Tiotropium [place] [Spiriva 4 puff IH DAILY #30 mist.inhal 11/08/17 10/23/19 Unknown Rx Respimat] cilostazoL [Pletal] 100 mg PO BID #60 tablet 11/08/17 10/23/19 Unknown Rx guaiFENesin ER [Mucinex ER] 600 mg PO BID #14 tablet 03/20/18 10/23/19 Unknown Rx cefUROXime [Ceftin] 250 mg PO Q12H #4 tablet 12/15/18 10/23/19 Unknown Rx predniSONE [Deltasone] 50 mg PO QDAY #5 tab 12/15/18 10/23/19 Unknown Rx traMADoL [Ultram 50 MG tab] 50 mg PO Q6HR PRN #7 tablet 12/15/18 10/23/19 Unknown Rx Meloxicam [Qmiiz Odt] 15 mg PO DAILY #7 tab.rapdis 01/18/19 10/23/19 Unknown Rx methOCARBAMOL [Robaxin TAB] 750 mg PO Q8H PRN #14 tablet 01/18/19 10/23/19 Unknown Rx Active Meds: Active Medications Acetaminophen (Tylenol) 650 mg PO Q4H PRN PRN Reason: Pain MILD(1-3)/Fever >100.5/[place] Albuterol/Ipratropium (Duoneb *Not For Prn Use*) 1 ampul IH Q4HRT [facility] Enoxaparin Sodium (Enoxaparin) 40 mg SUB-Q QDAY@2200 JESSICA Magnesium Hydroxide (Milk Of Magnesia) 30 ml PO Q4H PRN PRN Reason: Constipation Methylprednisolone Sodium Succinate (Solu-Medrol) 40 mg IV Q8HR JESSICA Ondansetron HCl (Zofran) 4 mg IV Q8H PRN PRN Reason: Nausea And Vomiting Sodium Chloride (Sodium Chloride Flush Syringe 10 Ml) 10 ml IV BID [facility] Sodium Chloride (Sodium Chloride Flush Syringe 10 Ml) 10 ml IV PRN PRN PRN Reason: LINE FLUSH Review of Systems Constitutional: fever, chills Cardiovascular: no chest pain, no palpitations, no syncope Respiratory: cough, shortness of breath Gastrointestinal: no abdominal pain, no nausea, no vomiting, no diarrhea Genitourinary Male: no dysuria, no hematuria Musculoskeletal: no neck pain, no low back pain Integumentary: no rash, no pruritis Neurological: no headaches, no confusion Psychiatric: no anxiety, no depression Exam - Constitutional Vitals: Temp Pulse Resp BP Pulse Ox 98.1 F 94 H 17 112/73 97 10/23/19 15:40 10/23/19 20:00 10/23/19 20:00 10/23/19 20:00 10/23/19 20:00 General appearance: Present: no acute distress, well-nourished - EENT Eyes: Present: PERRL, EOM intact ENT: hearing intact, clear oral mucosa, dentition normal - Neck Neck: Present: supple, normal ROM - Respiratory Respiratory effort: normal Respiratory: bilateral: CTA - Cardiovascular Rhythm: regular Heart Sounds: Present: S1 & S2. Absent: gallop, systolic murmur, diastolic murmur, rub - Extremities Extremities: no ischemia, pulses intact, pulses symmetrical, No edema, Full ROM Peripheral Pulses: within normal limits - Abdominal General gastrointestinal: Present: soft, non-tender, non-distended, normal bowel sounds - Integumentary Integumentary: Present: clear, warm, dry. Absent: jaundice, rash - Musculoskeletal Musculoskeletal: strength equal bilaterally - Psychiatric Psychiatric: appropriate mood/affect, intact judgment & insight - Neurologic Neurologic: CNII-XII intact, no focal deficits, moves all extremities HEART Score - HEART Score Troponin: Troponin T 0.013 ng/mL (0.00-0.029) 10/23/19 15:17 Results - Labs CBC & Chem 7: 10/23/19 15:17 10/23/19 17:44 Labs: Abnormal lab results 10/23/19 10/23/19 10/23/19 Range/Units 15:17 15:17 17:44 MCHC 35 H (32-34) % [place] % (Auto) 12.3 H (0.0-7.3) % D-Dimer 284.90 H (0-234) ng/mlDDU Chloride 97.7 L (98-107) mmol/L Carbon Dioxide 31 H (22-30) mmol/L BUN 6 L (9-20) mg/dL Glucose 123 H (75-100) mg/dL Lactate Dehydrogenase (91-180) units/L 10/23/19 Range/Units 17:44 MCHC (32-34) % [place] % (Auto) (0.0-7.3) % D-Dimer (0-234) ng/mlDDU Chloride (98-107) mmol/L Carbon Dioxide (22-30) mmol/L BUN (9-20) mg/dL Glucose 110 H (75-100) mg/dL Lactate Dehydrogenase 189 H (91-180) units/L Assessment and Plan - Patient Problems (1) COPD exacerbation Current Visit: Yes Status: Acute Plan to address problem: Patient on nebulizer treatment and IV steroid. Will keep O2 saturation greater or equal to 92%. (2) Hypoxia Current Visit: Yes Status: Acute Plan to address problem: Patient placed on oxygen will keep O2 saturation greater or equal to 92%. (3) Suspected COVID-19 virus infection Current Visit: Yes Status: Acute Plan to address problem: Patient will be ruled out for COVID-19. Will await infectious disease input. (4) HTN (hypertension) Current Visit: No Status: Chronic Qualifiers: Hypertension type: essential hypertension Qualified Code(s): I10 - Essent ial (primary) hypertension Plan to address problem: We will continue patient's routine home medications and monitor vital signs closely. (5) DVT prophylaxis Current Visit: No Status: Acute Plan to address problem: Patient placed on subcutaneous Lovenox. (6) Full code status Current Visit: Yes Status: Acute
[2019-10-24] MEDS: IPRATROPIUM/ALBUTEROL SULFATE 3 ML AMPUL.NEB IH SCH ×6 (01:12→21:57)
[2019-10-24 05:40] LABS: Basophils % (Auto) 0.1 % (0.0-1.8); Hematocrit 39.4 % (35.5-45.6); Lymphocytes # (Auto) 0.6 K/mm3 (1.2-5.4); Lymphocytes % (Auto) 10.3 % (13.4-35.0); Mean Corpuscular HGB Conc 33 % (32-34); Mean Corpuscular Volume 93 fl (84-94); Monocytes # (Auto) 0.2 K/mm3 (0.0-0.8); Monocytes % (Auto) 3.8 % (0.0-7.3); Platelet Count 202 K/mm3 (140-440); Red Blood Count 4.26 M/mm3 (3.65-5.03); Red Cell Distribution Width 14.1 % (13.2-15.2)
[2019-10-24 05:48] LABS: INR 1.06 (0.87-1.13)
[2019-10-24] MEDS ORDERED: methylPREDNISolone Sod Succinate 40 MG/1 ML INJ IV SCH (06:00)
[2019-10-24 06:03] LABS: BUN/Creatinine Ratio 11; Blood Urea Nitrogen 9 mg/dL (9-20); Calcium 9.3 mg/dL (8.4-10.2); Hemolysis Index 8
[2019-10-24] MEDS ORDERED: dexAMETHasone 4 MG/ML VIAL IV SCH (10:00)
--- NOTE | 2019-10-24 10:43 | Consultation ---
History of Present Illness - Reason for Consult Consult date: 10/24/19 r/o COVID Requesting physician: MIGUELANGEL PEREZ III - History of Present Illness 58 years old male with history of COPD/emphysema and CHF, former smoker, admitted on 10/23/2019 due to 2-week history of worsening shortness of breath and dyspnea on exertion associated with a recent fever. Last 24 hours was severe and he decided to come to the ED. 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 Denies any nausea, vomiting, diarrhea. Denies any chest pain. Denies any contact with COVID-19 patients. Denies any recent travels. In the ED, temperature 98.1, HR 99, RR 20, O2 sat 98%, BP 145/94. Initial WBC 5.5. Platelets 200. D-dimer 284, CRP 0.1. LDH 189, ferritin 67. In the ED O2 sat was found to be down to 88%. Review of Systems: positive in bold print General: fever, chills, malaise Cutaneous: rash, pruritus Head: headaches or injury Eyes: changes in vision, eye pain, double vision Ears: ear pain, ear discharge, ringing or hearing loss Nose: nose bleeding, stuffiness Mouth & throat: bleeding gums, horseness, no dental problems, or swollen glands Neck: no pain, node enlargement/lumps, tyroid enlargement or tenderness Respiratory: SOB, cough, LEBRON, wheezing, sputum, hemoptysis, pleuritic chest pain Cardiovascular: chest pain, leg edema, cyanosis, LEBRON, orthopnea Musculoskeletal: edema, deformities, pain Gastrointestinal: nausea, vomiting, hematemesis, diarrhea, constipation, melena, bright red blood in stools, fecal incontinence, jaundice Genitourinary/Reproductive: frequent urination, dysuria, hematuria, incontinence Neurogical: seizures, headaches, weakness, paresthesias, loss of speech or vision; memory loss, vertigo, tremors, numbness Psychiatric: stable mood; excessive anxiety, sadness or moodiness Past History Past Medical History: atrial fib, heart failure, hypertension, other (History of AAA) Past Surgical History: appendectomy Social history: smoking (Patient is a former smoker) Family history: no significant family history Medications and Allergies Allergies Allergy/AdvReac Type Severity Reaction Status Date / Time ciprofloxacin Allergy Rash Verified 12/09/18 16:13 Home Medications Medication Instructions Recorded Confirmed Last Taken Type Aspirin [Adult Low Dose Aspirin EC] 81 mg PO DAILY 11/06/17 10/23/19 11/06/17 Hi story ALBUTEROL NEB's [Proventil 0.083% 2.5 mg IH Q6H PRN #30 nebu 11/08/17 10/23/19 Unknown Rx NEBS] Albuterol Sulfate [Proventil Hfa] 2 puff IH QID PRN #30 hfa.aer.ad 11/08/17 10/23/19 Unknown Rx Budesoni/Formotero 160-4.5(Nf) 2 puff IH BID #30 inha 11/08/17 10/23/19 Unknown Rx [Symbicort 160-4.5 (Nf)] Metoprolol [Lopressor TAB] 12.5 mg PO BID #60 tablet 11/08/17 10/23/19 Unknown Rx Nitroglycerin [Nitrostat] 0.4 mg SL Q5M PRN #30 tablet 11/08/17 10/23/19 Unknown Rx Tiotropium [place] [Spiriva 4 puff IH DAILY #30 mist.inhal 11/08/17 10/23/19 Unknown Rx Respimat] cilostazoL [Pletal] 100 mg PO BID #60 tablet 11/08/17 10/23/19 Unknown Rx guaiFENesin ER [Mucinex ER] 600 mg PO BID #14 tablet 03/20/18 10/23/19 Unknown Rx cefUROXime [Ceftin] 250 mg PO Q12H #4 tablet 12/15/18 10/23/19 Unknown Rx predniSONE [Deltasone] 50 mg PO QDAY #5 tab 12/15/18 10/23/19 Unknown Rx traMADoL [Ultram 50 MG tab] 50 mg PO Q6HR PRN #7 tablet 12/15/18 10/23/19 Unknown Rx Meloxicam [Qmiiz Odt] 15 mg PO DAILY #7 tab.rapdis 01/18/19 10/23/19 Unknown Rx methOCARBAMOL [Robaxin TAB] 750 mg PO Q8H PRN #14 tablet 01/18/19 10/23/19 Unknown Rx Active Meds: Active Medications Acetaminophen (Tylenol) 650 mg PO Q4H PRN PRN Reason: Pain MILD(1-3)/Fever >100.5/[place] Albuterol/Ipratropium (Duoneb *Not For Prn Use*) 1 ampul IH Q4HRT [facility] Last Admin: 10/24/19 07:39 Dose: 1 ampul Documented by: Dexamethasone (Decadron) 6 mg IV Q24HR [facility] Enoxaparin Sodium (Enoxaparin) 40 mg SUB-Q QDAY@2200 [facility] Magnesium Hydroxide (Milk Of Magnesia) 30 ml PO Q4H PRN PRN Reason: Constipation Ondansetron HCl (Zofran) 4 mg IV Q8H PRN PRN Reason: Nausea And Vomiting Sodium Chloride (Sodium Chloride Flush Syringe 10 Ml) 10 ml IV BID [facility] Sodium Chloride (Sodium Chloride Flush Syringe 10 Ml) 10 ml IV PRN PRN PRN Reason: LINE FLUSH Physical Examination - Physical Exam Narrative exam: Physical exam limited due to conservation of PPE General appearance: Alert in NAD Eyes: anicteric sclerae, moist conjunctivae; no lid-lag; PERRLA HENT: Atraumatic; Lungs: CV: Abdomen: Soft Extremities: no edema, no cyanosis Skin: No rash. Psych: Appropriate affect, alert and oriented to person, place and time. Neuro: alert and oriented x 3. Moving all extermities - Constitutional Vitals: Vital Signs Temp Pulse Resp BP Pulse Ox 97.7 F 94 H 18 130/91 96 10/24/19 05:14 10/24/19 05:14 10/24/19 05:14 10/24/19 05:14 10/24/19 05:14 Temperature -Last 24 Hours Temperature 97.7 F Temperature 97.6 F Temperature 98.1 F Results - Labs CBC & Chem 7: 10/24/19 04:58 10/24/19 04:58 Labs: Abnormal lab results 10/23/19 10/23/19 10/23/19 Range/Units 15:17 15:17 17:44 MCHC 35 H (32-34) % Lymph % (Auto) (13.4-35.0) % [place] % (Auto) 12.3 H (0.0-7.3) % Lymph # (1.2-5.4) K/mm3 Seg Neutrophils % (40.0-70.0) % D-Dimer 284.90 H (0-234) ng/mlDDU Chloride 97.7 L (98-107) mmol/L Carbon Dioxide 31 H (22-30) mmol/L BUN 6 L (9-20) mg/dL Glucose 123 H (75-100) mg/dL Lactate Dehydrogenase (91-180) units/L 10/23/19 10/24/19 10/24/19 Range/Units 17:44 04:58 04:58 MCHC (32-34) % Lymph % (Auto) 10.3 L (13.4-35.0) % [place] % (Auto) (0.0-7.3) % Lymph # 0.6 L (1.2-5.4) K/mm3 Seg Neutrophils % 85.8 H (40.0-70.0) % D-Dimer (0-234) ng/mlDDU Chloride (98-107) mmol/L Carbon Dioxide (22-30) mmol/L BUN (9-20) mg/dL Glucose 110 H 164 H (75-100) mg/dL Lactate Dehydrogenase 189 H (91-180) units/L Assessment and Plan Cultures: Blood cultures no growth today Assessment: 58 years old male with history of COPD/emphysema and CHF, former smoker, admitted on 10/23/2019 due to 2-week history of worsening shortness of breath and dyspnea on exertion associated with a recent fever: #Presumed COPD exacerbation versus COVID-19 infection: Patient with known- emphysema, with worsening symptoms and a recent fever. Given pandemic, will rule out COVID-19 infection. Chest x-ray shows no infiltrates. Inflammatory markers are midly elevated, d-dimer and CRP, but normal ferritin (D-dimer 284, CRP 0.1. LDH 189, ferritin 67). #Hypoxemia: Possible due to COPD exacerbation, less likely COVID-19 infection. Recommendations: Follow-up COVID-19 test Continuous pulse ox Start ceftriaxone 2 g IV once a day to cover COPD exacerbation for now Check procalcitonin Okay to start steroids for COPD exacerbation Will follow. Samantha Veloz MD Infectious Diseases [employer] [facility] M [phone] O [phone]
[2019-10-24] MEDS ORDERED: cefTRIAXone/NS 2 GM/100 ML 2 GM/100 ML BAG IV SCH (12:00)
[2019-10-24] MEDS: dexAMETHasone 20 MG/5 ML VIAL IV SCH (12:31)
[2019-10-24] MEDS: ACETAMINOPHEN 325 MG TAB PO PRN (12:42)
--- NOTE | 2019-10-24 15:22 | Progress Note ---
Assessment and Plan /Acute COPD exacerbation Patient on nebulizer treatment, abx and IV steroid. Will keep O2 saturation greater or equal to 92%. /Acute on chronic hypoxic respiratory failure Due to COPD exacerbation, negative for COVID-19 Patient placed on oxygen will keep O2 saturation greater or equal to 92%. Continue to treat for atypical pneumonia / Suspected COVID-19 virus infection Patient ruled out for COVID-19. Treat for atypical pneumonia for total of 1 weeks per ID recommendation / HTN (hypertension) We will continue patient's routine home medications and monitor vital signs closely. / DVT prophylaxis Patient placed on subcutaneous Lovenox. /Full code status 10/23: Negative for COVID-19, patient remains symptomatic with difficulty breathing even on resting, continue to treat for COPD exacerbation and atypical pneumonia Physical exam: GENERAL: well-developed and well-nourished elderly white male sitting on bed appeared to be in no discomfort. HEENT: Normocephalic. Atraumatic. No conjunctival congestion or icterus. Patient has moist mucous membranes. NECK: Supple. Trachea midline. CHEST/LUNGS: diminished BS auscultated bilaterally, breathing nonlabored. No wheezes crackles or rhonchi. HEART/CARDIOVASCULAR: Regular in rate and rhythm. S1 and S2 positive. ABDOMEN: Abdomen is soft, nontender. Patient has normal bowel sounds. SKIN: There is no rash. Warm and dry. NEURO: No focal motor deficit. Follows command. MUSCULOSKELETAL: No joint effusion or tenderness. EXTRIMITY: No edema, no cyanosis or clubbing. PSYCH: Cooperative. Subjective Date of service: 10/24/19 Interval history: Patient seen and examined. Medical records and medication list reviewed. No acute event overnight noted by the RN. Patient is COVID-19 test came as negative Patient complains of difficulty breathing even on resting. Patient is tolerating diet. Discussed plan of care at bedside with patient. Objective - Constitutional Vitals: Vital Signs - 12hr 10/24/19 10/24/19 10/24/19 05:14 08:00 10:00 Temperature 97.7 F Pulse Rate 94 H Pulse Rate [ 96 H Bilateral] Respiratory 18 Rate Respiratory 18 Rate [Bilateral ] Blood Pressure 130/91 O2 Sat by Pulse 96 98 Oximetry 10/24/19 10/24/19 11:09 14:44 Temperature 98.1 F Pulse Rate 96 H Pulse Rate [ 96 H Bilateral] Respiratory 18 Rate Respiratory 18 Rate [Bilateral ] Blood Pressure 138/88 O2 Sat by Pulse 98 Oximetry - Labs CBC & Chem 7: 10/24/19 04:58 10/26/19 15:41 Labs: Abnormal lab results 10/23/19 10/23/19 10/23/19 Range/Units 15:17 15:17 17:44 MCHC 35 H (32-34) % Lymph % (Auto) (13.4-35.0) % [place] % (Auto) 12.3 H (0.0-7.3) % Lymph # (1.2-5.4) K/mm3 Seg Neutrophils % (40.0-70.0) % D-Dimer 284.90 H (0-234) ng/mlDDU Chloride 97.7 L (98-107) mmol/L Carbon Dioxide 31 H (22-30) mmol/L BUN 6 L (9-20) mg/dL Glucose 123 H (75-100) mg/dL Lactate Dehydrogenase (91-180) units/L 10/23/19 10/24/19 10/24/19 Range/Units 17:44 04:58 04:58 MCHC (32-34) % Lymph % (Auto) 10.3 L (13.4-35.0) % [place] % (Auto) (0.0-7.3) % Lymph # 0.6 L (1.2-5.4) K/mm3 Seg Neutrophils % 85.8 H (40.0-70.0) % D-Dimer (0-234) ng/mlDDU Chloride (98-107) mmol/L Carbon Dioxide (22-30) mmol/L BUN (9-20) mg/dL Glucose 110 H 164 H (75-100) mg/dL Lactate Dehydrogenase 189 H (91-180) units/L HEART Score - HEART Score Troponin: Troponin T 0.013 ng/mL (0.00-0.029) 10/23/19 15:17
[2019-10-24] MEDS ORDERED: AZITHROMYCIN 500 MG in SODIUM CHLORIDE 0.9% 250ML 250 ML IV SCH (17:00)
[2019-10-24] MEDS ORDERED: NITROGLYCERIN 0.4 MG TAB SUBL SL PRN (17:00)
[2019-10-24] MEDS ORDERED: MELOXICAM 15 MG PO SCH (17:00)
[2019-10-24] MEDS ORDERED: traMADol 50 MG TAB PO PRN (17:00)
[2019-10-24] MEDS: ASPIRIN EC 81 MG TAB PO SCH (17:57)
[2019-10-24] MEDS ORDERED: BUDESONIDE 0.5 MG/2 ML NEBU IH SCH (20:00)
[2019-10-24] MEDS: METOPROLOL TARTRATE 25 MG TAB PO SCH (21:42)
[2019-10-24] MEDS: ENOXAPARIN 40 MG/0.4 ML INJ SUB-Q SCH (21:42)
[2019-10-24] MEDS: guaiFENesin ER 600 MG TAB PO SCH (21:42)
[2019-10-24] MEDS: CILOSTAZOL 100 MG TAB PO SCH (21:46)
[2019-10-24] MEDS: ARFORMOTEROL 15 MCG/2 ML NEBU IH SCH (21:57)
[2019-10-24] MEDS: BUDESONIDE 0.5 MG/2 ML NEBU IH SCH (21:58)
[2019-10-24] MEDS ORDERED: NON-FORMULARY EACH (Budesoni/Formotero 160-4.5(Nf) 2 PUFF) IH SCH (22:00)
[2019-10-24] MEDS ORDERED: cefTRIAXone/NS 1 GM/50 ML 1 GM/50 ML BAG IV SCH (22:00)
[2019-10-24] MEDS: MELOXICAM 7.5 MG TAB PO SCH (22:13)
[2019-10-25] MEDS: IPRATROPIUM/ALBUTEROL SULFATE 3 ML AMPUL.NEB IH SCH ×4 (03:55→21:47)
--- NOTE | 2019-10-25 09:23 | Progress Note ---
Assessment and Plan Cultures: Blood cultures no growth today COVID negative Assessment: 58 years old male with history of COPD/emphysema and CHF, former smoker, admitted on 10/23/2019 due to 2-week history of worsening shortness of breath and dyspnea on exertion associated with a recent fever: #Presumed COPD exacerbation: Patient with known-emphysema, with worsening symptoms and a recent fever. COVID test negative. Chest x-ray shows no infiltrates. Procal<0.05 x 2 #Hypoxemia: Possible due to COPD exacerbation Recommendations: Stop ceftriaxone Okay to start steroids for COPD exacerbation Ok to d/c on ceftin 500 mg po bid and doxycycline 100 mg po bid till 10/27 Will sign off Samantha Veloz MD Infectious Diseases Rd Scientist [facility] M [phone] O [phone] Subjective Date of service: 10/25/19 Principal diagnosis: COPD Interval history: Feels better no fever Objective - Exam Narrative Exam: General appearance: Alert in NAD Eyes: anicteric sclerae, moist conjunctivae; no lid-lag; PERRLA HENT: Atraumatic; Lungs: cta CV:rrr Abdomen: Soft Extremities: no edema, no cyanosis Skin: No rash. Psych: Appropriate affect, alert and oriented to person, place and time. Neuro: alert and oriented x 3. Moving all extermities - Constitutional Vitals: Vital Signs Temp Pulse Resp BP Pulse Ox 98.3 F 102 H 16 115/81 97 10/25/19 04:39 10/25/19 04:39 10/25/19 04:39 10/25/19 04:39 10/25/19 04:39 Temperature -Last 24 Hours Temperature 98.3 F Temperature 97.4 F Temperature 98.0 F Temperature 98.1 F - Labs CBC & Chem 7: 10/24/19 04:58 10/24/19 04:58 Labs: Abnormal lab results 10/24/19 10/24/19 10/25/19 Range/Units 11:22 21:42 07:53 POC Glucose 141 H 148 H 107 H (70-105)
[2019-10-25] MEDS: ASPIRIN EC 81 MG TAB PO SCH (09:35)
[2019-10-25] MEDS: MELOXICAM 7.5 MG TAB PO SCH (09:35)
[2019-10-25] MEDS: CILOSTAZOL 100 MG TAB PO SCH ×2 (09:36→22:09)
[2019-10-25] MEDS: guaiFENesin ER 600 MG TAB PO SCH ×2 (09:36→22:09)
[2019-10-25] MEDS: METOPROLOL TARTRATE 25 MG TAB PO SCH ×2 (09:36→22:09)
[2019-10-25] MEDS: dexAMETHasone 20 MG/5 ML VIAL IV SCH (09:43)
[2019-10-25] MEDS: ARFORMOTEROL 15 MCG/2 ML NEBU IH SCH ×2 (09:54→21:47)
[2019-10-25] MEDS: BUDESONIDE 0.5 MG/2 ML NEBU IH SCH ×2 (09:54→21:47)
[2019-10-25] MEDS ORDERED: MELOXICAM 7.5 MG TAB PO SCH (10:00)
[2019-10-25] MEDS ORDERED: predniSONE 50 MG TAB PO SCH (10:00)
[2019-10-25] MEDS ORDERED: TIOTROPIUM BROMIDE IH SCH (10:00)
[2019-10-25] MEDS: DOXYCYCLINE 100 MG CAP PO SCH ×2 (10:30→22:08)
--- NOTE | 2019-10-25 12:57 | Discharge Summary ---
Providers - Providers Date of Admission: 10/23/19 19:29 Date of discharge: 10/27/19 Attending physician: JON FINNEGAN 10/23/19 17:49 Consult to Physician [CONS] Routine Comment: Consulting Provider: DEN CASTELLON Physician Instructions: Reason For Exam: jamari johns Primary care physician: BINA GUAJARDO Hospitalization Condition: Critical Pertinent studies: Chest x-ray: No infiltrates 2D echocardiogram: EF 60% Hospital course: There is a 59-year-old white male with history of COPD on 2 L home oxygen, hypertension, remote history of tobacco abuse presented to the hospital with few days of cough and worsening short of breath. Patient was admitted to medical floor for COPD exacerbation and possible COVID-19 pneumonia. His COVID-19 test was negative. Patient was placed on scheduled nebs, iv abx, iv steroids and supplemental O2 to keep O2 sat at 94%. CXR showed no infiltrates. 2D echo was obtained for sustained symptoms of difficulty breathing, which showed preserved EF. Eventually patients symptom improved with medical management. Patient was then discharged home in stable condition with outpt f/u. Daily course: 10/23: Negative for COVID-19, patient remains symptomatic with difficulty breathing even on resting, continue to treat for COPD exacerbation and atypical pneumonia 10/24: Continue tp c/o SOB with minimal exertion. start on higher steroid dose, cont nebs as scheduled 10/25: cont to c/o sob despite of maximal treatment. will get 2d echo, pulmonary consult 10/26; 2D echo showed EF of 60%, patient symptomatically improved. DC home with oral antibiotic to complete treatment for atypical pneumonia and 5 days of steroid. Patient will follow-up with pulmonology outpatient. Discharge diagnosis: Acute COPD exacerbation Acute on chronic respiratory failure Suspected COVID-19ruled out with negative test Hypertension, stable Physical exam: GENERAL: well-developed and well-nourished elderly white male sitting on bed appeared to be in no discomfort. HEENT: Normocephalic. Atraumatic. No conjunctival congestion or icterus. Patient has moist mucous membranes. NECK: Supple. Trachea midline. CHEST/LUNGS: diminished BS auscultated bilaterally, breathing nonlabored. No wheezes crackles or rhonchi. HEART/CARDIOVASCULAR: Regular in rate and rhythm. S1 and S2 positive. ABDOMEN: Abdomen is soft, nontender. Patient has normal bowel sounds. SKIN: There is no rash. Warm and dry. NEURO: No focal motor deficit. Follows command. MUSCULOSKELETAL: No joint effusion or tenderness. EXTRIMITY: No edema, no cyanosis or clubbing. PSYCH: Cooperative. Disposition: [id number]/[place]-06 HOME UNDER HOME [facility] Time spent for discharge: 34 minutes Core Measure Documentation - Palliative Care Palliative Care/ Comfort Measures: Not Applicable - Core Measures Any of the following diagnoses?: history only Exam - Constitutional Vitals: Temp Pulse Resp BP Pulse Ox 98.3 F 95 H 16 115/81 97 10/25/19 04:39 10/25/19 09:36 10/25/19 04:39 10/25/19 04:39 10/25/19 04:39 Plan Activity: advance as tolerated Weight Bearing Status: Weight Bear as Tolerated Diet: low fat, low salt Special Instructions: home oxygen via (n/c) Follow up with: BINA GUAJARDO [Primary Care Provider] - 3-5 Days Prescriptions: cefUROXime [Ceftin] 500 mg PO Q12HR #7 tablet predniSONE [Deltasone] 50 mg PO QDAY #5 tab Tamsulosin [Flomax] 0.4 mg PO QDAY #30 capsule DOXYCYCLINE Hyclate [Vibramycin CAP] 100 mg PO Q12HR #7 tab
[2019-10-25] MEDS: methylPREDNISolone Sod Succinate 125 MG/2 ML INJ IV SCH ×2 (17:55→22:11)
[2019-10-25] MEDS: ENOXAPARIN 40 MG/0.4 ML INJ SUB-Q SCH (22:10)
[2019-10-26] MEDS: IPRATROPIUM/ALBUTEROL SULFATE 3 ML AMPUL.NEB IH SCH ×4 (05:19→20:29)
[2019-10-26] MEDS: methylPREDNISolone Sod Succinate 125 MG/2 ML INJ IV SCH ×3 (06:07→21:19)
[2019-10-26] MEDS: ARFORMOTEROL 15 MCG/2 ML NEBU IH SCH ×2 (07:49→20:28)
[2019-10-26] MEDS: BUDESONIDE 0.5 MG/2 ML NEBU IH SCH ×2 (07:49→20:29)
[2019-10-26] MEDS: ACETAMINOPHEN 325 MG TAB PO PRN (08:28)
[2019-10-26] MEDS: ASPIRIN EC 81 MG TAB PO SCH (09:33)
[2019-10-26] MEDS: DOXYCYCLINE 100 MG CAP PO SCH ×2 (09:33→21:18)
[2019-10-26] MEDS: guaiFENesin ER 600 MG TAB PO SCH ×2 (09:33→21:18)
[2019-10-26] MEDS: MELOXICAM 7.5 MG TAB PO SCH (09:34)
[2019-10-26] MEDS: METOPROLOL TARTRATE 25 MG TAB PO SCH ×2 (09:34→21:27)
[2019-10-26] MEDS: CILOSTAZOL 100 MG TAB PO SCH ×2 (12:32→21:18)
--- NOTE | 2019-10-26 14:06 | Progress Note ---
Assessment and Plan /Acute COPD exacerbation Patient on nebulizer treatment, abx and IV steroid. Will keep O2 saturation greater or equal to 92%. /Acute on chronic hypoxic respiratory failure Due to COPD exacerbation, negative for COVID-19 Patient placed on oxygen will keep O2 saturation greater or equal to 92%. Continue to treat for atypical pneumonia / Suspected COVID-19 virus infection Patient ruled out for COVID-19. Treat for atypical pneumonia for total of 1 weeks per ID recommendation / HTN (hypertension) We will continue patient's routine home medications and monitor vital signs closely. / DVT prophylaxis Patient placed on subcutaneous Lovenox. /Full code status 10/23: Negative for COVID-19, patient remains symptomatic with difficulty breathing even on resting, continue to treat for COPD exacerbation and atypical pneumonia 10/24: Continue tp c/o SOB with minimal exertion. start on higher steroid dose, cont nebs as scheduled Physical exam: GENERAL: well-developed and well-nourished elderly white male sitting on bed appeared to be in no discomfort. HEENT: Normocephalic. Atraumatic. No conjunctival congestion or icterus. Patient has moist mucous membranes. NECK: Supple. Trachea midline. CHEST/LUNGS: diminished BS auscultated bilaterally, breathing nonlabored. No wheezes crackles or rhonchi. HEART/CARDIOVASCULAR: Regular in rate and rhythm. S1 and S2 positive. ABDOMEN: Abdomen is soft, nontender. Patient has normal bowel sounds. SKIN: There is no rash. Warm and dry. NEURO: No focal motor deficit. Follows command. MUSCULOSKELETAL: No joint effusion or tenderness. EXTRIMITY: No edema, no cyanosis or clubbing. PSYCH: Cooperative. Subjective Date of service: 10/25/19 Principal diagnosis: COPD Interval history: Patient seen and examined. Medical records and medication list reviewed. No acute event overnight noted by the RN. Patient is COVID-19 test came as negative Patient continue to complains of difficulty breathing even on resting and minimal exertion. Patient is tolerating diet. Discussed plan of care at bedside with patient. Objective - Constitutional Vitals: Vital Signs - 12hr 10/26/19 10/26/19 10/26/19 04:27 07:51 07:52 Temperature 98.7 F Pulse Rate 99 H Pulse Rate [ 92 H Bilateral] Respiratory 20 Rate Respiratory 20 Rate [Bilateral ] Blood Pressure 95/67 O2 Sat by Pulse 96 96 Oximetry 10/26/19 10/26/19 11:40 13:11 Temperature 98.9 F Pulse Rate 99 H Pulse Rate [ 86 Bilateral] Respiratory 16 Rate Respiratory 18 Rate [Bilateral ] Blood Pressure 119/84 O2 Sat by Pulse 96 Oximetry - Labs CBC & Chem 7: 10/24/19 04:58 10/26/19 15:41 HEART Score - HEART Score Troponin: Troponin T 0.013 ng/mL (0.00-0.029) 10/23/19 15:17
--- NOTE | 2019-10-26 14:11 | Progress Note ---
Assessment and Plan /Acute COPD exacerbation Patient on nebulizer treatment, abx and IV steroid. Will keep O2 saturation greater or equal to 92%. /Acute on chronic hypoxic respiratory failure Due to COPD exacerbation, negative for COVID-19 Patient placed on oxygen will keep O2 saturation greater or equal to 92%. Continue to treat for atypical pneumonia / Suspected COVID-19 virus infection Patient ruled out for COVID-19. Treat for atypical pneumonia for total of 1 weeks per ID recommendation / HTN (hypertension) We will continue patient's routine home medications and monitor vital signs closely. / DVT prophylaxis Patient placed on subcutaneous Lovenox. /Full code status 10/23: Negative for COVID-19, patient remains symptomatic with difficulty breathing even on resting, continue to treat for COPD exacerbation and atypical pneumonia 10/24: Continue tp c/o SOB with minimal exertion. start on higher steroid dose, cont nebs as scheduled 10/25: cont to c/o sob despite of maximal treatment. will get 2d echo, pulmonary consult Physical exam: GENERAL: well-developed and well-nourished elderly white male sitting on bed appeared to be in no discomfort. HEENT: Normocephalic. Atraumatic. No conjunctival congestion or icterus. Patient has moist mucous membranes. NECK: Supple. Trachea midline. CHEST/LUNGS: diminished BS auscultated bilaterally, breathing nonlabored. No wheezes crackles or rhonchi. HEART/CARDIOVASCULAR: Regular in rate and rhythm. S1 and S2 positive. ABDOMEN: Abdomen is soft, nontender. Patient has normal bowel sounds. SKIN: There is no rash. Warm and dry. NEURO: No focal motor deficit. Follows command. MUSCULOSKELETAL: No joint effusion or tenderness. EXTRIMITY: No edema, no cyanosis or clubbing. PSYCH: Cooperative. Subjective Date of service: 10/26/19 Principal diagnosis: COPD Interval history: Patient seen and examined. Medical records and medication list reviewed. No acute event overnight noted by the RN. Patient is COVID-19 test came as negative Patient states that his breathing on resting slightly improved but still significantly short of breath even going to the restroom from his bed. Patient is tolerating diet. Discussed plan of care at bedside with patient. Objective - Constitutional Vitals: Vital Signs - 12hr 10/26/19 10/26/19 10/26/19 04:27 07:51 07:52 Temperature 98.7 F Pulse Rate 99 H Pulse Rate [ 92 H Bilateral] Respiratory 20 Rate Respiratory 20 Rate [Bilateral ] Blood Pressure 95/67 O2 Sat by Pulse 96 96 Oximetry 10/26/19 10/26/19 11:40 13:11 Temperature 98.9 F Pulse Rate 99 H Pulse Rate [ 86 Bilateral] Respiratory 16 Rate Respiratory 18 Rate [Bilateral ] Blood Pressure 119/84 O2 Sat by Pulse 96 Oximetry - Labs CBC & Chem 7: 10/24/19 04:58 10/26/19 15:41 HEART Score - HEART Score Troponin: Troponin T 0.013 ng/mL (0.00-0.029) 10/23/19 15:17
[2019-10-26] MEDS: guaiFENesin 100 MG/5 ML ORAL LIQD PO PRN ×2 (14:34→19:18)
--- NOTE | 2019-10-26 15:45 | Consultation ---
History of Present Illness Consult date: 10/26/19 Requesting physician: JON FINNEGAN Reason for consult: COPD History of present illness: PULMONARY/CCM CONSULT NOTE (Full dictation # [id number]) Please see dictated notes for full details Past History Past Medical History: atrial fib, heart failure, hypertension, other (History of AAA) Past Surgical History: appendectomy Social history: smoking (Patient is a former smoker) Family history: no significant family history Medications and Allergies Allergies Allergy/AdvReac Type Severity Reaction Status Date / Time ciprofloxacin Allergy Rash Verified 12/09/18 16:13 Home Medications Medication Instructions Recorded Confirmed Last Taken Type Aspirin [Adult Low Dose Aspirin EC] 81 mg PO DAILY 11/06/17 10/23/19 11/06/17 History ALBUTEROL NEB's [Proventil 0.083% 2.5 mg IH Q6H PRN #30 nebu 11/08/17 10/23/19 Unknown Rx NEBS] Albuterol Sulfate [Proventil Hfa] 2 puff IH QID PRN #30 hfa.aer.ad 11/08/17 10/23/19 Unknown Rx Budesoni/Formotero 160-4.5(Nf) 2 puff IH BID #30 inha 11/08/17 10/23/19 Unknown Rx [Symbicort 160-4.5 (Nf)] Metoprolol [Lopressor TAB] 12.5 mg PO BID #60 tablet 11/08/17 10/23/19 Unknown Rx Nitroglycerin [Nitrostat] 0.4 mg SL Q5M PRN #30 tablet 11/08/17 10/23/19 Unknown Rx Tiotropium [place] [Spiriva 4 puff IH DAILY #30 mist.inhal 11/08/17 10/23/19 Unknown Rx Respimat] cilostazoL [Pletal] 100 mg PO BID #60 tablet 11/08/17 10/23/19 Unknown Rx guaiFENesin ER [Mucinex ER] 600 mg PO BID #14 tablet 03/20/18 10/23/19 Unknown Rx traMADoL [Ultram 50 MG tab] 50 mg PO Q6HR PRN #7 tablet 12/15/18 10/23/19 Unknown Rx Meloxicam [Qmiiz Odt] 15 mg PO DAILY #7 tab.rapdis 01/18/19 10/23/19 Unknown Rx methOCARBAMOL [Robaxin TAB] 750 mg PO Q8H PRN #14 tablet 01/18/19 10/23/19 Unknown Rx DOXYCYCLINE Hyclate [Vibramycin 100 mg PO Q12HR #7 tab 10/25/19 Unknown Rx CAP] cefUROXime [Ceftin] 500 mg PO Q12HR #7 tablet 10/25/19 Unknown Rx predniSONE [Deltasone] 50 mg PO QDAY #5 tab 10/25/19 Unknown Rx Active Meds: Active Medications Acetaminophen (Tylenol) 650 mg PO Q4H PRN PRN Reason: Pain MILD(1-3)/Fever >100.5/[place] Last Admin: 10/26/19 08:28 Dose: 650 mg Documented by: Albuterol/Ipratropium (Duoneb *Not For Prn Use*) 1 ampul IH Q6HRT [facility] Last Admin: 10/26/19 13:10 Dose: 1 ampul Documented by: Arformoterol Tartrate (Brovana Nebu) 15 mcg IH Q12HRT [facility] Last Admin: 10/26/19 07:49 Dose: 15 mcg Documented by: Aspirin (Halfprin Ec) 81 mg PO DAILY [facility] Last Admin: 10/26/19 09:33 Dose: 81 mg Documented by: Budesonide (Pulmicort) 0.5 mg IH Q12HRT [facility] Last Admin: 10/26/19 07:49 Dose: 0.5 mg Documented by: Cefuroxime Axetil (Ceftin) 500 mg PO Q12HR [facility] Stop: 10/28/19 23:59 Last Admin: 10/26/19 09:32 Dose: 500 mg Documented by: Cilostazol (Pletal) 100 mg PO BID [facility] Last Admin: 10/26/19 12:32 Dose: 100 mg Documented by: Doxycycline Hyclate (Vibramycin) 100 mg PO Q12HR [facility] Stop: 10/28/19 23:59 Last Admin: 10/26/19 09:33 Dose: 100 mg Documented by: Enoxaparin Sodium (Enoxaparin) 40 mg SUB-Q QDAY@2200 [facility] Last Admin: 10/25/19 22:10 Dose: 40 mg Documented by: Guaifenesin (Mucinex Er) 600 mg PO BID [facility] Last Admin: 10/26/19 09:33 Dose: 600 mg Documented by: Guaifenesin (Robitussin) 200 mg PO Q4H PRN PRN Reason: Cough Last Admin: 10/26/19 14:34 Dose: 200 mg Documented by: Magnesium Hydroxide (Milk Of Magnesia) 30 ml PO Q4H PRN PRN Reason: Constipation Last Admin: 10/25/19 09:38 Dose: 30 ml Documented by: Meloxicam (Mobic) 15 mg PO QDAY [facility] Last Admin: 10/26/19 09:34 Dose: 15 mg Documented by: Methocarbamol (Robaxin) 750 mg PO Q8H PRN PRN Reason: Pain, Moderate (4-6) Last Admin: 10/25/19 09:37 Dose: 750 mg Documented by: Methylprednisolone Sodium Succinate (Solu-Medrol) 60 mg IV Q8HR [facility] Last Admin: 10/26/19 14:34 Dose: 60 mg Documented by: Metoprolol Tartrate (Metoprolol) 12.5 mg PO BID [facility] Last Admin: 10/26/19 09:34 Dose: 12.5 mg Documented by: Nitroglycerin (Nitrostat) 0.4 mg SL Q5M PRN PRN Reason: Chest Pain Ondansetron HCl (Zofran) 4 mg IV Q8H PRN PRN Reason: Nausea And Vomiting Sodium Chloride (Sodium Chloride Flush Syringe 10 Ml) 10 ml IV BID [facility] Last Admin: 10/26/19 09:38 Dose: 10 ml Documented by: Sodium Chloride (Sodium Chloride Flush Syringe 10 Ml) 10 ml IV PRN PRN PRN Reason: LINE FLUSH Last Admin: 10/26/19 06:07 Dose: 10 ml Documented by: Tramadol HCl (Ultram) 50 mg PO Q6HR PRN PRN Reason: PAIN Physical Examination Vital signs: Vital Signs Pulse Resp Pulse Ox 99 H 20 98 10/23/19 15:35 10/23/19 15:35 10/23/19 15:35 Results - Laboratory Findings CBC and BMP: 10/24/19 04:58 10/26/19 15:41 PT/INR, D-dimer PT 13.6 Sec. (12.2-14.9) 10/24/19 04:58 INR 1.06 (0.87-1.13) 10/24/19 04:58 D-Dimer 284.90 ng/mlDDU (0-234) H 10/23/19 17:44 Abnormal lab findings: Abnormal Labs 10/23/19 10/23/19 10/23/19 15:17 15:17 17:44 MCHC 35 H Lymph % (Auto) [place] % (Auto) 12.3 H Lymph # Seg Neutrophils % D-Dimer 284.90 H Chloride 97.7 L Carbon Dioxide 31 H BUN 6 L Glucose 123 H POC Glucose Lactate Dehydrogenase 10/23/19 10/24/19 10/24/19 17:44 04:58 04:58 MCHC Lymph % (Auto) 10.3 L [place] % (Auto) Lymph # 0.6 L Seg Neutrophils % 85.8 H D-Dimer Chloride Carbon Dioxide BUN Glucose 110 H 164 H POC Glucose Lactate Dehydrogenase 189 H 10/24/19 10/24/19 10/25/19 11:22 21:42 07:53 MCHC Lymph % (Auto) [place] % (Auto) Lymph # Seg Neutrophils % D-Dimer Chloride Carbon Dioxide BUN Glucose POC Glucose 141 H 148 H 107 H Lactate Dehydrogenase
[2019-10-26 16:28] LABS: BUN/Creatinine Ratio 21; Blood Urea Nitrogen 17 mg/dL (9-20); Calcium 9.2 mg/dL (8.4-10.2); Hemolysis Index 3
[2019-10-26] MEDS: ENOXAPARIN 40 MG/0.4 ML INJ SUB-Q SCH (21:19)
[2019-10-27] MEDS ORDERED: PANTOPRAZOLE 40 MG TAB PO ONE (00:35)
--- NOTE | 2019-10-27 02:34 | Consultation ---
CONSULTING PHYSICIAN: Dr. Cortez. REASON FOR CONSULTATION: COPD. CHIEF COMPLAINT AND HISTORY OF PRESENT ILLNESS: As follows: The patient is a 58-year-old male with past medical history significant for home oxygen dependent chronic obstructive lung disease, on 3 liters nasal cannula, complains about a week of increasing shortness of breath. He states he was seen at the outpatient Pulmonary and Cardiology offices, but because of his symptoms, he was told to come to the hospital. He states that they had told him that he had pneumonia when he got there. He agreed to the cough with expectoration, denies any hemoptysis. Denied any real chest pain, just noticed he was more short of breath than usual. He has been compliant with his home oxygen. Denies any sick contacts. Denies any known COVID-19 contacts. It seems like the patient was initially admitted to the COVID-19 floor and he had COVID-19 testing done, the results came back negative. Ultimately, he was transferred to the regular floor. We are asked to assist with management. When I stopped by to see him, he was resting in bed, still short of breath, but overall better. Denies any fevers or chills. He does have a 10+ pack year remote tobacco smoking history, but quit smoking 2 years ago. He denies any new onset leg pain or swelling either unilaterally or bilaterally. That really is as much of the history of presentation as I have. PAST MEDICAL HISTORY: Atrial fibrillation, congestive heart failure, hypertension, history of abdominal aortic aneurysm, history of home oxygen dependent COPD. PAST SURGICAL HISTORY: He has had an appendectomy. MEDICATIONS: He was on at the time I stopped by to see him were reviewed. Pertinent medications include the following: DuoNeb nebulizer treatments 1 ampule nebulized q. 6 hours, Brovana 15 mcg nebulized q. 12 hours, aspirin 81 mg p.o. daily, Pulmicort 0.5 mg nebulized q. 12 hours, Ceftin 500 mg p.o. q. 12 hours, Pletal, cilostazol 100 mg p.o. b.i.d., Vibramycin 100 mg p.o. q. 12 hours, Lovenox 40 mg subcutaneous daily, Mucinex ER 600 mg p.o. b.i.d., p.r.n. Robitussin cough syrup, meloxicam 15 mg p.o. daily, Robaxin 750 mg p.o. q. 8 hours p.r.n., Solu-Medrol 16 mg IV daily, metoprolol 12.5 mg p.o. b.i.d., Zofran 4 mg IV q. 8 hours p.r.n. nausea and vomiting, tramadol 50 mg p.o. q. 6 hours p.r.n. pain. ALLERGIES: CIPROFLOXACIN. Nature of this allergy is unknown. DIET: Well-built gentleman. Denies acute weight loss or gain in the preceding few weeks to months. FAMILY AND SOCIAL HISTORY: He does have a 20+ pack year tobacco smoking history, quit smoking 2 years ago. Denies alcohol or illicit drug use or abuse at this time. Denies any other family history. REVIEW OF SYSTEMS: No loss of consciousness. No new onset seizures. No new onset focal weakness. No gross hematochezia or melena. No gross hematuria or dysuria. No hematemesis. No hemoptysis. He has the increased dyspnea on exertion. Denies orthopnea. Denied paroxysmal nocturnal dyspnea. Denies polydipsia or polyuria. Denies heat or cold intolerance. Complete 13-system review of systems obtained. Pertinent positives and/or negatives as in body of history above, otherwise noncontributory. PHYSICAL EXAMINATION: VITAL SIGNS: Since he has been afebrile, temperature was 98.1 degrees Fahrenheit at presentation, pulse of 99, respiratory rate of 20, blood pressure was 145/94, O2 sats were 98%. Inspired oxygen concentration at that time was not recorded. When I saw him, O2 sats were 98% that was on 3 liters nasal cannula. GENERAL: He is a middle-aged male, normocephalic, atraumatic, talking to me in mostly full sentences with mildly increased respiratory effort at rest. HEAD, EYES, EARS, NOSE AND HEENT: Anicteric. No conjunctival erythema. Oropharynx was moist. Mallampati #3 oropharynx. No gross jugular venous distention, no thyromegaly. NECK: Grossly, there were no palpable lymph nodes in the supraclavicular or submandibular lymph node chains. LUNGS: Auscultation of both lung joy was significant only for right lower lobe crackles. Diminished bilateral breath sounds, prolonged expiratory phase. No active wheezing. HEART: Heart sounds 1 and 2 are heard at the time of my evaluation, regular rate and rhythm without overt rubs or murmurs. ABDOMEN: Soft, full, bowel sounds are positive, nontender, no palpable hepatosplenomegaly. EXTREMITIES: Without overt digital clubbing or cyanosis. Pedal pulses are 2+ bilaterally. No pedal edema. NEUROLOGIC: Pupils are equal, round, about 4 mm, reactive to light. Extraocular muscle movements were intact. He moves all 4 extremities spontaneously. SKIN: Normal turgor without overt cellulitis or rash. PSYCHIATRIC: Mood is normal. Affect is appropriate. LABORATORY DATA: From my review are as follows: Admission white cell count 5500, hemoglobin 13.3, hematocrit 38.0, platelet count 200. D-dimer was elevated at 285. Serum sodium was 138, potassium 4.5, chloride 98, bicarbonate 31, BUN 6, creatinine 0.8, glucose was 123. Lactic acid level within normal limits. Liver function test within normal limits. CRP within normal limits. Procalcitonin within normal limits. Troponin within normal limits. Urinalysis unremarkable. PCR coronavirus test was negative. Two sets of blood cultures, no growth to date x 3 days. Chest x-ray was done, slightly rotated to the right. I have a chest x-ray from November of last year to compare it against. This particular chest x-ray actually shows improvement in the right upper lobe process from that time. Essentially, he has COPD changes, flattening of the right hemidiaphragm and hyperinflation, increased rib spaces within the rib markings and no focal acute process. ASSESSMENT: 1. Acute on chronic hypoxemic respiratory failure. 2. Acute chronic obstructive pulmonary disease exacerbation. 3. History of atrial fibrillation. 4. Hypertension by history. 5. Elevated serum D-dimer. 6. Suspected COVID-19 virus infection. PLAN: He is doing much better. They just added systemic steroids today. Hopefully, we can quickly taper him down as early as tomorrow, taper him to like 40 mg IV q. 12 hours and then to oral steroids by Monday. I agree with long and short-acting bronchodilators as well as inhaled corticosteroids. I agree with empiric community-acquired pneumonia therapy. Continued tobacco abstinence has been counseled. He is appropriately on DVT prophylaxis. I will be putting him also on GI prophylaxis, especially with him on systemic steroids. Flu and pneumonia vaccination will be addressed per protocol. His rate is well controlled, otherwise I will defer to the attendant for management of chronic medical problems. Thank you very much for the consult Dr. Cortez. We will follow along and make further recommendations as picture progresses/becomes clearer. JOB# [id number] SHANNON/LAURA
[2019-10-27] MEDS: IPRATROPIUM/ALBUTEROL SULFATE 3 ML AMPUL.NEB IH SCH ×3 (02:50→13:27)
[2019-10-27] MEDS: methylPREDNISolone Sod Succinate 125 MG/2 ML INJ IV SCH ×2 (06:34→13:19)
[2019-10-27] MEDS: guaiFENesin 100 MG/5 ML ORAL LIQD PO PRN ×2 (06:40→13:18)
[2019-10-27] MEDS: ARFORMOTEROL 15 MCG/2 ML NEBU IH SCH (07:35)
[2019-10-27] MEDS: BUDESONIDE 0.5 MG/2 ML NEBU IH SCH (07:35)
[2019-10-27] MEDS: guaiFENesin ER 600 MG TAB PO SCH (09:34)
[2019-10-27] MEDS: ASPIRIN EC 81 MG TAB PO SCH (09:34)
[2019-10-27] MEDS: MELOXICAM 7.5 MG TAB PO SCH (09:34)
[2019-10-27] MEDS: METOPROLOL TARTRATE 25 MG TAB PO SCH (09:35)
[2019-10-27] MEDS: DOXYCYCLINE 100 MG CAP PO SCH (09:35)
[2019-10-27] MEDS: CILOSTAZOL 100 MG TAB PO SCH (11:00)
[2019-10-27] MEDS ORDERED: TAMSULOSIN 0.4 MG CAP PO SCH (13:00)
[2019-10-27 13:20] VITALS: BP 134/86
--- NOTE | 2019-10-27 13:46 | Progress Note ---
Assessment and Plan Acute hypercapnic hypoxemic respiratory failure SIRS Pneumonia (CAP) Acute COPD exacerbation Pneumonia CAD (coronary artery disease) HTN (hypertension) PAD (peripheral artery disease) GERD - continue Rocephin and Zyvox; de-escalate per ID rec's - continue supplemental oxygen as needed to keep O2 sat's > 90% - continue systemic steroids with taper - continue ICS - continue bronchodilators(MAXIME & LABA) with pulmonary hygiene per RT - tobacco abstinence counseled at bedside - GI % VTE prophylaxis - outpatient pulmonary clinic f/up - continue other care per attending / other consultants ... re-evaluate in am and prn Subjective Date of service: 10/27/19 Principal diagnosis: Ac on Ch hypercapnic hypoxemic resp failure; SIRS; AE-COPD Interval history: Patient is seen today for: Acute on Chronic hypercapnic & hypoxemic respiratory failure; SIRS; Acute COPD exacerbation; CAD (coronary artery disease); HTN (hypertension); PAD (peripheral artery disease); GERD Seen and examined at bedside; 24hour events reviewed; nursing and respiratory care staff consulted; no adverse overnight events reported to me; resting peacefully sitting in bed; Objective Vital Signs - 12hr 10/27/19 10/27/19 10/27/19 05:06 07:35 09:14 Temperature 98.5 F Pulse Rate 98 H 94 H Pulse Rate [ 94 H Bilateral] Respiratory 20 Rate Respiratory 20 Rate [Bilateral ] Blood Pressure 122/82 128/84 O2 Sat by Pulse 95 97 Oximetry 10/27/19 10/27/19 10/27/19 09:51 10:00 11:28 Temperature 98.7 F Pulse Rate 98 H Pulse Rate [ Bilateral] Respiratory 18 Rate Respiratory Rate [Bilateral ] Blood Pressure 134/86 O2 Sat by Pulse 94 96 96 Oximetry 10/27/19 13:29 Temperature Pulse Rate Pulse Rate [ 98 H Bilateral] Respiratory Rate Respiratory 18 Rate [Bilateral ] Blood Pressure O2 Sat by Pulse Oximetry CBC and BMP: 10/24/19 04:58 10/26/19 15:41 ABG, PT/INR, D-dimer: PT/INR, D-dimer PT 13.6 Sec. (12.2-14.9) 10/24/19 04:58 INR 1.06 (0.87-1.13) 10/24/19 04:58 D-Dimer 284.90 ng/mlDDU (0-234) H 10/23/19 17:44 Abnormal lab findings: Abnormal Labs 10/23/19 10/23/19 10/23/19 15:17 15:17 17:44 MCHC 35 H Lymph % (Auto) [place] % (Auto) 12.3 H Lymph # Seg Neutrophils % D-Dimer 284.90 H Chloride 97.7 L Carbon Dioxide 31 H BUN 6 L Glucose 123 H POC Glucose Lactate Dehydrogenase 10/23/19 10/24/19 10/24/19 17:44 04:58 04:58 MCHC Lymph % (Auto) 10.3 L [place] % (Auto) Lymph # 0.6 L Seg Neutrophils % 85.8 H D-Dimer Chloride Carbon Dioxide BUN Glucose 110 H 164 H POC Glucose Lactate Dehydrogenase 189 H 10/24/19 10/24/19 10/25/19 11:22 21:42 07:53 MCHC Lymph % (Auto) [place] % (Auto) Lymph # Seg Neutrophils % D-Dimer Chloride Carbon Dioxide BUN Glucose POC Glucose 141 H 148 H 107 H Lactate Dehydrogenase 10/26/19 15:41 MCHC Lymph % (Auto) [place] % (Auto) Lymph # Seg Neutrophils % D-Dimer Chloride 96.8 L Carbon Dioxide BUN Glucose 193 H POC Glucose Lactate Dehydrogenase
== END 2019-10-27 14:45 | disposition home or self-care (01) | DRG 189 ==
LOC: ED 15:00 → 3A 19:29
PROVIDERS: ADMIT Internal Medicine; ATTEND Internal Medicine
DX: J96.21 Acute and chronic respiratory failure with hypoxia (principal); J18.9 Pneumonia, unspecified organism; J96.22 Acute and chronic respiratory failure with hypercapnia; R65.10 Systemic inflammatory response syndrome (SIRS) of non-infectious origin without acute organ dysfunction; I25.10 Atherosclerotic heart disease of native coronary artery without angina pectoris; I73.9 Peripheral vascular disease, unspecified; K21.9 Gastro-esophageal reflux disease without esophagitis; I48.91 Unspecified atrial fibrillation; I11.0 Hypertensive heart disease with heart failure; I50.9 Heart failure, unspecified; J43.9 Emphysema, unspecified; Z99.81 Dependence on supplemental oxygen; Z03.818 Encounter for observation for suspected exposure to other biological agents ruled out; Z90.49 Acquired absence of other specified parts of digestive tract; Z88.1 Allergy status to other antibiotic agents; Z79.899 Other long term (current) drug therapy; Z79.82 Long term (current) use of aspirin; Z87.891 Personal history of nicotine dependence
CPT/HCPCS: 36415; 71045; 80048; 80053; 81001; 82140; 82728; 82947; 82962; 83615; 84145; 84484; 85025; 85379; 85610; 86140; 87040; 93005; 93306; 94640; 94644; 94760; G0378; J0456; J0696; J1100; J1650; J2930; J7050; J7512; U0003-CS

== ENCOUNTER 2020-03-09 10:30 | Outpatient (CLI) | payer MEDICAID ==
--- NOTE | 2020-03-09 13:32 | Cat Scan Report ---
CT CHEST WITH CONTRAST INDICATION / CLINICAL INFORMATION: ABNORMAL FINDING OF LUNG FIELD. TECHNIQUE: Axial CT images were obtained through the chest after 100 cc Omnipaque 300 IV contrast. Sagittal and coronal reformatted images. All CT scans at this location are performed using CT dose reduction for A GENE by means of automated exposure control. COMPARISON: AP chest 10/23/2019. CTA chest report dated 12/07/2018. FINDINGS: HEART: No significant abnormality. THORACIC AORTA: Mild dilatation of the ascending aorta is again noted measuring 4 cm in diameter. MEDIASTINUM and GRIFFIN: No significant abnormality. LUNGS: Moderate centrilobular emphysematous changes are identified bilaterally. There is focal scarri ng in the left lung apex and multiple bulla. No evidence for mass, infiltrate or interstitial lung di sease. PLEURA: No significant pleural effusion. No pneumothorax. SKELETAL SYSTEM: Mild thoracic spondylosis. UPPER ABDOMEN: No significant abnormality. ADDITIONAL FINDINGS: None. IMPRESSION: Emphysema. No acute process, mass or adenopathy. Stable mild dilatation of the ascending aorta measuring 4 cm in diameter. Signer Name: Rakan Farah Jr, MD Signed: 03/09/2020 1:27 PM Workstation Name: [id number]
--- NOTE | 2020-03-09 16:14 | XRay Report ---
LUMBAR SPINE 3 VIEW INDICATION / CLINICAL INFORMATION: BACK PAIN. COMPARISON: None available. FINDINGS: BONES/JOINT(S): No acute fracture or subluxation. Mild generalized spondylosis with small anterior an d lateral osteophytes, without significant disc height loss. SOFT TISSUES: No significant abnormality. ADDITIONAL FINDINGS: None. Signer Name: Steve Shepherd MD Signed: 03/09/2020 4:10 PM Workstation Name: [id number]
--- NOTE | 2020-03-09 16:17 | XRay Report ---
. XR spine thoracic 3V HISTORY: BACK PAIN COMPARISON: None. TECHNIQUE: 4 view(s) of the thoracic spine obtained. FINDINGS: Vertebrae: Normal alignment. Vertebral body heights are preserved. Spondylosis:Mild spondylotic changes appear commensurate for age. IMPRESSION: 1. No acute abnormality of the thoracic spine. Signer Name: Yusuf De Anda MD Signed: 03/09/2020 4:13 PM Workstation Name: [id number]
== END 2020-03-09 10:31 | disposition home or self-care (01) ==
LOC: CT 10:30
PROVIDERS: ATTEND Internal Medicine
DX: J43.8 Other emphysema (principal); I77.819 Aortic ectasia, unspecified site; R91.8 Other nonspecific abnormal finding of lung field; M47.814 Spondylosis without myelopathy or radiculopathy, thoracic region; M47.817 Spondylosis without myelopathy or radiculopathy, lumbosacral region
CPT/HCPCS: 71260; 72072; 72100; Q9967